=== PATIENT | male | born 1950 | race Caucasian/White ===

== ENCOUNTER 2016-12-31 12:29 | Inpatient (IN) | payer MEDICARE ==
[~2016-12-31] VITALS: Ht 177.8 cm; Wt 66.9 kg
[~2016-12-31 12:29] MED LIST: ALBU0.086 NEB; AMIT25 PO; AMLO5 PO; FENT100D TD; FERR324T4 PO; GABA400C5 PO; IPRA0.02 NEB; LACT20SO4 PO; LEVA500T PO; LEVE500T10 PO; LEXA10TA PO; OMPR20CCR PO; PRED20 PO; RISP2TAB2 PO; VITA500S3 PO; Z.0.OXYGEN INH
[2016-12-31 12:36] VITALS: BP 147/95; PULSE 87; RESP 20; TEMP 98.5; O2SAT 92
[2016-12-31] MEDS ORDERED: ZOLP10TA3 PO (12:58)
[2016-12-31] MEDS ORDERED: BUPR300T PO (12:58)
--- NOTE | 2016-12-31 12:58 | PD ---
HPI Chief Complaint: Suicide Ideation/Attempt Time Seen by Provider: 12:53 Travel History International Travel<30 days: No Contact w/Intl Traveler<30days: No Traveled to known affect area: No History of Present Illness HPI This 66-year-old male presents with complaint of suicidal ideation. He says that last night he was going to kill himself. He started the lawnmower in the shed and one in the shed and stayed there for a couple of minutes . He has a history of depression. He has tried to kill himself in the past. He sees Dr. Hall on a regular basis and is currently on amitriptyline and Wellbutrin. He is a heavy drinker and has DTs when he stops drinking. He uses oxygen at night because of COPD. He continues to smoke 2 packs a day He has chronic pain in his left shoulder from a staph infection. He is on fentanyl patches for this pain. PFSH Past Medical History Arthritis: No Asthma: No Autoimmune Disease: No Blood Disorders: No Anxiety: No Depression: No Cancer: Yes (MELANOMA RIGHT ARM) Cardiovascular Problems: No High Cholesterol: No Chemotherapy: No Cirrhosis: Yes COPD: Yes Cerebrovascular Accident: Yes Diabetes: No Diminished Hearing: No Endocrine: No Gastrointestinal Disorders: Yes (PEPTIC ULCER HX, GERD) GERD: No Genitourinary: No Hepatitis: Yes (C) Hiatal Hernia: No Hypertension: Yes Immune Disorder: No Implanted Vascular Access Dvce: Yes Musculoskeletal: Yes (S/P SHOULDER INFECTION/ FUSION (LOOSE HARDWARE)) Neurologic: Yes (STROKE, SEIZURE (WITH STROKE)) Psychiatric: Yes (ANXIETY) Reproductive: No Respiratory: Yes (COPD) Immunizations Current: Yes Migraines: No Myocardial Infarction: No Radiation Therapy: No Seizures: Yes (on medications) Sleep Apnea: No Thyroid Disease: No Ulcer: No PNEUMOCCOCAL Vaccine (Year): 1 Past Surgical History Abdominal Surgery: No AICD: No Body Medical Devices: LEFT SHOULDER HARDWARE Cardiac Surgery: No Ear Surgery: No Endocrine Surgery: No Eye Surgery: No Genitourinary Surgery: No Gynecologic Surgery: No Joint Replacement: No Neurologic Surgery: No Oral Surgery: Yes (TEETH REMOVED) Pacemaker: No Thoracic Surgery: No Other Surgery: Yes (R ARM/left shoulder) Social History Alcohol Use: No Tobacco Use: Yes (1 PPD) Substance Use: No Allergies-Medications (Allergen,Severity, Reaction): Coded Allergies: *MDRO Multi-Drug Resistant Organism (Verified Adverse Reaction, Unknown, ) MDR-Streptococcus Pneumoniae blood 12/2015 Uncoded Allergies: "muscle relaxers" (Adverse Reaction, Unknown, stomach issues, 12/31/16) Reported Meds & Prescriptions Reported Meds & Active Scripts Active Lactulose 30 Ml Syrp 30 Ml PO DAILY Fentanyl 100 Mcg/Hr patch (Fentanyl) 100 Mcg/Hr Patch 1 Patch TD Q3D 30 Days Norvasc (Amlodipine Besylate) 5 Mg Tab 5 Mg PO DAILY Reported Zolpidem (Zolpidem Tartrate) 10 Mg Tab 10 Mg PO HS PRN Bupropion HCl ER 24 HR (Bupropion HCl) 300 Mg Tab 300 Mg PO DAILY Vitamin B-12 (Cyanocobalamin) 500 Mcg Tab 1 Tab PO DAILY Oxygen (O2) (Miscellaneous Medication) Inha 3 L INH HS Gabapentin 400 Mg Cap 400 Mg PO QID Ferrous Sulfate 324 Mg Tab 325 Mg PO DAILY Elavil 25 Mg Tab (Amitriptyline Hcl) 25 Mg Tab 25 Mg PO BID Levetiracetam Er (Levetiracetam) 500 Mg Tab 500 Mg PO BID Review of Systems General / Constitutional: No: Fever, Chills Eyes: No: Diploplia, Blurred Vision HENT: No: Headaches, Vertigo Cardiovascular: No: Chest Pain or Discomfort, Palpitations Respiratory: Positive: Shortness of Breath, No: Cough Gastrointestinal: No: Nausea, Vomiting Genitourinary: No: Frequency Neurologic: No: Dizziness Psychiatric: Positive: Depression, Suicidal Ideations Endocrine: No: Heat Intolerance Hematologic/Lymphatic: No: Easy Bruising Physical Exam Narrative GENERAL: Thin chronically ill appearing male SKIN: Warm and dry. HEAD: Atraumatic. Normocephalic. EYES: Pupils equal and round. No scleral icterus. No injection or drainage. ENT: No nasal bleeding or discharge. Mucous membranes pink and moist. NECK: Trachea midline. No JVD. CARDIOVASCULAR: Regular rate and rhythm. No murmur appreciated. RESPIRATORY: No accessory muscle use. Clear to auscultation. Breath sounds equal bilaterally. GASTROINTESTINAL: Abdomen soft, non-tender, nondistended. Hepatic and splenic margins not palpable. MUSCULOSKELETAL: No clubbing. No cyanosis. No edema. He has limited movement of the shoulder on the left side. The left elbow NEUROLOGICAL: Awake and alert. No obvious cranial nerve deficits. Motor grossly within normal limits. Normal speech. PSYCHIATRIC: Depressed mood Data Data Last Documented VS Vital Signs Date Time Temp Pulse Resp B/P Pulse Ox O2 Delivery O2 Flow Rate FiO2 12/31/16 12:36 98.5 87 20 147/95 92 Orders Complete Blood Count With Diff (12/31/16 12:53) Comprehensive Metabolic Panel (12/31/16 12:53) Urinalysis - C+S If Indicated (12/31/16 12:53) Psych Screen (12/31/16 12:53) Drug Screen, Random Urine (12/31/16 12:53) Alcohol (Ethanol) (12/31/16 12:53) Lipase (12/31/16 12:53) Al-Mag Hy-Si 40-40-4 Mg/Ml Liq (Mag-Al P (12/31/16 13:00) Pantoprazole (Protonix) (12/31/16 13:00) Labs Laboratory Tests Test 12/31/16 12/31/16 12:55 13:10 Urine Collection Type CLEAN CATCH Urine Color YELLOW Urine Turbidity CLEAR Urine pH 6.0 Urine Specific [place] 1.006 Urine Protein NEG mg/dL Urine Glucose (UA) NEG mg/dL Urine Ketones NEG mg/dL Urine Occult Blood NEG Urine Nitrite NEG Urine Bilirubin NEG Urine Leukocyte Esterase NEG Urine Squamous Epithelial 0-5 /hpf Cells Urine Amorphous Sediment FEW Microscopic Urinalysis Comment CULT NOT INDICATED Urine Collection Time 1255 Urine Opiates Screen NEG Urine Barbiturates Screen NEG Urine Amphetamines Screen NEG Urine Benzodiazepines Screen NEG Urine Cocaine Screen NEG Urine Cannabinoids Screen NEG White Blood Count 6.2 TH/MM3 Red Blood Count 5.01 MIL/MM3 Hemoglobin 16.0 GM/DL Hematocrit 48.3 % Mean Corpuscular Volume 96.4 FL Mean Corpuscular Hemoglobin 32.0 PG Mean Corpuscular Hemoglobin 33.2 % Concent Red Cell Distribution Width 13.1 % Platelet Count 91 TH/MM3 Mean Platelet Volume 8.4 FL Neutrophils (%) (Auto) 73.7 % Lymphocytes (%) (Auto) 16.9 % Monocytes (%) (Auto) 8.6 % Eosinophils (%) (Auto) 0.6 % Basophils (%) (Auto) 0.2 % Neutrophils # (Auto) 4.6 TH/MM3 Lymphocytes # (Auto) 1.1 TH/MM3 Monocytes # (Auto) 0.5 TH/MM3 Eosinophils # (Auto) 0.0 TH/MM3 Basophils # (Auto) 0.0 TH/MM3 CBC Comment AUTO DIFF Differential Comment AUTO DIFF CONFIRMED Platelet Estimate LOW Platelet Morphology Comment NORMAL Red Cell Morphology Comment NORMAL Sodium Level 135 MEQ/L Potassium Level 4.0 MEQ/L Chloride Level 102 MEQ/L Carbon Dioxide Level 24.1 MEQ/L Anion Gap 9 MEQ/L Blood Urea Nitrogen 10 MG/DL Creatinine 0.63 MG/DL Estimat Glomerular Filtration 127 ML/MIN Rate Random Glucose 101 MG/DL Calcium Level 8.6 MG/DL Total Bilirubin 0.8 MG/DL Aspartate Amino Transf 157 U/L (AST/SGOT) Alanine Aminotransferase 161 U/L (ALT/SGPT) Alkaline Phosphatase 189 U/L Total Protein 8.7 GM/DL Albumin 3.5 GM/DL Lipase 72 U/L Ethyl Alcohol Level LESS THAN 3 MG/DL MDM Medical Decision Making Medical Screen Exam Complete: Yes Emergency Medical Condition: Yes Medical Record Reviewed: Yes Differential Diagnosis Differential includes substance abuse, suicidal ideation, depression, MPV Narrative Course Patient's blood alcohol is less than 3. He has mild elevation of his transaminases which has been present previously. He has been told that he has cirrhosis He is medically cleared for psychiatric evaluation. I have signed a Chaudhary act. Patient is being taken to the [place] psychiatric emergency department Diagnosis Primary Impression: Major depression Additional Impression: Suicidal ideation Rishi Morrison MD Dec 31, 2016 12:58
[2016-12-31] MEDS ORDERED: PANTOPRAZOLE SOD 40 MG DELAYED RELEASE TAB PO ONE (13:00)
[2016-12-31] MEDS ORDERED: ALUMINUM/MAGNESIUM/SIMETH 30 ML CUP PO ONE (13:00)
[2016-12-31 13:27] LABS: BLOOD, URINE NEG (NEG); GLUCOSE,URINE NEG (NEG); KETONE, URINE NEG (NEG); NITRITE,URINE NEG (NEG)
[2016-12-31 13:28] LABS: METHOD OF COLLECTION CLEAN CATCH; URINE COLOR YELLOW (YELLW/STRAW)
[2016-12-31 13:32] LABS: CHLORIDE 102 MEQ/L (98-107); SODIUM (NA) 135 MEQ/L (136-145)
[2016-12-31 13:36] LABS: ANION GAP 9 MEQ/L (5-15); BICARBONATE 24.1 MEQ/L (21.0-32.0); BLOOD UREA NITROGEN 10 MG/DL (7-18)
[2016-12-31 13:39] LABS: ALT (GPT) 161 U/L (12-78); AST (GOT) 157 U/L (15-37); AUTOMATED NEUTROPHIL # 4.6 TH/MM3 (1.8-7.7); BASOPHIL % 0.2 % (0.0-2.0); EOSINOPHIL % 0.6 % (0.0-4.0); GLOMERULAR FILTRATION RATE 127 ML/MIN (>89); HEMATOCRIT 48.3 % (39.0-51.0); HEMO FLAGS AUTO DIFF; LYMPH % 16.9 % (9.0-44.0); LYMPHOCYTE # 1.1 TH/MM3 (1.0-4.8); MEAN CELL VOLUME 96.4 FL (80.0-100.0); MEAN CORPUSCULAR HGB CONC 33.2 % (32.0-36.0); MONO % 8.6 % (0.0-8.0); NEUT % 73.7 % (16.0-70.0); PLATELET COUNT 91 TH/MM3 (150-450); RED BLOOD COUNT 5.01 MIL/MM3 (4.50-5.90); RED CELL DISTRIBUTION WIDTH 13.1 % (11.6-17.2); WHITE BLOOD COUNT 6.2 TH/MM3 (4.0-11.0)
[2016-12-31 13:40] LABS: TOTAL BILIRUBIN ADULT 0.8 MG/DL (0.2-1.0)
[2016-12-31 13:42] LABS: ALKALINE PHOSPHATASE 189 U/L (45-117)
[2016-12-31 13:42] LABS: COMMENT (UR) CULT NOT INDICATED; CULTURE IF INDICATED CULT NOT INDICATED; SQUAMOUS EPITHELIAL CELL URINE 0-5 /hpf (0-5)
[2016-12-31 13:44] LABS: AMPHETAMINE, URINE NEG (NEG)
[2016-12-31 13:47] LABS: BARBITURATES, URINE NEG (NEG)
[2016-12-31 13:49] LABS: COCAINE, URINE NEG (NEG)
[2016-12-31 13:54] LABS: PLATELET ESTIMATE SMEAR LOW (NORMAL); PLATELET MORPHOLOGY NORMAL (NORMAL); SCAN/DIFF AUTO DIFF CONFIRMED
[2016-12-31 14:55] VITALS: BP 152/101
[2016-12-31 18:00] VITALS: BP 144/91; PULSE 78; RESP 18; TEMP 98.2; O2SAT 96
[2016-12-31] MEDS ORDERED: LORazepam 2 MG/ML VIAL - age > 65 yrs IM PRN (19:00)
[2016-12-31] MEDS ORDERED: MAGNESIUM HYDROXIDE SUSP 30 ML CUP PO PRN (19:00)
[2016-12-31] MEDS: REMOVE OLD NICOTINE PATCH T-DERMAL SCH (21:00)
[2016-12-31] MEDS: levETIRAcetam 500 MG TAB PO SCH (21:18)
[2016-12-31] MEDS: AMITRIPTYLINE HCL 25 MG TAB PO SCH (21:18)
[2016-12-31] MEDS: GABAPENTIN 400 MG CAP PO SCH (21:18)
[2016-12-31 22:16] VITALS: BP 138/85; PULSE 76; RESP 17; TEMP 96.7
[2016-12-31] MEDS: ZOLPIDEM TARTRATE 10 MG TAB PO PRN (22:48)
[2017-01-01 06:36] VITALS: BP 108/69; PULSE 81; RESP 16; TEMP 98.6; O2SAT 85
[2017-01-01] MEDS: buPROPion HCL 150 MG SUSTAINED RELEASE TAB PO SCH (08:00)
[2017-01-01 08:20] LABS: ANION GAP 6 MEQ/L (5-15); BICARBONATE 27.6 MEQ/L (21.0-32.0); BLOOD UREA NITROGEN 12 MG/DL (7-18); CHLORIDE 102 MEQ/L (98-107); GLOMERULAR FILTRATION RATE 121 ML/MIN (>89); HDL CHOLESTEROL 56.2 MG/DL (40.0-60.0); LDL CHOLESTEROL 43 MG/DL (0-99); POTASSIUM 3.9 MEQ/L (3.5-5.1); SODIUM (NA) 136 MEQ/L (136-145)
[2017-01-01] MEDS: levETIRAcetam 500 MG TAB PO SCH ×2 (08:35→21:37)
[2017-01-01] MEDS: FERROUS SULFATE 325 MG (65 MG ELEMENTAL IRON) TAB PO SCH (08:35)
[2017-01-01] MEDS: LACTULOSE SYRUP 20 GM/30 ML CUP PO SCH (08:35)
[2017-01-01] MEDS: NICOTINE 21 MG/24 HR PATCH T-DERMAL SCH (08:35)
[2017-01-01] MEDS: GABAPENTIN 400 MG CAP PO SCH ×4 (08:36→21:37)
[2017-01-01] MEDS: AMITRIPTYLINE HCL 25 MG TAB PO SCH ×2 (08:38→21:37)
[2017-01-01] MEDS ORDERED: chlordiazePOXIDE 25 MG CAP PO PRN (11:00)
[2017-01-01] MEDS: THIAMINE HCL 100 MG TAB PO SCH (12:00)
[2017-01-01] MEDS: MULTIVITAMIN TAB PO SCH (12:00)
[2017-01-01] MEDS ORDERED: RESP: ALBUTEROL 2.5 MG/IPRATROPIUM 0.5 MG NEB (PRN) NEB (13:30)
[2017-01-01] MEDS ORDERED: cloNIDine HCL 0.2 MG TAB PO PRN (13:30)
--- NOTE | 2017-01-01 13:32 | PD.CONS ---
HPI Service [facility] Hospitalists Consult Requested By Reason for Consult Medical Management Primary Care Physician Ramya Blanca MD Diagnoses: History of Present Illness Patient is a pleasant 66-year-old male with history of chronic bilateral hepatitis C, cirrhosis, depression, chronic pain, and chronic opioid therapy. Patient was hospitalized in December 2015 due to opioid overdose. Patient is now rehospitalized in the psychiatry department at [facility] due to suicidal ideation and depression. The medical team as consult and to assist with patient's chronic medical issues. Patient has no acute medical complaints at this time. Review of Systems Constitutional: DENIES: Diaphoretic episodes, Fatigue, Fever, Weight gain, Weight loss, Chills, Dizziness, Change in appetite, Night Sweats Endocrine: DENIES: Heat/cold intolerance, Polydipsia, Polyuria, Polyphagia Eyes: DENIES: Blurred vision, Diplopia, Eye inflammation, Eye pain, Vision loss , Photosensitivity, Double Vision Ears, nose, mouth, throat: DENIES: Tinnitus, Hearing loss, Vertigo, Nasal discharge, Oral lesions, Throat pain, Hoarseness, Ear Pain, Running Nose, Epistaxis, Sinus Pain, Toothache, Odynophagia Respiratory: DENIES: Apneas, Cough, Snoring, Wheezing, Hemoptysis, Sputum production, Shortness of breath Cardiovascular: DENIES: Chest pain, Palpitations, Syncope, Dyspnea on Exertion , PND, Lower Extremity Edema, Orthopnea, Claudication Gastrointestinal: DENIES: Abdominal pain, Black stools, Bloody stools, BRB per rectum, Constipation, Diarrhea, GERD, Nausea, Reflux, Vomiting, Difficulty Swallowing, Anorexia Genitourinary: DENIES: Urinary incontinence, Urgency, Hematuria, Dysuria, Nocturia Musculoskeletal: DENIES: Joint pain, Muscle aches, Stiffness, Joint Swelling, Back pain, Neck pain Integumentary: DENIES: Abnormal pigmentation, Nail changes, Pruritus, Rash Hematologic/lymphatic: DENIES: Bruising, Lymphadenopathy Immunologic/allergic: DENIES: Eczema, Urticaria Neurologic: DENIES: Abnormal gait, Headache, Localized weakness, Paresthesias, Seizures, Speech Problems, Tremor, Poor Balance Psychiatric: COMPLAINS OF: Depression, Agitation, Suicidal Ideation, DENIES: Anxiety, Confusion, Mood changes, Hallucinations, Homicidal Ideation, Delusions , History of Bipolar, History of Schizophrenia Past Family Social History Past Medical History 1) alcohol dependence in remission 2) chronic bilateral hepatitis C, status post interferon therapy 3) cirrhosis 4) history of chronic osteomyelitis with malunion of left shoulder 5) major depression 6) episodic mood disorder 7) history of esophageal varices 8) gastropathy with GERD 9) hypertension 10) hyperlipidemia 11) chronic opioid therapy 12) OCD 13) pulmonary fibrosis 14) history of seizures 15) panic disorder with Agoraphobia 16) hypogonadism Past Surgical History 1) multiple EGDs and colonoscopies in the past 2) lipectomy at buttock 3) liver biopsy 4) shoulder arthrodesis in 2008 5) vocal cord polypectomy Reported Medications Reported Meds & Active Scripts Active Lactulose 30 Ml Syrp 30 Ml PO DAILY Fentanyl 100 Mcg/Hr patch (Fentanyl) 100 Mcg/Hr Patch 1 Patch TD Q3D 30 Days Norvasc (Amlodipine Besylate) 5 Mg Tab 5 Mg PO DAILY Reported Zolpidem (Zolpidem Tartrate) 10 Mg Tab 10 Mg PO HS PRN Bupropion HCl ER 24 HR (Bupropion HCl) 300 Mg Tab 300 Mg PO DAILY Vitamin B-12 (Cyanocobalamin) 500 Mcg Tab 1 Tab PO DAILY Oxygen (O2) (Miscellaneous Medication) Inha 3 L INH HS Gabapentin 400 Mg Cap 400 Mg PO QID Ferrous Sulfate 324 Mg Tab 325 Mg PO DAILY Elavil 25 Mg Tab (Amitriptyline Hcl) 25 Mg Tab 25 Mg PO BID Levetiracetam Er (Levetiracetam) 500 Mg Tab 500 Mg PO BID Allergies: Coded Allergies: *MDRO Multi-Drug Resistant Organism (Verified Adverse Reaction, Unknown, ) MDR-Streptococcus Pneumoniae blood 12/2015 Uncoded Allergies: "muscle relaxers" (Adverse Reaction, Unknown, stomach issues, 12/31/16) Family History Noncontributory Social History Previously smoked 1-1/2 packs per day for 35 years but quit in 2007 Previously heavily consumed alcohol, unclear patient currently drinking but . 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 SKIN: No rashes, ecchymoses or lesions. Cool and dry. HEAD: Atraumatic. Normocephalic. No temporal or scalp tenderness. EYES: Pupils equal round and reactive. Extraocular motions intact. No scleral icterus. No injection or drainage. ENT: Nose without bleeding, purulent drainage or septal hematoma. Throat without erythema, tonsillar hypertrophy or exudate. Uvula midline. Airway patent. NECK: Trachea midline. No JVD or lymphadenopathy. Supple, nontender, no meningeal signs. CARDIOVASCULAR: Regular rate and rhythm without murmurs, gallops, or rubs. RESPIRATORY: Clear to auscultation. Breath sounds equal bilaterally. No wheezes , rales, or rhonchi. GASTROINTESTINAL: Abdomen soft, non-tender, nondistended. No hepato-splenomegaly , or palpable masses. No guarding. MUSCULOSKELETAL: Extremities without clubbing, cyanosis, or edema. No joint tenderness, effusion, or edema noted. No calf tenderness. Negative Homans sign bilaterally. NEUROLOGICAL: Awake and alert. Cranial nerves II through XII intact. Motor and sensory grossly within normal limits. Five out of 5 muscle strength in all muscle groups. Normal speech. Laboratory Laboratory Tests Test 01/01/17 07:10 Sodium Level 136 Potassium Level 3.9 Chloride Level 102 Carbon Dioxide Level 27.6 Anion Gap 6 Blood Urea Nitrogen 12 Creatinine 0.66 Estimat Glomerular Filtration 121 Rate Random Glucose 96 Calcium Level 8.6 Triglycerides Level 82 Cholesterol Level 116 LDL Cholesterol 43 HDL Cholesterol 56.2 Cholesterol/HDL Ratio 2.06 Result Diagram: 12/31/16 1310 01/01/17 0710 Assessment and Plan Problem List: (1) Major depression Status: Chronic Plan: - Defer treatment to psychiatry service (2) Suicidal ideation Status: Acute Plan: - Defer treatment to psychiatry service (3) HTN (hypertension) Status: Chronic Plan: - Patient is currently normotensive without blood pressure medication - When necessary Catapres, if needed (4) COPD (chronic obstructive pulmonary disease) Status: Acute Plan: - Patient has a long smoking history, but has stopped - Duo nebs every 6 hours when necessary Problem Qualifiers (1) Major depression: (2) HTN (hypertension): Qualified Code: I10 - Essential hypertension (3) COPD (chronic obstructive pulmonary disease): Jorge Montoya DO Jan 01, 2017 13:32
[2017-01-01 16:19] LABS: HEMOGLOBIN A1a 0.9 %; HEMOGLOBIN A1b 0.7 %; HEMOGLOBIN Ao 87.2 %; HEMOGLOBIN F 0.9 %; HEMOGLOBIN LA1C 1.8 %; HEMOGLOBIN P3 3.3 %
[2017-01-01 19:59] VITALS: BP 92/53; PULSE 75; RESP 16; TEMP 97.8; O2SAT 93
--- NOTE | 2017-01-01 20:07 | MH ---
cc: MARION GOMEZ DATE OF ADMISSION 12/31/2016 PRESENTING CHIEF COMPLAINT AND HISTORY OF PRESENT ILLNESS This 66-year-old white male was brought to the emergency room of this hospital voluntarily where the Chaudhary ACT was initiated by the emergency room physician because of increasing depression and suicidal thoughts. In the emergency room he was evaluated by psychiatric screener. He is a recovering alcoholic and has been drinking heavily recently. He indicated that he had thoughts of killing himself and had considered starting his director of coding in the garage but changed his mind. During this evaluation he acknowledged still entertaining suicidal thoughts, denied any homicidal ideations. He is currently being followed by Dr. Hall at [facility]. The case was discussed with me and it was felt he needed to be hospitalized for further assessment and treatment. Mr. Yuen is known to me from his admission to this unit in March of 2012. Interestingly at that time also he had presented with more or less similar picture i.e. alcohol intoxication, depression, suicidal thoughts by carbon monoxide poisoning. At the time of this evaluation he was unable to recognize me. When asked about his understanding of the reason for this hospitalization he responded "I am an alcoholic. I was sober for 5 years but started drinking heavily again about a week or so ago. I have been drinking a pint of vodka daily. I thought of killing myself by turning on my director of coding in the garage but changed my mind". When asked about the reason for him entertaining suicidal thoughts, he was somewhat vague, "I used fentanyl patch for pain in my left shoulder. I wanted to come off of it but have not been able to." He is currently being followed at [facility] by pain management and has been on fentanyl patch. He stated that he wanted to come off of it because it is not helping him. When asked if he was open to trying any other pain medication he stated that he would not be and as a matter of fact, he would like to come off of other medications as well. He stated that he has been attending AA meetings regularly up until about a week ago when he relapsed and started drinking again. He could not explain as to why he did not call his sponsor. When offered substance abuse program, he was reluctant. He stated that he has been feeling "sad and depressed" for past two weeks. He has been experiencing initial insomnia. He denied any changes appetite but acknowledged decline in his memory and concentration. On questioning he did not give any history suggestive of bipolar affective disorder. Further exploration did not reveal any other significant psychosocial stressor. He did not give any history suggestive of bipolar affective disorder. PAST PSYCHIATRIC HISTORY His first psychiatric intervention was about 24 years ago when he was evaluated by psychiatrist in [place] for what he described as "depression." At that time also he had entertained suicidal thoughts. He has previously been admitted to psychiatric facilities at least six times and is currently being followed by Dr. Hall at [facility]. As mentioned he was admitted to my service in March of 2012 at which time I had discharged him on Lexapro. He stated since then he has continued on the Lexapro but Dr. Hall also added Elavil and Wellbutrin. It should be noted that he has history of seizure disorder for which he is on Keppra and Neurontin. He has not had any seizures for "many years. He has been admitted to substance abuse program in [facility] at least three times. Previously he was also under care of Dr. Raghavendra Madsen for 10 years. PAST MEDICAL HISTORY 1. He has history of COPD. 2. Hepatitis C. 3. Cirrhosis of the liver. 4. Status post surgery on the left shoulder. 5. Chronic shoulder pain. 6. Gastroesophageal reflux disease. 7. Hyperlipidemia. 8. Hypertension. 9. Chronic low back pain. 10. History of melanoma. 11. Osteoarthritis. 12. Seizure disorder. 13. Questionable history of CVA without deficits. 14. Chronic anemia. PAST SURGICAL HISTORY 1. As mentioned he has had several surgeries on his left shoulder. 2. Vocal cord polypectomy. 3. Lipoma excision. 4. Melanoma excision. 5. Liver biopsy. ALLERGIES He denied any drug allergies. MEDICATIONS His current medications are: 1. Lactulose 30 ml p.o. daily. 2. Fentanyl patch 100 mcg per hour q.3 days. 3. Ambien 10 mg q.h.s. p.r.n. 4. Wellbutrin SR 300 milligrams daily. 5. Vitamin B12 500 mcg daily. 6. Gabapentin 400 mg four times a day. 7. Ferrous sulfate 325 milligrams p.o. daily. 8. Elavil 25 mg b.i.d. 9. Levetiracetam 500 milligrams twice a day. FAMILY HISTORY His parents are . He has a brother who is also an alcoholic. He denied any family history of psychiatric illness. PERSONAL AND SOCIAL HISTORY He grew up in [facility] and finished high school. He mostly worked as a motor repairman. Currently he is unemployed. He was incarcerated four times on charges of possession of stolen property, driving under the influence etc. He was twice. His first marriage ended in divorce after 3 years. He has a son from this marriage. His second marriage lasted 30 years and he is from his . He has one son and daughter from this marriage. He started drinking at the age of 15 and it progressively got worse over the years. He started abusing drugs around this age and admitted to multiple drug abuse. His drug of choice was opiate which he also used intravenously. He has been chemically free for 15 years. He denied any history of physical or sexual trauma. CLINICAL OBSERVATION AND MENTAL STATUS EXAMINATION At the time of this evaluation Mr. Yuen presented as a thinly built, somewhat poorly groomed, unkempt white male who looked his stated age. He was overall pleasant and cooperative with this interviewer and volunteered information spontaneously. No overt anger or hostility was noticed. No bizarre behavior or mannerisms were noticed. His speech was coherent and appropriate. His affect was appropriate, somewhat blunted. Subjectively described his mood as "I have been feeling depressed." Thought processes did not reveal any looseness of association or flight of ideas. No coral delusions, auditory or visual hallucinations were noticed or reported. As mentioned he acknowledged entertaining suicidal thoughts and at least three previous suicide attempts. He denied any homicidal ideations at this time. When further inquired he denied active intent to harm himself "I have been drinking, I have been kind of frustrated but I know taking your own life is not the solution, that is why I decided to come here for help." Cognitive functions, he was alert, oriented to time, place, person and situation. Memory immediate he could do 5 digits forward and 4 digits backward. Recent he could recall two out of three objects after 5 minutes. Remote he could recall presidents up to President Alfredo. His attention and concentration was impaired. He could do serial sevens up to 65. His judgment and insight was felt to be fair. REVIEW OF SYSTEMS He denied any diarrhea, vomiting or abdominal pain. He denied dysuria, hematuria, frequency. He denied any chest pain, palpitation but has been experiencing dyspnea on exertion. He denied any muscle weakness but has history of seizures. PHYSICAL EXAMINATION Physical examination was not done as this has already been done in the emergency room. No acute medical issues were identified. No gross neurological deficits noticed at this time. DIAGNOSTIC IMPRESSION [place] I: Dysthymic disorder. Polysubstance abuse. Chronic alcohol abuse. Acute alcohol intoxication. 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 [place] III: Hypertension, chronic obstructive pulmonary disease, chronic back and left shoulder pain, status post surgery of left shoulder, history of seizure disorder, gastroesophageal reflux disease, anemia, hepatitis C, cirrhosis of the liver, hyperlipidemia, osteoarthritis, questionable history of CVA without deficit. [place] IV: Severity of psychosocial stressors moderate i.e. multiple medical issues, chronic pain, chronic psychiatric illness. [place] V: Current GAF score 40. FORMULATION AND TREATMENT PLAN Based on this evaluation and my knowledge of his case, Mr. Yuen is experiencing a moderate degree of depression as manifested by persistent feelings of sadness, neurovegetative symptoms. His depression is compounded by above identified psychosocial stressors. The major issue however remains chronic alcohol abuse. He has good track record and has been able to maintain sobriety for several years. Unfortunately he did not use the tools to prevent relapse this time. He was encouraged to consider admission to residential alcohol rehab program but he was reluctant as he prefers continuation of participation in AA meetings. This as well as above identified psychosocial stressors will be addressed in individual psychotherapy sessions. He will participate in various other unit activities i.e. occupational therapy, recreational therapy, group therapy. To alleviate his depression he will be maintained on the Lexapro. Considering history of seizure disorder he will be tapered off of the Wellbutrin. He will be detoxed with Librium, thiamine and multivitamin. His identified problems are: 1. Depression. 2. Chronic alcohol abuse. 3. Current psychosocial stressors. His assets are: 1. He is verbal. 2. Has insight into his issues. His estimated length of stay is 5-7 days. MD BETO Andino/SHADIA /6:48 PM /7:23 PM
[2017-01-01] MEDS: REMOVE OLD NICOTINE PATCH T-DERMAL SCH (21:00)
[2017-01-02] MEDS: ACETAMINOPHEN 325 MG TAB PO PRN ×3 (06:00→21:18)
[2017-01-02 06:03] VITALS: BP 118/68; PULSE 76; RESP 16; TEMP 97.7; O2SAT 96
[2017-01-02] MEDS: NICOTINE 21 MG/24 HR PATCH T-DERMAL SCH (09:00)
[2017-01-02] MEDS: MULTIVITAMIN TAB PO SCH (09:55)
[2017-01-02] MEDS: buPROPion HCL 150 MG SUSTAINED RELEASE TAB PO SCH (09:55)
[2017-01-02] MEDS: AMITRIPTYLINE HCL 25 MG TAB PO SCH ×2 (09:55→21:17)
[2017-01-02] MEDS: FERROUS SULFATE 325 MG (65 MG ELEMENTAL IRON) TAB PO SCH (09:55)
[2017-01-02] MEDS: THIAMINE HCL 100 MG TAB PO SCH (09:56)
[2017-01-02] MEDS: levETIRAcetam 500 MG TAB PO SCH ×2 (09:56→21:17)
[2017-01-02] MEDS: GABAPENTIN 400 MG CAP PO SCH ×4 (09:56→21:17)
[2017-01-02] MEDS: LACTULOSE SYRUP 20 GM/30 ML CUP PO SCH (09:56)
[2017-01-02] MEDS: ESCITALOPRAM OXALATE 10 MG TAB PO SCH (13:33)
[2017-01-02] MEDS: REMOVE OLD NICOTINE PATCH T-DERMAL SCH (21:00)
[2017-01-02] MEDS: ZOLPIDEM TARTRATE 10 MG TAB PO PRN (21:17)
[2017-01-02 21:22] VITALS: BP 124/80; PULSE 82; RESP 16; TEMP 98.1; O2SAT 95
[2017-01-02] MEDS: LORazepam 0.5 MG TAB age > 65 yrs PO PRN (22:19)
[2017-01-03 05:59] VITALS: BP 122/83; PULSE 75; RESP 16; TEMP 98.6; O2SAT 95
[2017-01-03] MEDS: GABAPENTIN 400 MG CAP PO SCH ×4 (10:00→21:44)
[2017-01-03] MEDS: ESCITALOPRAM OXALATE 10 MG TAB PO SCH (10:01)
[2017-01-03] MEDS: THIAMINE HCL 100 MG TAB PO SCH (10:01)
[2017-01-03] MEDS: AMITRIPTYLINE HCL 25 MG TAB PO SCH ×2 (10:01→21:44)
[2017-01-03] MEDS: levETIRAcetam 500 MG TAB PO SCH ×2 (10:01→21:44)
[2017-01-03] MEDS: LACTULOSE SYRUP 20 GM/30 ML CUP PO SCH (10:01)
[2017-01-03] MEDS: FERROUS SULFATE 325 MG (65 MG ELEMENTAL IRON) TAB PO SCH (10:01)
[2017-01-03] MEDS: buPROPion HCL 150 MG SUSTAINED RELEASE TAB PO SCH (10:01)
[2017-01-03] MEDS: MULTIVITAMIN TAB PO SCH (10:02)
[2017-01-03] MEDS: NICOTINE 21 MG/24 HR PATCH T-DERMAL SCH (10:02)
[2017-01-03] MEDS: ACETAMINOPHEN 325 MG TAB PO PRN (10:04)
[2017-01-03 18:00] VITALS: BP 124/73; PULSE 80; RESP 16; TEMP 98; O2SAT 96
[2017-01-03] MEDS: REMOVE OLD NICOTINE PATCH T-DERMAL SCH (21:00)
[2017-01-03] MEDS: LORazepam 0.5 MG TAB age > 65 yrs PO PRN (22:04)
[2017-01-03] MEDS: ZOLPIDEM TARTRATE 10 MG TAB PO PRN (22:04)
[2017-01-04 05:51] VITALS: BP 105/57; PULSE 76; RESP 18; TEMP 98.4; O2SAT 94
[2017-01-04] MEDS: ESCITALOPRAM OXALATE 10 MG TAB PO SCH (08:46)
[2017-01-04] MEDS: levETIRAcetam 500 MG TAB PO SCH ×2 (08:46→21:29)
[2017-01-04] MEDS: MULTIVITAMIN TAB PO SCH (08:46)
[2017-01-04] MEDS: buPROPion HCL 150 MG SUSTAINED RELEASE TAB PO SCH (08:46)
[2017-01-04] MEDS: GABAPENTIN 400 MG CAP PO SCH ×4 (08:46→21:29)
[2017-01-04] MEDS: FERROUS SULFATE 325 MG (65 MG ELEMENTAL IRON) TAB PO SCH (08:46)
[2017-01-04] MEDS: LACTULOSE SYRUP 20 GM/30 ML CUP PO SCH (08:46)
[2017-01-04] MEDS: THIAMINE HCL 100 MG TAB PO SCH (08:46)
[2017-01-04] MEDS: AMITRIPTYLINE HCL 25 MG TAB PO SCH ×2 (08:51→21:29)
[2017-01-04] MEDS: ACETAMINOPHEN 325 MG TAB PO PRN ×3 (08:56→21:30)
[2017-01-04] MEDS: NICOTINE 21 MG/24 HR PATCH T-DERMAL SCH (09:00)
[2017-01-04] MEDS: fentaNYL 50 MCG/HR PATCH TD SCH (15:30)
[2017-01-04 18:49] VITALS: BP 122/86; PULSE 79; RESP 18; TEMP 97.8; O2SAT 95
[2017-01-04] MEDS: REMOVE OLD NICOTINE PATCH T-DERMAL SCH (21:00)
[2017-01-04] MEDS: ZOLPIDEM TARTRATE 10 MG TAB PO PRN (21:29)
[2017-01-04] MEDS: LORazepam 0.5 MG TAB age > 65 yrs PO PRN (21:29)
[2017-01-05 05:28] VITALS: BP 105/64; PULSE 74; RESP 16; TEMP 98.4; O2SAT 92
[2017-01-05] MEDS: NICOTINE 21 MG/24 HR PATCH T-DERMAL SCH (08:24)
[2017-01-05] MEDS: LACTULOSE SYRUP 20 GM/30 ML CUP PO SCH (08:24)
[2017-01-05] MEDS: FERROUS SULFATE 325 MG (65 MG ELEMENTAL IRON) TAB PO SCH (08:25)
[2017-01-05] MEDS: THIAMINE HCL 100 MG TAB PO SCH (08:25)
[2017-01-05] MEDS: GABAPENTIN 400 MG CAP PO SCH ×4 (08:25→21:41)
[2017-01-05] MEDS: levETIRAcetam 500 MG TAB PO SCH ×2 (08:25→21:41)
[2017-01-05] MEDS: ESCITALOPRAM OXALATE 10 MG TAB PO SCH (08:25)
[2017-01-05] MEDS: AMITRIPTYLINE HCL 25 MG TAB PO SCH ×2 (08:25→21:41)
[2017-01-05] MEDS: MULTIVITAMIN TAB PO SCH (08:25)
[2017-01-05] MEDS: LORazepam 0.5 MG TAB age > 65 yrs PO PRN (12:50)
[2017-01-05 19:29] VITALS: BP 108/71; PULSE 77; RESP 16; TEMP 98.5; O2SAT 97
[2017-01-05] MEDS: REMOVE OLD NICOTINE PATCH T-DERMAL SCH (21:00)
[2017-01-05] MEDS: ZOLPIDEM TARTRATE 10 MG TAB PO PRN (21:41)
[2017-01-06 06:34] VITALS: BP 103/66; PULSE 73; RESP 18; TEMP 97.7; O2SAT 97
[2017-01-06] MEDS: GABAPENTIN 400 MG CAP PO SCH ×4 (09:23→22:14)
[2017-01-06] MEDS: THIAMINE HCL 100 MG TAB PO SCH (09:23)
[2017-01-06] MEDS: levETIRAcetam 500 MG TAB PO SCH ×2 (09:23→21:00)
[2017-01-06] MEDS: ESCITALOPRAM OXALATE 10 MG TAB PO SCH (09:23)
[2017-01-06] MEDS: MULTIVITAMIN TAB PO SCH (09:23)
[2017-01-06] MEDS: AMITRIPTYLINE HCL 25 MG TAB PO SCH ×2 (09:23→22:13)
[2017-01-06] MEDS: LACTULOSE SYRUP 20 GM/30 ML CUP PO SCH (09:23)
[2017-01-06] MEDS: FERROUS SULFATE 325 MG (65 MG ELEMENTAL IRON) TAB PO SCH (09:23)
[2017-01-06] MEDS: NICOTINE 21 MG/24 HR PATCH T-DERMAL SCH (09:24)
[2017-01-06 18:40] VITALS: BP 104/74; PULSE 91; RESP 17; TEMP 98; O2SAT 95
--- NOTE | 2017-01-06 19:06 | EKG ---
Date Performed: 01/05/2017 Time Performed: 17:05:11 PTAGE: 66 years EKG: Sinus rhythm Poor R wave progression. ABNORMAL ECG PREVIOUS TRACING : 12/08/2015 22.25 DOCTOR: Mason Mae Interpretating Date/Time 01/06/2017 19:05:20
[2017-01-06] MEDS: REMOVE OLD NICOTINE PATCH T-DERMAL SCH (21:00)
[2017-01-06] MEDS: ZOLPIDEM TARTRATE 10 MG TAB PO PRN (22:13)
[2017-01-07 06:33] VITALS: BP 101/69; PULSE 77; RESP 18; TEMP 98; O2SAT 99
[2017-01-07] MEDS: THIAMINE HCL 100 MG TAB PO SCH (08:58)
[2017-01-07] MEDS: levETIRAcetam 500 MG TAB PO SCH ×2 (08:58→21:00)
[2017-01-07] MEDS: GABAPENTIN 400 MG CAP PO SCH ×4 (08:58→21:41)
[2017-01-07] MEDS: MULTIVITAMIN TAB PO SCH (08:59)
[2017-01-07] MEDS: REMOVE OLD PATCH T-DERMAL SCH (08:59)
[2017-01-07] MEDS: FERROUS SULFATE 325 MG (65 MG ELEMENTAL IRON) TAB PO SCH (08:59)
[2017-01-07] MEDS: NICOTINE 21 MG/24 HR PATCH T-DERMAL SCH (08:59)
[2017-01-07] MEDS: AMITRIPTYLINE HCL 25 MG TAB PO SCH ×2 (08:59→21:42)
[2017-01-07] MEDS: ESCITALOPRAM OXALATE 10 MG TAB PO SCH (08:59)
[2017-01-07] MEDS: LACTULOSE SYRUP 20 GM/30 ML CUP PO SCH (09:00)
[2017-01-07] MEDS: LORazepam 0.5 MG TAB age > 65 yrs PO PRN (11:36)
[2017-01-07] MEDS: ACETAMINOPHEN 325 MG TAB PO PRN (11:37)
[2017-01-07] MEDS: fentaNYL 50 MCG/HR PATCH TD SCH ×2 (14:00→17:00)
[2017-01-07 18:00] VITALS: BP 112/60; PULSE 94; RESP 18; TEMP 98.2; O2SAT 96
[2017-01-07] MEDS: REMOVE OLD NICOTINE PATCH T-DERMAL SCH (21:00)
[2017-01-07] MEDS: ZOLPIDEM TARTRATE 10 MG TAB PO PRN (21:42)
[2017-01-08 01:00] VITALS: BP 95/58; PULSE 67; RESP 18
[2017-01-08 02:00] VITALS: BP 86/54; PULSE 81; RESP 16; TEMP 98.1; O2SAT 98
--- NOTE | 2017-01-08 02:11 | RADRPT ---
EXAM DATE/TIME: 01/08/2017 01:48 [facility] COMPARISON: SHOULDER RIGHT COMPLETE (>2VWS), January 08, 2017, 1:50. INDICATIONS : Trauma, fall. MEDICAL HISTORY : None. SURGICAL HISTORY : Left shoulder surgery. ENCOUNTER: Initial ACUITY: 1 day PAIN SCORE: 5/10 LOCATION: Left shoulder. FINDINGS: Multiple view examination of the left shoulder demonstrates fixation of the left shoulder joint is se cured by 3 osseous screws. There is also bony bridging between the acromion and the fused shoulder. N o acute fracture. Visualized portions of the adjacent lung are clear. CONCLUSION: 1. Fixation of the left shoulder with osseous bridging and 3 osseous screws. Osseous bridging is also seen between the acromion and the deformed humeral head. 2. No acute fracture. Binh Urena MD on January 08, 2017 at 2:07 Board Certified Radiologist. This report was verified electronically.
--- NOTE | 2017-01-08 02:12 | RADRPT ---
EXAM DATE/TIME: 01/08/2017 01:50 [facility] COMPARISON: SHOULDER LEFT COMPLETE (>2VWS), January 08, 2017, 1:48. INDICATIONS : Trauma, fall. MEDICAL HISTORY : None. SURGICAL HISTORY : None. ENCOUNTER: Initial ACUITY: 1 day PAIN SCORE: 5/10 LOCATION: Right shoulder. FINDINGS: Multiple view examination of the right shoulder demonstrates no evidence of fracture or dislocation. The glenohumeral and acromioclavicular joints are maintained. There is normal range of motion betwe en internal and external rotation. Bony mineralization is normal. CONCLUSION: Negative exam. No acute fracture. Binh Urena MD on January 08, 2017 at 2:10 Board Certified Radiologist. This report was verified electronically.
--- NOTE | 2017-01-08 02:13 | RADRPT ---
EXAM DATE/TIME: 01/08/2017 01:52 [facility] COMPARISON: CT BRAIN W/O CONTRAST, December 08, 2015, 23:15. INDICATIONS : Trauma; fall. RADIATION DOSE: 56.35 CTDIvol (mGy) MEDICAL HISTORY : Non-responsive. SURGICAL HISTORY : Non-responsive. ENCOUNTER: Initial ACUITY: 1 day PAIN SCALE: Non-responsive LOCATION: cranial TECHNIQUE: Multiple contiguous axial images were obtained of the head. Using automated exposure control and adj ustment of the mA and/or kV according to patient size, radiation dose was kept as low as reasonably a chievable to obtain optimal diagnostic quality images. FINDINGS: CEREBRUM: The ventricles are normal for age. No evidence of midline shift, mass lesion, hemorrhage or acute in farction. No extra-axial fluid collections are seen. POSTERIOR FOSSA: The cerebellum and brainstem are intact. The 4th ventricle is midline. The cerebellopontine angle i s unremarkable. EXTRACRANIAL: The visualized portion of the orbits is intact. SKULL: The calvaria is intact. No evidence of skull fracture. CONCLUSION: Negative exam. No acute intracranial process, trauma or fracture. Binh Urena MD on January 08, 2017 at 2:11 Board Certified Radiologist. This report was verified electronically.
[2017-01-08 06:06] VITALS: BP 84/55; PULSE 86; RESP 18; TEMP 97.9; O2SAT 97
[2017-01-08] MEDS: ESCITALOPRAM OXALATE 10 MG TAB PO SCH (08:56)
[2017-01-08] MEDS: FERROUS SULFATE 325 MG (65 MG ELEMENTAL IRON) TAB PO SCH (08:56)
[2017-01-08] MEDS: GABAPENTIN 400 MG CAP PO SCH ×5 (08:56→21:00)
[2017-01-08] MEDS: AMITRIPTYLINE HCL 25 MG TAB PO SCH (08:56)
[2017-01-08] MEDS: ARIPiprazole 2 MG TAB PO SCH (08:56)
[2017-01-08] MEDS: NICOTINE 21 MG/24 HR PATCH T-DERMAL SCH (08:56)
[2017-01-08] MEDS: THIAMINE HCL 100 MG TAB PO SCH (08:56)
[2017-01-08] MEDS: LACTULOSE SYRUP 20 GM/30 ML CUP PO SCH (08:56)
[2017-01-08] MEDS: MULTIVITAMIN TAB PO SCH (08:56)
[2017-01-08] MEDS: levETIRAcetam 500 MG TAB PO SCH ×2 (08:57→21:00)
[2017-01-08 10:30] VITALS: BP 83/54; PULSE 87; RESP 16; TEMP 93; O2SAT 93
[2017-01-08] MEDS: ALUMINUM/MAGNESIUM/SIMETH 30 ML CUP PO PRN (15:29)
--- NOTE | 2017-01-08 17:15 | HHI.PR ---
Subjective Remarks pt denies dizziness or lightheadedness. no cp or abdomen pain no n/v or f/c. says usually 1 or at most 2 episodes diarrhea per day but not large bm's apparently fell last night. denies h/a. wants more fentanyl. Objective Vitals oriented heart reg lung cta abd s/nt ext no edema Vital Signs Date Time Temp Pulse Resp B/P Pulse Ox O2 Delivery O2 Flow Rate FiO2 01/08/17 10:30 93.0 87 16 83/54 93 01/08/17 06:06 97.9 86 18 84/55 97 01/08/17 02:00 98.1 81 16 86/54 98 01/08/17 01:00 67 18 95/58 01/07/17 18:00 98.2 94 18 112/60 96 A/P Problem List: (1) Hypotension Status: Acute Plan: Pt with hep c cirrhosis and chronic pain/narcotic dependence. Admitted to psych unit for depression and SI Pt with sbp's in 80s documented this AM. When I arrived his orthostatics were checked and sitting his sbp was 120s and standing 80s. denies dizziness upon standing. will check stat cbc and bmp will probably transfer to med/psych unit for ivf overnight and recheck on orthostatics. hold any bp meds (2) Major depression Status: Acute Plan: - Defer treatment to psychiatry service (3) Suicidal ideation Status: Acute Plan: - Defer treatment to psychiatry service (4) HTN (hypertension) Status: Chronic Plan: - see above. (5) COPD (chronic obstructive pulmonary disease) Status: Chronic Plan: - Patient has a long smoking history, but has stopped - Duo nebs every 6 hours when necessary (6) Cirrhosis Status: Chronic (7) Opiate dependence, continuous Status: Chronic (8) Seizure disorder Status: Chronic Problem Qualifiers (1) Major depression: (2) HTN (hypertension): Qualified Code: I10 - Essential hypertension (3) COPD (chronic obstructive pulmonary disease): Wander Way MD Jan 08, 2017 17:15
[2017-01-08 17:50] LABS: AUTOMATED NEUTROPHIL # 4.1 TH/MM3 (1.8-7.7); BASOPHIL % 0.3 % (0.0-2.0); EOSINOPHIL # 0.1 TH/MM3 (0-0.4); EOSINOPHIL % 1.1 % (0.0-4.0); HEMATOCRIT 39.2 % (39.0-51.0); LYMPHOCYTE # 1.5 TH/MM3 (1.0-4.8); MEAN CELL VOLUME 97.1 FL (80.0-100.0); MEAN CORPUSCULAR HEMOGLOBIN 33.1 PG (27.0-34.0); MEAN CORPUSCULAR HGB CONC 34.1 % (32.0-36.0); MONO % 10.6 % (0.0-8.0); PLATELET COUNT 86 TH/MM3 (150-450); RED BLOOD COUNT 4.04 MIL/MM3 (4.50-5.90); RED CELL DISTRIBUTION WIDTH 13.6 % (11.6-17.2); WHITE BLOOD COUNT 6.4 TH/MM3 (4.0-11.0)
[2017-01-08 17:56] LABS: HEMO FLAGS DIFF FINAL
[2017-01-08 18:01] LABS: BICARBONATE 27.3 MEQ/L (21.0-32.0); MAGNESIUM 2.2 MG/DL (1.5-2.5); POTASSIUM 3.7 MEQ/L (3.5-5.1)
[2017-01-08 18:28] VITALS: BP 81/54; PULSE 92; RESP 18; TEMP 98.3; O2SAT 93
[2017-01-08] MEDS ORDERED: SODIUM CHLOR 0.9% 1000 ML INJ 1,000 ML IV ONE (20:30)
[2017-01-08] MEDS: REMOVE OLD NICOTINE PATCH T-DERMAL SCH (21:00)
[2017-01-08] MEDS: LORazepam 0.5 MG TAB age > 65 yrs PO PRN (21:28)
[2017-01-08] MEDS: ACETAMINOPHEN 325 MG TAB PO PRN (21:28)
[2017-01-08] MEDS: ZOLPIDEM TARTRATE 10 MG TAB PO PRN (21:29)
[2017-01-09 01:36] LABS: BLOOD, URINE NEG (NEG); GLUCOSE,URINE NEG (NEG); KETONE, URINE NEG (NEG); NITRITE,URINE NEG (NEG); PH, URINE 6.5 (5.0-8.5); URINE COLOR YELLOW (YELLW/STRAW)
[2017-01-09 01:37] LABS: COMMENT (UR) CULT NOT INDICATED; CULTURE IF INDICATED CULT NOT INDICATED
[2017-01-09 07:13] VITALS: BP 74/51; PULSE 73; RESP 20; TEMP 94.5; O2SAT 93
[2017-01-09] MEDS: levETIRAcetam 500 MG TAB PO SCH ×2 (09:00→20:43)
[2017-01-09] MEDS: SODIUM CHLOR 0.9% 1000 ML INJ 1,000 ML IV SCH (09:45)
[2017-01-09] MEDS: NICOTINE 21 MG/24 HR PATCH T-DERMAL SCH (10:29)
[2017-01-09] MEDS: THIAMINE HCL 100 MG TAB PO SCH (10:30)
[2017-01-09] MEDS: FERROUS SULFATE 325 MG (65 MG ELEMENTAL IRON) TAB PO SCH (10:30)
[2017-01-09] MEDS: MULTIVITAMIN TAB PO SCH (10:30)
[2017-01-09] MEDS: GABAPENTIN 400 MG CAP PO SCH ×4 (10:30→20:42)
[2017-01-09] MEDS: LACTULOSE SYRUP 20 GM/30 ML CUP PO SCH (10:30)
[2017-01-09] MEDS: ARIPiprazole 2 MG TAB PO SCH (10:30)
[2017-01-09] MEDS: ESCITALOPRAM OXALATE 10 MG TAB PO SCH (10:31)
[2017-01-09] MEDS: ACETAMINOPHEN 325 MG TAB PO PRN ×2 (10:35→17:11)
[2017-01-09 10:54] VITALS: BP 134/81; PULSE 77; RESP 18; TEMP 97.2; O2SAT 96
--- NOTE | 2017-01-09 11:52 | HHI.PR ---
Subjective Remarks pt currently sitting on edge of bed. no distress denies any LH or dizziness. no cp or sob. tolerating food. no diarrhea. Objective Vitals heart reg lung cta abd s/nt ext no edema Vital Signs Date Time Temp Pulse Resp B/P Pulse Ox O2 Delivery O2 Flow Rate FiO2 01/09/17 10:54 97.2 77 18 134/81 96 01/09/17 07:13 94.5 73 20 74/51 93 01/08/17 18:28 98.3 92 18 81/54 93 Result Diagram: 01/08/17 1728 01/08/17 1724 A/P Problem List: (1) Hypotension Status: Acute Plan: Pt with hep c cirrhosis and chronic pain/narcotic dependence. Admitted to psych unit for depression and SI. Pt developed hypotension and orthostasis in psych unit. he was asymptomatic labs show mild dehydration. He has cut down on the amt of narcotic with lower fentanyl patch moved to med/psych unit this AM for ivf. His blood pressure on arrival was 120s per RN and now 130s. Recheck orthostatic vitals now. If normal then he is ok for d/c from med standpoint wean off elavil . discussed with dr Torres. (2) Major depression Status: Acute Plan: - Defer treatment to psychiatry service (3) Suicidal ideation Status: Acute Plan: - Defer treatment to psychiatry service (4) HTN (hypertension) Status: Chronic Plan: - see above. (5) COPD (chronic obstructive pulmonary disease) Status: Chronic Plan: - Patient has a long smoking history, but has stopped - Duo nebs every 6 hours when necessary (6) Cirrhosis Status: Chronic (7) Opiate dependence, continuous Status: Chronic (8) Seizure disorder Status: Chronic Problem Qualifiers (1) Major depression: (2) HTN (hypertension): Qualified Code: I10 - Essential hypertension (3) COPD (chronic obstructive pulmonary disease): Wander Way MD Jan 09, 2017 11:52
[2017-01-09 11:56] VITALS: BP_SYST 102; BP_SYST 117; BP_SYST 84; BP_DIAS 58; BP_DIAS 74; BP_DIAS 81
[2017-01-09] MEDS: LORazepam 0.5 MG TAB age > 65 yrs PO PRN (14:14)
[2017-01-09 15:49] VITALS: BP_SYST 111; BP_SYST 128; BP_SYST 89; BP_DIAS 59; BP_DIAS 71
[2017-01-09 17:54] VITALS: BP 111/71; PULSE 76; RESP 16; TEMP 97.6; O2SAT 96
[2017-01-09] MEDS: ZOLPIDEM TARTRATE 10 MG TAB PO PRN (20:42)
[2017-01-09] MEDS: AMITRIPTYLINE HCL 25 MG TAB PO SCH (20:43)
[2017-01-09] MEDS: REMOVE OLD NICOTINE PATCH T-DERMAL SCH (20:44)
[2017-01-10] MEDS: SODIUM CHLOR 0.9% 1000 ML INJ 1,000 ML IV SCH (00:49)
[2017-01-10 04:50] VITALS: BP_SYST 112; BP_SYST 116; BP_SYST 99; BP_DIAS 57; BP_DIAS 60
[2017-01-10 05:08] VITALS: BP 116/60; PULSE 76; RESP 17; TEMP 98; O2SAT 95
[2017-01-10 05:09] VITALS: BP_SYST 112; BP_SYST 99; BP_DIAS 57
[2017-01-10] MEDS: GABAPENTIN 400 MG CAP PO SCH ×4 (09:00→21:00)
[2017-01-10] MEDS: THIAMINE HCL 100 MG TAB PO SCH (09:00)
[2017-01-10] MEDS: FERROUS SULFATE 325 MG (65 MG ELEMENTAL IRON) TAB PO SCH (09:00)
[2017-01-10] MEDS: levETIRAcetam 500 MG TAB PO SCH ×2 (09:00→21:00)
[2017-01-10] MEDS: LACTULOSE SYRUP 20 GM/30 ML CUP PO SCH (09:00)
[2017-01-10] MEDS: ESCITALOPRAM OXALATE 10 MG TAB PO SCH (09:00)
[2017-01-10] MEDS: NICOTINE 21 MG/24 HR PATCH T-DERMAL SCH (09:00)
[2017-01-10] MEDS: REMOVE OLD PATCH T-DERMAL SCH (09:00)
[2017-01-10] MEDS: MULTIVITAMIN TAB PO SCH (09:00)
[2017-01-10] MEDS: ARIPiprazole 2 MG TAB PO SCH (09:00)
--- NOTE | 2017-01-10 09:01 | HHI.PR ---
Subjective Remarks ambulating. no dizziness Objective Vitals heart reg lung cta abd s/nt ext no edema Vital Signs Date Time Temp Pulse Resp B/P Pulse Ox O2 Delivery O2 Flow Rate FiO2 01/10/17 05:09 99/57 01/10/17 05:09 112/57 01/10/17 05:08 98.0 76 17 116/60 95 01/10/17 04:50 116/60 112/57 99/57 01/09/17 17:54 97.6 76 16 111/71 96 01/09/17 15:49 128/71 111/71 89/59 01/09/17 11:56 117/74 102/81 84/58 01/09/17 10:54 97.2 77 18 134/81 96 01/09/17 01/09/17 01/10/17 15:00 23:00 07:00 Intake Total 240 ml 1480 ml 1420 ml Balance 240 ml 1480 ml 1420 ml Intake Oral 240 ml 1480 ml 220 ml IV Total 1200 ml # Voids 1 2 Result Diagram: 01/08/17 1728 01/08/17 1724 A/P Problem List: (1) Hypotension Status: Acute Plan: Pt with hep c cirrhosis and chronic pain/narcotic dependence. Admitted to psych unit for depression and SI. Pt developed hypotension and orthostasis in psych unit. he was asymptomatic labs show mild dehydration. discussed with dr Torres and vish may also be playing a role. He has cut down on the amt of narcotic with lower fentanyl patch moved to med/psych for ivf. pt stable and improved ok to d/c home hold any home bp meds. wean off elavil (2) Major depression Status: Acute Plan: - Defer treatment to psychiatry service (3) Suicidal ideation Status: Acute Plan: - Defer treatment to psychiatry service (4) HTN (hypertension) Status: Chronic Plan: - see above. (5) COPD (chronic obstructive pulmonary disease) Status: Chronic Plan: - Patient has a long smoking history, but has stopped - Duo nebs every 6 hours when necessary (6) Cirrhosis Status: Chronic (7) Opiate dependence, continuous Status: Chronic (8) Seizure disorder Status: Chronic Problem Qualifiers (1) Major depression: (2) HTN (hypertension): Qualified Code: I10 - Essential hypertension (3) COPD (chronic obstructive pulmonary disease): Wander Way MD Jan 10, 2017 09:01
[2017-01-10] MEDS: fentaNYL 50 MCG/HR PATCH TD SCH (14:00)
[2017-01-10 15:56] VITALS: BP 132/85; PULSE 93; RESP 16; O2SAT 96
[2017-01-10] MEDS: AMITRIPTYLINE HCL 25 MG TAB PO SCH (21:00)
[2017-01-10] MEDS: ZOLPIDEM TARTRATE 10 MG TAB PO PRN (21:00)
[2017-01-10] MEDS: ALUMINUM/MAGNESIUM/SIMETH 30 ML CUP PO PRN (21:00)
[2017-01-10] MEDS: REMOVE OLD NICOTINE PATCH T-DERMAL SCH (21:00)
[2017-01-11 05:38] VITALS: BP 96/65; PULSE 81; RESP 18; TEMP 98.3; O2SAT 96
[2017-01-11] MEDS: GABAPENTIN 400 MG CAP PO SCH ×2 (09:00→13:00)
[2017-01-11] MEDS: MULTIVITAMIN TAB PO SCH (09:16)
[2017-01-11] MEDS: NICOTINE 21 MG/24 HR PATCH T-DERMAL SCH (09:16)
[2017-01-11] MEDS: ARIPiprazole 2 MG TAB PO SCH (09:17)
[2017-01-11] MEDS: FERROUS SULFATE 325 MG (65 MG ELEMENTAL IRON) TAB PO SCH (09:17)
[2017-01-11] MEDS: THIAMINE HCL 100 MG TAB PO SCH (09:17)
[2017-01-11] MEDS: levETIRAcetam 500 MG TAB PO SCH (09:17)
[2017-01-11] MEDS: ESCITALOPRAM OXALATE 10 MG TAB PO SCH (09:17)
[2017-01-11] MEDS: LACTULOSE SYRUP 20 GM/30 ML CUP PO SCH (09:17)
[2017-01-11] MEDS: ACETAMINOPHEN 325 MG TAB PO PRN (09:39)
[2017-01-11] MEDS ORDERED: NEUR400C PO (13:18)
[2017-01-11] MEDS ORDERED: FENT50T TD (13:18)
[2017-01-11] MEDS ORDERED: ESCI10TA PO (13:18)
[2017-01-11] MEDS ORDERED: ABIL2TAB2 PO (13:18)
[2017-01-11] MEDS ORDERED: LEVE500 PO (13:18)
[2017-01-11] MEDS ORDERED: IPRASOL NEB (13:18)
[2017-01-11] MEDS ORDERED: LACT10SO PO (13:18)
--- NOTE | 2017-01-11 21:37 | MD ---
cc: [facility]List ADMISSION DATE: 12/31/2016 DISCHARGE DATE: 01/11/2017 ADMISSION DIAGNOSES [place] I: Dysthymic disorder. Polysubstance abuse. Chronic alcohol abuse. 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 [place] III: Hypertension, chronic obstructive pulmonary disease, chronic back and left shoulder pain, status post surgery of left shoulder, history of seizure disorder, gastroesophageal reflux disease, anemia, hepatitis C, cirrhosis of liver, hyperlipidemia, osteoarthritis, questionable history of CVA without deficit. [place] IV: Severity of psychosocial stressors moderate i.e. multiple medical issues, chronic pain, chronic psychiatric illness. [place] V: Current GAF score 40 DISCHARGE DIAGNOSIS [place] I: Dysthymic disorder. Polysubstance abuse. Chronic alcohol abuse. 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 [place] III: Hypertension, chronic obstructive pulmonary disease, chronic back and left shoulder pain, status post surgery of left shoulder, history of seizure disorder, gastroesophageal reflux disease, anemia, hepatitis C, cirrhosis of liver, hyperlipidemia, osteoarthritis, questionable history of CVA without deficit. [place] IV: Severity of psychosocial stressors moderate i.e. multiple medical issues, chronic pain, chronic psychiatric illness. [place] V: Current GAF score 60. This 66-year-old white male was brought to the emergency room of this hospital voluntarily where the Chaudhary Act was initiated by the emergency room physician because of increasing depression and suicidal thoughts. Please refer to my initial evaluation for details. Lab workup - CBC with differential was done on different dates and on 01/08/2017 it was unremarkable. CMP was done on different dates. Her BUN on 01/08/2017 was somewhat elevated at 23, serum creatinine normal. Liver enzymes 11/06/25 were elevated i.e., AST 157, ALT 161, alkaline phosphatase 189 consistent with hepatitis C and cirrhosis of liver, lipase elevated at 72. Urine drug screen negative. Blood alcohol less than three. Routine urinalysis was done on 12/31 and 01/09/[address] scan of the hand was unremarkable. X-ray of the left shoulder showed fixation of left shoulder with osseous bridging s screws, no acute fracture. X-ray of the right shoulder was negative for any acute fracture. HOSPITAL COURSE When initially evaluated, Mr. Yuen looked somewhat depressed. Initially he stayed somewhat seclusive and withdrawn. He was initially detoxed successfully. To alleviate his depression, he was started on Lexapro. Upon admission, he was on Wellbutrin which was tapered off due to history of seizure disorder. Later during this admission, he developed partial hypotension and as such, amitriptyline was also tapered off. Later on Abilify was added which showed significant improvement in his mood, psychomotor activity, sleep and appetite. He became more interactive with staff and peers. Simultaneously, he was involved in individual psychotherapy primarily addressing issue related to alcohol/drug abuse, chronic medical problems and these stressors associated with it. He was quite receptive to the feedback and seemed to have gained some insight. He initially was recommended admission to [facility] drug rehab program to which he was somewhat ambivalent. At one point, he agreed to go there. However, preferred outpatient program only which was not available at that program. Instead he preferred outpatient substance abuse program through [facility] and this was arranged for him. For this hospital stay, he seemed focused on his pain and seemed to magnify this. Initially, he was reluctant to go back on a Duragesic patch but then changed his mind and wanted to be started on a smaller dose. Later he wanted to take oral opiates which on Dr. Way the medical psychotherapist on the case was in favor of in view of his long history of opiate abuse in the past. I attempted to obtain consult from Dr. Stubbs, his outpatient scene painter, but I was informed that she did not provide inpatient services. As such, he was encouraged to discuss this particular issue with her after discharge. During this hospital stay, he was followed medically by Dr. Montoya/Dr. Way. For a brief period, he was transferred to the med. psych unit because of a drop in his blood pressure. Yesterday signed right of release. It was discussed with Mr. Yuen and with the treatment team. He denied any suicidal or homicidal ideations. He did not exhibit any acute psychotic symptoms. As such, it was felt by the treatment team that he did not meet the Chaudhary Act criteria and was discharged home with recommendations to continue individual psychotherapy with Sheela Bean and psychiatric followup with Dr. Hall. In addition, he is recommended to follow up with Dr. Stubbs and his primary care physician for medical issues. He is being discharged on following medications: Abilify 2 mg one p.o. daily #10 one refill. Lexapro 20 mg one p.o. daily #10 one refill. Fentanyl patch 50 mcg per hour one patch q. 3 days #6. Neurontin 400 mg p.o. four times a day #28. Albuterol inhaler 1 ampule q. Six hours p.r.n. Lactulose ___ 10 grams per 15 mL, 30 mL p.o. daily 10 day supply. Keppra 500 mg p.o. b.i.d. 7 day supply. MD BETO Andino/ /7:54 PM /9:09 PM
== END 2017-01-11 15:05 | disposition home or self-care (01) | DRG 881 ==
LOC: PHED 12:29 → NEDA 18:47 → H260 19:46 → H4EA 01-09 08:45 → H260 01-10 16:37
PROVIDERS: ADMIT Psychiatry & Neurology Psychiatry; ATTEND Psychiatry & Neurology Psychiatry
DX: F34.1 Dysthymic disorder (principal); K74.69 Other cirrhosis of liver; R45.851 Suicidal ideations; F11.20 Opioid dependence, uncomplicated; R56.9 Unspecified convulsions; M86.612 Other chronic osteomyelitis, left shoulder; Z99.81 Dependence on supplemental oxygen; J44.9 Chronic obstructive pulmonary disease, unspecified; G89.29 Other chronic pain; K21.9 Gastro-esophageal reflux disease without esophagitis; I10 Essential (primary) hypertension; I69.398 Other sequelae of cerebral infarction; F60.89 Other specific personality disorders; E78.5 Hyperlipidemia, unspecified; G47.00 Insomnia, unspecified; D64.9 Anemia, unspecified; B18.2 Chronic viral hepatitis C; E86.0 Dehydration; I95.1 Orthostatic hypotension; F40.01 Agoraphobia with panic disorder; F10.20 Alcohol dependence, uncomplicated; Y90.0 Blood alcohol level of less than 20 mg/100 ml; Z87.891 Personal history of nicotine dependence
CPT/HCPCS: 70450; 73030; 80048; 80053; 80061; 80307; 80320; 81001; 83036; 83690; 83735; 85025; 93005; 99281; 99285; J7030

== ENCOUNTER 2017-06-03 02:12 | Emergency (ER) | payer MEDICARE ==
[~2017-06-03] VITALS: Ht 175.3 cm; Wt 74.8 kg
[~2017-06-03 02:12] MED LIST changes: +ABIL2TAB2 PO; -ALBU0.086 NEB; -AMLO5 PO; +BUPR300T PO; +ESCI10TA PO; +FENT50T TD; -IPRA0.02 NEB; +IPRASOL NEB; +LACT10SO PO; -LEVA500T PO; +LEVE500 PO; -LEXA10TA PO; +NEUR400C PO; -OMPR20CCR PO; -PRED20 PO; -RISP2TAB2 PO; +ZOLP10TA3 PO
[2017-06-03 02:20] VITALS: BP 122/72; PULSE 96; RESP 22; TEMP 98.6; O2SAT 87
--- NOTE | 2017-06-03 03:15 | PD ---
HPI Chief Complaint: Injury Time Seen by Provider: 03:11 Travel History International Travel<30 days: No Contact w/Intl Traveler<30days: No Traveled to known affect area: No History of Present Illness HPI The patient is a 67-year-old male that fell on his ribs 2-1/2 days ago. He hit his left side and complains of increasing pain in this area. He does smoke 2 packs a day. He denies any fever. PFSH Past Medical History Arthritis: No Asthma: No Autoimmune Disease: No Blood Disorders: No Anxiety: No Depression: Yes Cancer: Yes (MELANOMA RIGHT ARM) Cardiovascular Problems: No High Cholesterol: No Chemotherapy: No Cirrhosis: Yes COPD: No Cerebrovascular Accident: Yes (2001) Diabetes: No Diminished Hearing: No Endocrine: No Gastrointestinal Disorders: Yes (PEPTIC ULCER HX, GERD) GERD: No Genitourinary: No Hepatitis: Yes (C) Hiatal Hernia: No Hypertension: Yes Immune Disorder: No Implanted Vascular Access Dvce: Yes Musculoskeletal: No Neurologic: Yes Psychiatric: Yes (ANXIETY) Reproductive: No Respiratory: Yes Immunizations Current: Yes Migraines: No Myocardial Infarction: No Radiation Therapy: No Seizures: Yes (2001) Sleep Apnea: No Thyroid Disease: No Ulcer: Yes PNEUMOCCOCAL Vaccine (Year): 1 Past Surgical History Abdominal Surgery: No AICD: No Body Medical Devices: LEFT SHOULDER HARDWARE Cardiac Surgery: No Ear Surgery: No Endocrine Surgery: No Eye Surgery: No Genitourinary Surgery: No Gynecologic Surgery: No Joint Replacement: No Neurologic Surgery: No Oral Surgery: No Pacemaker: No Thoracic Surgery: No Other Surgery: Yes (R ARM/left shoulder) Social History Alcohol Use: Yes ("A LOT") Tobacco Use: Yes (2 PPD) Substance Use: No Allergies-Medications (Allergen,Severity, Reaction): Coded Allergies: *MDRO Multi-Drug Resistant Organism (Verified Adverse Reaction, Unknown, ) MDR-Streptococcus Pneumoniae blood 12/2015 Uncoded Allergies: "muscle relaxers" (Adverse Reaction, Unknown, stomach issues, 12/31/16) Reported Meds & Prescriptions Reported Meds & Active Scripts Active Percocet (Oxycodone-Acetaminophen) 5-325 mg Tab 1-2 Tab PO Q4H PRN Duragesic Patch 72 HR (Fentanyl) 50 Mcg/Hr Patch 1 Patch TD Q3D Lactulose Liq (Lactulose) 10 Gm/15 Ml Soln 30 Ml PO DAILY 10 Days Duoneb (Ipratropium-Albuterol Neb) 0.5-2.5 Mg/3 Ml Neb 1 Ampule NEB Q6HR NEB PRN Neurontin (Gabapentin) 400 Mg Cap 400 Mg PO QID Reported [Oxygen] 2 Ferrous Sulfate 325 Mg (65 Mg Iron) Tablet 325 Mg PO BIDPC Aripiprazole 2 Mg Tab 2 Mg PO DAILY Amlodipine (Amlodipine Besylate) 5 Mg Tab 5 Mg PO DAILY Amitriptyline (Amitriptyline HCl) 25 Mg Tab 25 Mg PO HS Risperidone 2 Mg Tab 2 Mg PO HS Review of Systems Except as stated in HPI: all other systems reviewed are Neg Physical Exam Narrative GENERAL: The patient is alert, oriented 3 in no respirator distress but does have significant pain on his left lateral ribs. His vital signs are normal. SKIN: Focused skin assessment warm/dry. HEAD: Atraumatic. Normocephalic. EYES: Pupils equal and round. No scleral icterus. No injection or drainage. ENT: No nasal bleeding or discharge. Mucous membranes pink and moist. NECK: Trachea midline. No JVD. CARDIOVASCULAR: Regular rate and rhythm. No murmur appreciated. RESPIRATORY: No accessory muscle use. Clear to auscultation. Breath sounds equal but diminished bilaterally. No flail is noted. GASTROINTESTINAL: Abdomen soft, non-tender, nondistended. Hepatic and splenic margins not palpable. MUSCULOSKELETAL: No obvious deformities. No clubbing. No cyanosis. No edema. NEUROLOGICAL: Awake and alert. No obvious cranial nerve deficits. Motor grossly within normal limits. Normal speech. PSYCHIATRIC: Appropriate mood and affect; insight and judgment normal. Data Data Last Documented VS Vital Signs Date Time Temp Pulse Resp B/P Pulse Ox O2 Delivery O2 Flow Rate FiO2 06/03/17 02:50 20 96 3 06/03/17 02:20 98.6 96 122/72 Orders Chest, Pa & Lat (06/03/17 03:11) Ribs, Uni (W/Exp Cxr-Min 3vw) (06/03/17 ) Oxycodone-Acetamin 7.5-325 Mg (Percocet (06/03/17 04:15) MDM Medical Decision Making Medical Screen Exam Complete: Yes Emergency Medical Condition: Yes Medical Record Reviewed: Yes Interpretation(s) The PA and lateral chest x-ray shows small bilateral pleural effusions and left shoulder surgery but no pneumothorax, mass or infiltrate. There are hairline fractures on the left eighth and ninth ribs on the left rib views. Differential Diagnosis Fractured ribs, pneumothorax, hemothorax, pulmonary contusion, chest wall contusion, flail chestunlikely Narrative Course The patient has tenderness that corresponds to the hairline fractures on the left eighth and ninth ribs. There is no pulmonary contusion, hemothorax, pneumothorax present. Procedures EKG Prior to Arrival: No EKG Not Completed: EKG Not Medically Necessary Diagnosis Primary Impression: Multiple fractures of ribs of left side Additional Impression: Contusion of left chest wall Additional Instructions: As we discussed, discontinue smoking, drink plenty liquids and fruit juices to avoid opioid-induced constipation. Follow-up with your primary care physician next week. Cough and deep breathe to clean your lungs. Scripts Oxycodone-Acetaminophen (Percocet)5-325 mg Tab1-2 Tab PO Q4H PRN (PAIN) #30 TAB Ref 0 Prov:Cosmo Jasmine MD 06/03/17 Disposition: 01 DISCHARGE HOME Condition: Stable Cosmo Jasmine MD Jun 03, 2017 03:15
[2017-06-03] MEDS ORDERED: AMLO5TAB2 PO (03:25)
[2017-06-03] MEDS ORDERED: FERR325T8 PO (03:25)
[2017-06-03] MEDS ORDERED: OXYGEN (03:25)
[2017-06-03] MEDS ORDERED: RISP2TAB2 PO (03:25)
[2017-06-03] MEDS ORDERED: AMIT25TA9 PO (03:25)
[2017-06-03] MEDS ORDERED: ARIP1TAB16 PO (03:25)
[2017-06-03] MEDS ORDERED: oxyCODONE/ACETAMINOPHEN 7.5 MG/325 MG TAB PO ONE (04:15)
[2017-06-03] MEDS ORDERED: PERC5TAB12 PO (04:37)
--- NOTE | 2017-06-03 04:37 | RADRPT ---
EXAM DATE/TIME: 06/03/2017 03:19 [facility] COMPARISON: CHEST PA & LAT, December 13, 2015, 6:38. INDICATIONS : Left lateral rib pain. MEDICAL HISTORY : Cirrhosis. Hepatitis C. Hypertension. Seizures. Stroke. Melanoma. COPD. SURGICAL HISTORY : Shoulder. ENCOUNTER: Initial ACUITY: 2 days PAIN SCORE: 8/10 LOCATION: Left lateral ribs FINDINGS: PA and lateral views of the chest demonstrate the lungs to be symmetrically aerated without evidence of mass, or infiltrate . There are small bilateral pleural effusions right greater the left The card iomediastinal contours are unremarkable. Osseous structures are intact. CONCLUSION: Small bilateral pleural effusions. Left shoulder surgery Kranthi Bundy MD on June 03, 2017 at 4:34 Board Certified Radiologist. This report was verified electronically.
--- NOTE | 2017-06-03 04:41 | RADRPT ---
EXAM DATE/TIME: 06/03/2017 03:19 [facility] COMPARISON: No previous studies available for comparison. INDICATIONS : Rib pain. MEDICAL HISTORY : Cirrhosis. Hepatitis C. Hypertension. Seizures. Stroke. Melanoma. COPD. SURGICAL HISTORY : Shoulder. ENCOUNTER: Initial ACUITY: 2 days PAIN SCORE: 8/10 LOCATION: Left lateral ribs FINDINGS: Multiple views of the left ribs were performed. There is a subtle step off involving the left eighth and ninth posterior lateral ribs could be tiny hairline fractures. Chronic deformity left third rib. Previous glenohumeral fusion surgery. No destructive lesions or areas of periosteal thickening are s een. Expiratory view of the chest is negative for pneumothorax. The mediastinal structures are midl ine. CONCLUSION: Possible hairline fracture left eighth and ninth ribs. Kranthi Bundy MD on June 03, 2017 at 4:38 Board Certified Radiologist. This report was verified electronically.
[2017-06-03 05:15] VITALS: BP 120/79
== END 2017-06-03 05:17 | disposition home or self-care (01) ==
LOC: PHED 02:12
DX: S22.42XA Multiple fractures of ribs, left side, initial encounter for closed fracture (principal); F17.210 Nicotine dependence, cigarettes, uncomplicated; I10 Essential (primary) hypertension; W19.XXXA Unspecified fall, initial encounter
CPT/HCPCS: 71020; 71101; 99283

== ENCOUNTER → 2017-10-31 | Outpatient (CLI) | payer MEDICARE ==
[~2017-10-31] MED LIST changes: -ABIL2TAB2 PO; -AMIT25 PO; +AMIT25TA9 PO; +AMLO5TAB2 PO; +ARIP1TAB16 PO; -BUPR300T PO; -ESCI10TA PO; -FENT100D TD; -FERR324T4 PO; +FERR325T18 PO; -GABA400C5 PO; -LACT20SO4 PO; -LEVE500 PO; -LEVE500T10 PO; +OXYGEN; +PERC5TAB12 PO; +RISP2TAB2 PO; -VITA500S3 PO; -Z.0.OXYGEN INH; -ZOLP10TA3 PO
== END ==
LOC: CLAB 07:51
PROVIDERS: ATTEND Specialist
DX: B18.2 Chronic viral hepatitis C (principal); E44.0 Moderate protein-calorie malnutrition; L57.0 Actinic keratosis; K59.03 Drug induced constipation; K74.69 Other cirrhosis of liver; I10 Essential (primary) hypertension; R74.8 Abnormal levels of other serum enzymes; R94.5 Abnormal results of liver function studies; F17.200 Nicotine dependence, unspecified, uncomplicated; Z13.21 Encounter for screening for nutritional disorder; Z13.220 Encounter for screening for lipoid disorders; Z28.3 Underimmunization status; Z28.20 Immunization not carried out because of patient decision for unspecified reason
CPT/HCPCS: 36415; 82140

== ENCOUNTER → 2017-11-06 | Day surgery (SDC) | payer MEDICARE ==
[~2017-11-06] VITALS: Ht 177.8 cm; Wt 75.0 kg
[~2017-11-06] MED LIST changes: +CHLORHEXIDINE GLUCONATE 2 % 1 PACK (2 CLOTHS) TOPICAL PRN; +KETAMINE HCL 500 MG/10 ML VIAL ONE; +LACTATED RINGER'S 1000 ML IV PRN; +LIDOCAINE 1%/EPINEPHrine 1:100,000 SOLN 30 ML VIAL ONE; +METOPROLOL TARTRATE 25 MG TAB PO PRN; +POVIDONE IODINE 5% (ANTISEPSIS KIT) 4 APPLICATIONS EACH NARE PRN; +SODIUM BICARBONATE 8.4% INJ 50 ML ONE; +SODIUM CHLORID 0.9% 500 ML IV PRN; +ceFAZolin 2 GM PREMIX 50 ML IV SCH
[2017-11-06 09:50] VITALS: TEMP 97.1
[2017-11-06 10:35] VITALS: BP 115/85; PULSE 83; RESP 16; O2SAT 92
--- NOTE | 2017-11-06 11:05 | MP ---
cc: DAVION AMARO M.D. DATE OF SURGERY 11/06/2017 PREOPERATIVE DIAGNOSES 1. Squamous cell carcinoma left cheek a 3 x 2 cm area excision. 2. Squamous cell carcinoma nose 2 x 2 cm area. 3. Squamous cell carcinoma right side upper lip two confluent areas total 2.5 x 1.[address] Amaro ANESTHESIA General SURGERY 1. Squamous cell carcinoma left cheek excision 3 X 2. 1. Squamous cell carcinoma nose tip 2 x 2 2. Right upper lip squamous cell carcinoma 2.5 x 1.5, frozen section on all and full-thickness skin graft from the right neck to all. INDICATIONS This is a 67-year-old white male with biopsy-proven squamous cell carcinomas in multiple areas of the face. He has several baseline medical problems including low platelet count, cirrhosis of the liver, and HEP-C etc. He is being taken to the operating room for excision, frozen section of the active squamous cell carcinoma areas and reconstruction with a combination of either graft or local advancement flap was planned. Ultimately, only a skin graft was needed. The patient understands that there may be healing issues with the graft and further reconstruction or open wound treatment may be required. He also understands the possibility of bleeding, infection and general risks and complications that go with surgery and anesthesia and he is willing to go ahead with the surgery. PROCEDURE The patient was brought to the operating room, was placed supine on the operating room table. He was started on IV sedation. The prep and drape was done. Preoperative markings were reinforced. The time-out was called and completed. All areas were injected with mixture of lidocaine with epi and sodium bicarb. All the specimens excised down to the subcutaneous tissue, suture marked superior and sent for frozen section. Hemostasis was completed with low power Bovie on the open vessels only. The rest of the area was compressed to allow hemostasis. An oversized graft was harvested from the left neck full-thickness along with baseline. The donor site was closed with 3-0 Vicryl and 4-0 Vicryl internal sutures and Dermabond. The skin graft was applied to all the areas and the frozen section report received in the meantime indicated clear margins on all three specimens. All the areas were cleaned and dried. A sterile dressing was applied. The one on the lip was also dressed with a [id number] bolster suture to stabilize the graft back against the deep muscle. The patient remained stable. Intraoperative blood loss less than 20 cc. No complications. MD ERIC Hill/KEE /9:36 AM /10:35 AM
== END | disposition home or self-care (01) ==
LOC: PHSDC 06:12
PROVIDERS: ATTEND Plastic Surgery
DX: C44.329 Squamous cell carcinoma of skin of other parts of face (principal); C44.02 Squamous cell carcinoma of skin of lip; K74.60 Unspecified cirrhosis of liver
CPT/HCPCS: 00300; 11643; 15240; 15260; 88305; 88331; J0690; J7120

== ENCOUNTER → 2017-12-24 | Outpatient (CLI) | payer MEDICARE ==
[~2017-12-24] MED LIST changes: -CHLORHEXIDINE GLUCONATE 2 % 1 PACK (2 CLOTHS) TOPICAL PRN; -IPRASOL NEB; -KETAMINE HCL 500 MG/10 ML VIAL ONE; -LACTATED RINGER'S 1000 ML IV PRN; -LIDOCAINE 1%/EPINEPHrine 1:100,000 SOLN 30 ML VIAL ONE; -METOPROLOL TARTRATE 25 MG TAB PO PRN; -PERC5TAB12 PO; -POVIDONE IODINE 5% (ANTISEPSIS KIT) 4 APPLICATIONS EACH NARE PRN; -SODIUM BICARBONATE 8.4% INJ 50 ML ONE; -SODIUM CHLORID 0.9% 500 ML IV PRN; -ceFAZolin 2 GM PREMIX 50 ML IV SCH
== END ==
LOC: CLAB 09:32
PROVIDERS: ATTEND Specialist
DX: B18.2 Chronic viral hepatitis C (principal); R74.8 Abnormal levels of other serum enzymes; R94.5 Abnormal results of liver function studies; I10 Essential (primary) hypertension; K74.69 Other cirrhosis of liver; R01.1 Cardiac murmur, unspecified; K59.03 Drug induced constipation; L57.0 Actinic keratosis; E44.0 Moderate protein-calorie malnutrition; J43.9 Emphysema, unspecified; C44.311 Basal cell carcinoma of skin of nose; F17.200 Nicotine dependence, unspecified, uncomplicated
CPT/HCPCS: 36415; 82140

== ENCOUNTER 2018-01-31 13:29 | Inpatient (IN) | payer MEDICARE ==
[~2018-01-31] VITALS: Ht 172.7 cm; Wt 59.8 kg
--- NOTE | 2018-01-31 13:44 | PD ---
HPI Chief Complaint: ams Time Seen by Provider: 13:43 Travel History International Travel<30 days: No Contact w/Intl Traveler<30days: No Traveled to known affect area: No History of Present Illness HPI 67-year-old male with history of hepatitis C, CVA, seizure disorder, CAD, COPD presents emergency department for evaluation of altered mental status. Patient was last assumed normal over last weekend, 5 days ago when he spoke to his son on the phone. His ex- stopped by to check on him today and he was not making sense, so she contacted 911. When [facility] arrived, they did find the patient with four fentanyl patches on his body. Patient provides limited to no history. Ex- does not provide any as well except for the patient is a DNR. PFSH Past Medical History Arthritis: No Asthma: No Autoimmune Disease: No Blood Disorders: No Anxiety: No Depression: Yes Cancer: Yes (MELANOMA RIGHT ARM) Cardiovascular Problems: Yes (AORTIC ATHEROSCLEROSIS &REGURG;LVH;MITRAL REGURG) High Cholesterol: No Chemotherapy: No Cirrhosis: Yes COPD: Yes Cerebrovascular Accident: Yes (2001) Diabetes: No Diminished Hearing: No Endocrine: No GERD: No Genitourinary: No Hepatitis: Yes (C) Hiatal Hernia: No Hypertension: Yes Immune Disorder: No Implanted Vascular Access Dvce: Yes Musculoskeletal: Yes (FX RIGHT PUBIC RAMUS;LEFT SHOULDER ARTHROSIS) Neurologic: Yes (CVA;SEIZURE DISORDER) Psychiatric: Yes (ANXIETY;BIPOLAR;DEPRESSION) Reproductive: No Respiratory: Yes (BRONCHITIS) Immunizations Current: Yes Migraines: No Myocardial Infarction: No Radiation Therapy: No Seizures: Yes (2001) Sleep Apnea: No Thyroid Disease: No Ulcer: Yes PNEUMOCCOCAL Vaccine (Year): 1 Past Surgical History Abdominal Surgery: Yes (LIVER BX) AICD: No Body Medical Devices: LEFT SHOULDER HARDWARE Cardiac Surgery: No Ear Surgery: No Endocrine Surgery: No Eye Surgery: No Genitourinary Surgery: No Gynecologic Surgery: No Joint Replacement: No Neurologic Surgery: No Oral Surgery: No Pacemaker: No Thoracic Surgery: No Other Surgery: Yes (LEFT SHOULDER) Social History Alcohol Use: Yes ("A LOT") Tobacco Use: Yes (2 PPD) Substance Use: Yes (OPIOD DEPENDENCE) Allergies-Medications (Allergen,Severity, Reaction): Coded Allergies: nabumetone (Verified Allergy, Severe, Ulcers, 11/06/17) *MDRO Multi-Drug Resistant Organism (Verified Adverse Reaction, Unknown, ) MDR-Streptococcus Pneumoniae blood 12/2015 Uncoded Allergies: "muscle relaxers" (Adverse Reaction, Unknown, stomach issues, 12/31/16) Reported Meds & Prescriptions Reported Meds & Active Scripts Active Duragesic Patch 72 HR (Fentanyl) 50 Mcg/Hr Patch 1 Patch TD Q3D Lactulose Liq (Lactulose) 10 Gm/15 Ml Soln 30 Ml PO DAILY 10 Days Neurontin (Gabapentin) 400 Mg Cap 400 Mg PO QID Reported [Oxygen] 2 Ferrous Sulfate 325 Mg (65 Mg Iron) Tablet 325 Mg PO BIDPC Aripiprazole 2 Mg Tab 2 Mg PO DAILY Amlodipine (Amlodipine Besylate) 5 Mg Tab 5 Mg PO DAILY Amitriptyline (Amitriptyline HCl) 25 Mg Tab 25 Mg PO HS Risperidone 2 Mg Tab 2 Mg PO HS Review of Systems Except as stated in HPI: all other systems reviewed are Neg Physical Exam Narrative GENERAL: Thin male patient, lying in bed, in no acute distress. SKIN: Focused skin assessment warm/dry. HEAD: Abrasion to the left forehead.. Normocephalic. EYES: Pupils equal and round. No scleral icterus. No injection or drainage. ENT: No nasal bleeding or discharge. Mucous membranes pink and moist. NECK: Trachea midline. No JVD. CARDIOVASCULAR: Tachycardic rate and rhythm. RESPIRATORY: No accessory muscle use. Clear to auscultation. Breath sounds equal bilaterally. GASTROINTESTINAL: Abdomen soft, non-tender, nondistended. Hepatic and splenic margins not palpable. MUSCULOSKELETAL: No obvious deformities. No clubbing. No cyanosis. No edema. NEUROLOGICAL: Awake. Unable to assess cranial nerves. Patient will move upper extremities to command. Data Data Last Documented VS Vital Signs Date Time Temp Pulse Resp B/P (MAP) Pulse Ox O2 Delivery O2 Flow Rate FiO2 01/31/18 15:32 103 18 123/81 (95) 95 Room Air 01/31/18 13:50 98.9 Orders Orders Electrocardiogram (01/31/18 ) Complete Blood Count With Diff (01/31/18 13:53) Comprehensive Metabolic Panel (01/31/18 13:53) Prothrombin Time / Inr (Pt) (01/31/18 13:53) Act Partial Throm Time (Ptt) (01/31/18 13:53) Lactic Acid Sepsis Protocol (01/31/18 13:53) Ckmb (Isoenzyme) Profile (01/31/18 13:53) Troponin I (01/31/18 13:53) Urinalysis - C+S If Indicated (01/31/18 13:53) Blood Culture (01/31/18 13:53) Chest, Single Ap (01/31/18 13:53) Blood Glucose (01/31/18 13:53) Ecg Monitoring (01/31/18 13:53) Iv Access Insert/Monitor (01/31/18 13:53) Cath For Specimen (01/31/18 13:53) Oximetry (01/31/18 13:53) Oxygen Administration (01/31/18 13:53) Ct Brain W/O Iv Contrast(Rout) (01/31/18 13:53) Sodium Chlor 0.9% 1000 Ml Inj (Ns 1000 M (01/31/18 13:53) Sodium Chlor 0.9% 1000 Ml Inj (Ns 1000 M (01/31/18 13:53) Ammonia (01/31/18 13:53) Vancomycin Inj (Vancomycin Inj) (01/31/18 15:15) Piperacil-Tazo 3.375 Gm Premix (Zosyn 3. (01/31/18 15:15) CKMB (01/31/18 14:05) CKMB% (01/31/18 14:05) Admit Order (Ed Use Only) (01/31/18 16:29) Labs Laboratory Tests Test 01/31/18 14:05 01/31/18 15:10 White Blood Count 14.8 TH/MM3 Red Blood Count 3.74 MIL/MM3 Hemoglobin 12.7 GM/DL Hematocrit 37.4 % Mean Corpuscular Volume 100.1 FL Mean Corpuscular Hemoglobin 34.0 PG Mean Corpuscular Hemoglobin Concent 33.9 % Red Cell Distribution Width 14.6 % Platelet Count 158 TH/MM3 Mean Platelet Volume 8.4 FL Neutrophils (%) (Auto) 78.2 % Lymphocytes (%) (Auto) 13.6 % Monocytes (%) (Auto) 8.1 % Eosinophils (%) (Auto) 0.0 % Basophils (%) (Auto) 0.1 % Neutrophils # (Auto) 11.6 TH/MM3 Lymphocytes # (Auto) 2.0 TH/MM3 Monocytes # (Auto) 1.2 TH/MM3 Eosinophils # (Auto) 0.0 TH/MM3 Basophils # (Auto) 0.0 TH/MM3 CBC Comment DIFF FINAL Differential Comment Prothrombin Time 13.3 SEC Prothromb Time International Ratio 1.3 RATIO Activated Partial Thromboplast Time 26.1 SEC Blood Urea Nitrogen 31 MG/DL Creatinine 0.87 MG/DL Random Glucose 123 MG/DL Total Protein 8.7 GM/DL Albumin 3.4 GM/DL Calcium Level 9.2 MG/DL Alkaline Phosphatase 100 U/L Aspartate Amino Transf (AST/SGOT) 102 U/L Alanine Aminotransferase (ALT/SGPT) 39 U/L Total Bilirubin 0.6 MG/DL Sodium Level 140 MEQ/L Potassium Level 5.0 MEQ/L Chloride Level 108 MEQ/L Carbon Dioxide Level 24.0 MEQ/L Anion Gap 8 MEQ/L Estimat Glomerular Filtration Rate 88 ML/MIN Lactic Acid Level 2.8 mmol/L Ammonia 52 MCMOL/L Total Creatine Kinase 1300 U/L Creatine Kinase MB 9.2 NG/ML Creatine Kinase MB % 0.7 % Troponin I 0.13 NG/ML MDM Medical Decision Making Medical Screen Exam Complete: Yes Emergency Medical Condition: Yes Medical Record Reviewed: Yes Differential Diagnosis ICH versus hepatic encephalopathy versus electrolyte abnormality versus sepsis versus opiate overdose Narrative Course 67-year-old male presents emergency department for evaluation of altered mental status. Patient provides minimal help with his history. He answers me "no" when asked if he is in pain. He appears dry. His lips are crusted and his skin is tenting. Laboratory Tests Test 01/31/18 14:05 01/31/18 15:10 White Blood Count 14.8 TH/MM3 Red Blood Count 3.74 MIL/MM3 Hemoglobin 12.7 GM/DL Hematocrit 37.4 % Mean Corpuscular Volume 100.1 FL Mean Corpuscular Hemoglobin 34.0 PG Mean Corpuscular Hemoglobin Concent 33.9 % Red Cell Distribution Width 14.6 % Platelet Count 158 TH/MM3 Mean Platelet Volume 8.4 FL Neutrophils (%) (Auto) 78.2 % Lymphocytes (%) (Auto) 13.6 % Monocytes (%) (Auto) 8.1 % Eosinophils (%) (Auto) 0.0 % Basophils (%) (Auto) 0.1 % Neutrophils # (Auto) 11.6 TH/MM3 Lymphocytes # (Auto) 2.0 TH/MM3 Monocytes # (Auto) 1.2 TH/MM3 Eosinophils # (Auto) 0.0 TH/MM3 Basophils # (Auto) 0.0 TH/MM3 CBC Comment DIFF FINAL Differential Comment Prothrombin Time 13.3 SEC Prothromb Time International Ratio 1.3 RATIO Activated Partial Thromboplast Time 26.1 SEC Blood Urea Nitrogen 31 MG/DL Creatinine 0.87 MG/DL Random Glucose 123 MG/DL Total Protein 8.7 GM/DL Albumin 3.4 GM/DL Calcium Level 9.2 MG/DL Alkaline Phosphatase 100 U/L Aspartate Amino Transf (AST/SGOT) 102 U/L Alanine Aminotransferase (ALT/SGPT) 39 U/L Total Bilirubin 0.6 MG/DL Sodium Level 140 MEQ/L Potassium Level 5.0 MEQ/L Chloride Level 108 MEQ/L Carbon Dioxide Level 24.0 MEQ/L Anion Gap 8 MEQ/L Estimat Glomerular Filtration Rate 88 ML/MIN Lactic Acid Level 2.8 mmol/L Ammonia 52 MCMOL/L Total Creatine Kinase 1300 U/L Creatine Kinase MB 9.2 NG/ML Creatine Kinase MB % 0.7 % Troponin I 0.13 NG/ML Lab work has been reviewed by myself and my attending. Patient is given IV normal saline fluid. I have discussed the patient with Dr. Montoya, [facility] marketing information analyst. Patient will be admitted inpatient for further evaluation and hydration. Diagnosis Primary Impression: Altered mental status Qualified Codes: R41.82 - Altered mental status, unspecified Additional Impressions: Rhabdomyolysis Qualified Codes: M62.82 - Rhabdomyolysis Opiate misuse Admitting Information Admitting Physician Requests: Admit Condition: Stable Rose Mary Putnam HAFSA Jan 31, 2018 13:44
[2018-01-31 13:50] VITALS: BP 123/81; PULSE 100; RESP 16; TEMP 98.9; O2SAT 95
[2018-01-31] MEDS ORDERED: SODIUM CHLOR 0.9% 1000 ML INJ 1,000 ML IV ONE (13:53)
[2018-01-31] MEDS ORDERED: SODIUM CHLOR 0.9% 1000 ML INJ 800 ML IV ONE (13:53)
--- NOTE | 2018-01-31 14:27 | RADRPT ---
EXAM DATE/TIME: 01/31/2018 14:18 [facility] COMPARISON: CT BRAIN W/O CONTRAST, January 08, 2017, 1:52. INDICATIONS : Altered mental status RADIATION DOSE: 38.92 CTDIvol (mGy) MEDICAL HISTORY : Seizures. Hypertension. Hepatitis C. SURGICAL HISTORY : None. ENCOUNTER: Initial ACUITY: 1 day PAIN SCALE: Non-responsive LOCATION: cranial TECHNIQUE: Multiple contiguous axial images were obtained of the head. Using automated exposure control and adj ustment of the mA and/or kV according to patient size, radiation dose was kept as low as reasonably a chievable to obtain optimal diagnostic quality images. DICOM format image data is available electro nically for review and comparison. FINDINGS: CEREBRUM: The ventricles are normal for age. No evidence of midline shift, mass lesion, hemorrhage or acute in farction. No extra-axial fluid collections are seen. POSTERIOR FOSSA: The cerebellum and brainstem are intact. The 4th ventricle is midline. The cerebellopontine angle i s unremarkable. EXTRACRANIAL: The visualized portion of the orbits is intact. SKULL: The calvaria is intact. No evidence of skull fracture. CONCLUSION: Normal examination for a patient of this age. No significant change has occurred. Raman Hanks MD on January 31, 2018 at 14:25 Board Certified Radiologist. This report was verified electronically.
--- NOTE | 2018-01-31 14:27 | RADRPT ---
EXAM DATE/TIME: 01/31/2018 14:01 [facility] COMPARISON: CHEST PA & LAT, June 03, 2017, 3:19. CHEST SINGLE AP, December 09, 2015, 11:47. INDICATIONS : Weakness. Altered mental status. MEDICAL HISTORY : Cirrhosis. Hepatitis C. Hypertension. Seizures. Stroke. Melanoma. COPD. SURGICAL HISTORY : Left shoulder. ENCOUNTER: Initial ACUITY: 1 day PAIN SCORE: Non-responsive. LOCATION: Bilateral chest FINDINGS: A single view of the chest demonstrates the lungs to be symmetrically aerated without evidence of mas s, infiltrate or effusion. The cardiomediastinal contours are unremarkable. Osseous structures are intact and stable. No significant changes compared to the prior study. CONCLUSION: No acute disease. Raman Hanks MD on January 31, 2018 at 14:20 Board Certified Radiologist. This report was verified electronically.
[2018-01-31 14:36] LABS: AUTOMATED NEUTROPHIL # 11.6 TH/MM3 (1.8-7.7); BASOPHIL % 0.1 % (0.0-2.0); HEMATOCRIT 37.4 % (39.0-51.0); HEMOGLOBIN 12.7 GM/DL (13.0-17.0); LYMPH % 13.6 % (9.0-44.0); MEAN CELL VOLUME 100.1 FL (80.0-100.0); MEAN CORPUSCULAR HGB CONC 33.9 % (32.0-36.0); MEAN PLATELET VOLUME 8.4 FL (7.0-11.0); MONO % 8.1 % (0.0-8.0); MONOCYTE # 1.2 TH/MM3 (0-0.9); NEUT % 78.2 % (16.0-70.0); PLATELET COUNT 158 TH/MM3 (150-450); RED BLOOD COUNT 3.74 MIL/MM3 (4.50-5.90); RED CELL DISTRIBUTION WIDTH 14.6 % (11.6-17.2); WHITE BLOOD COUNT 14.8 TH/MM3 (4.0-11.0)
[2018-01-31 14:45] LABS: INTERNATIONAL NORMALIZED RATIO 1.3 RATIO; PROTHROMBIN TIME - PATIENT 13.3 SEC (9.8-11.6)
[2018-01-31 15:03] LABS: LACTIC ACID SEPSIS PROTOCOL 2.8 mmol/L (0.4-2.0)
[2018-01-31] MEDS ORDERED: VANCOMYCIN INJ 1,000 MG in SODIUM CHLOR 0.9% 250 ML INJ 250 ML IV ONE (15:15)
[2018-01-31] MEDS ORDERED: PIPERACIL-TAZO 3.375 GM PREMIX 50 ML IV ONE (15:15)
[2018-01-31 15:16] LABS: ALBUMIN 3.4 GM/DL (3.4-5.0); ALKALINE PHOSPHATASE 100 U/L (45-117); ALT (GPT) 39 U/L (12-78); AST (GOT) 102 U/L (15-37); BLOOD UREA NITROGEN 31 MG/DL (7-18); CALCIUM 9.2 MG/DL (8.5-10.1); CHLORIDE 108 MEQ/L (98-107); CREATININE 0.87 MG/DL (0.60-1.30); GLOMERULAR FILTRATION RATE 88 ML/MIN (>89); GLUCOSE,RANDOM 123 MG/DL (74-106); SODIUM (NA) 140 MEQ/L (136-145); TOTAL BILIRUBIN ADULT 0.6 MG/DL (0.2-1.0); TOTAL PROTEIN 8.7 GM/DL (6.4-8.2); TROPONIN I 0.13 NG/ML (0.02-0.05)
[2018-01-31 15:32] VITALS: BP 123/81; PULSE 103; RESP 18; O2SAT 95
[2018-01-31] MEDS ORDERED: ACETAMINOPHEN 325 MG TAB PO PRN (16:30)
[2018-01-31] MEDS ORDERED: ONDANSETRON HCL 4 MG/2 ML VIAL IVP PRN (16:30)
[2018-01-31] MEDS ORDERED: MAGNESIUM HYDROXIDE SUSP 30 ML CUP PO PRN (16:30)
[2018-01-31] MEDS ORDERED: SODIUM CHLORIDE 0.9% FLUSH 10 ML FLUSH IV FLUSH PRN (16:30)
[2018-01-31] MEDS ORDERED: NALOXONE HCL 0.4 MG/ML AMP IV PUSH PRN (16:30)
[2018-01-31 16:36] LABS: BILIRUBIN, URINE NEG (NEG); BLOOD, URINE NEG (NEG); GLUCOSE,URINE NEG (NEG); KETONE, URINE NEG (NEG); NITRITE,URINE NEG (NEG); PH, URINE 5.5 (5.0-8.5); URINE COLOR YELLOW (YELLW/STRAW); URINE LEUKOCYTE ESTERASE NEG (NEG)
--- NOTE | 2018-01-31 16:42 | PD ---
Physical Exam Narrative GENERAL: 67-year-old male with resting tremor to his hands noted SKIN: Focused skin assessment warm/dry. HEAD: Atraumatic. Normocephalic. EYES: Pupils equal and round. No scleral icterus. No injection or drainage. ENT: No nasal bleeding or discharge. Mucous membranes pink and moist. NECK: Trachea midline. CARDIOVASCULAR: Regular rate and rhythm. RESPIRATORY: No accessory muscle use. No increased effort MUSCULOSKELETAL: No obvious deformities. No clubbing. No cyanosis. NEUROLOGICAL: Awake. moves all extremities. Normal speech. Data Data Last Documented VS Vital Signs Date Time Temp Pulse Resp B/P (MAP) Pulse Ox O2 Delivery O2 Flow Rate FiO2 01/31/18 15:32 103 18 123/81 (95) 95 Room Air 01/31/18 13:50 98.9 Orders Orders Electrocardiogram (01/31/18 ) Complete Blood Count With Diff (01/31/18 13:53) Comprehensive Metabolic Panel (01/31/18 13:53) Prothrombin Time / Inr (Pt) (01/31/18 13:53) Act Partial Throm Time (Ptt) (01/31/18 13:53) Lactic Acid Sepsis Protocol (01/31/18 13:53) Ckmb (Isoenzyme) Profile (01/31/18 13:53) Troponin I (01/31/18 13:53) Urinalysis - C+S If Indicated (01/31/18 13:53) Blood Culture (01/31/18 13:53) Chest, Single Ap (01/31/18 13:53) Blood Glucose (01/31/18 13:53) Ecg Monitoring (01/31/18 13:53) Iv Access Insert/Monitor (01/31/18 13:53) Cath For Specimen (01/31/18 13:53) Oximetry (01/31/18 13:53) Oxygen Administration (01/31/18 13:53) Ct Brain W/O Iv Contrast(Rout) (01/31/18 13:53) Sodium Chlor 0.9% 1000 Ml Inj (Ns 1000 M (01/31/18 13:53) Sodium Chlor 0.9% 1000 Ml Inj (Ns 1000 M (01/31/18 13:53) Ammonia (01/31/18 13:53) Vancomycin Inj (Vancomycin Inj) (01/31/18 15:15) Piperacil-Tazo 3.375 Gm Premix (Zosyn 3. (01/31/18 15:15) CKMB (01/31/18 14:05) CKMB% (01/31/18 14:05) Admit Order (Ed Use Only) (01/31/18 16:29) Admit To Inpatient (01/31/18 ) Code Status (01/31/18 16:30) Vital Signs (Adult) Q4H (01/31/18 16:30) Activity Oob With Assistance (01/31/18 16:30) Diet Heart Healthy (01/31/18 Dinner) Sodium Chloride 0.9% Flush (Ns Flush) (01/31/18 16:30) Sodium Chloride 0.9% Flush (Ns Flush) (01/31/18 21:00) Acetaminophen (Tylenol) (01/31/18 16:30) Ondansetron Inj (Zofran Inj) (01/31/18 16:30) Basic Metabolic Panel (Bmp) (02/01/18 06:00) Complete Blood Count With Diff (02/01/18 06:00) Electrocardiogram (01/31/18 16:30) Pt Request For Service (01/31/18 16:30) Scd Bilateral/Knee High KASEY.BID (01/31/18 16:30) Naloxone Inj (Narcan Inj) (01/31/18 16:30) Magnesium Hydroxide Liq (Milk Of Magnesi (01/31/18 16:30) Inpatient Certification (01/31/18 ) Case Management Consult (01/31/18 ) Aspirin (Aspirin) (01/31/18 16:45) Labs Laboratory Tests Test 01/31/18 14:05 01/31/18 15:10 White Blood Count 14.8 TH/MM3 Red Blood Count 3.74 MIL/MM3 Hemoglobin 12.7 GM/DL Hematocrit 37.4 % Mean Corpuscular Volume 100.1 FL Mean Corpuscular Hemoglobin 34.0 PG Mean Corpuscular Hemoglobin Concent 33.9 % Red Cell Distribution Width 14.6 % Platelet Count 158 TH/MM3 Mean Platelet Volume 8.4 FL Neutrophils (%) (Auto) 78.2 % Lymphocytes (%) (Auto) 13.6 % Monocytes (%) (Auto) 8.1 % Eosinophils (%) (Auto) 0.0 % Basophils (%) (Auto) 0.1 % Neutrophils # (Auto) 11.6 TH/MM3 Lymphocytes # (Auto) 2.0 TH/MM3 Monocytes # (Auto) 1.2 TH/MM3 Eosinophils # (Auto) 0.0 TH/MM3 Basophils # (Auto) 0.0 TH/MM3 CBC Comment DIFF FINAL Differential Comment Prothrombin Time 13.3 SEC Prothromb Time International Ratio 1.3 RATIO Activated Partial Thromboplast Time 26.1 SEC Blood Urea Nitrogen 31 MG/DL Creatinine 0.87 MG/DL Random Glucose 123 MG/DL Total Protein 8.7 GM/DL Albumin 3.4 GM/DL Calcium Level 9.2 MG/DL Alkaline Phosphatase 100 U/L Aspartate Amino Transf (AST/SGOT) 102 U/L Alanine Aminotransferase (ALT/SGPT) 39 U/L Total Bilirubin 0.6 MG/DL Sodium Level 140 MEQ/L Potassium Level 5.0 MEQ/L Chloride Level 108 MEQ/L Carbon Dioxide Level 24.0 MEQ/L Anion Gap 8 MEQ/L Estimat Glomerular Filtration Rate 88 ML/MIN Lactic Acid Level 2.8 mmol/L Ammonia 52 MCMOL/L Total Creatine Kinase 1300 U/L Creatine Kinase MB 9.2 NG/ML Creatine Kinase MB % 0.7 % Troponin I 0.13 NG/ML MDM Supervised Visit with JAY JAY: Yes Interpretation(s) CBC & BMP Diagram 01/31/18 14:05 Total Protein 8.7 H, Albumin 3.4, Calcium Level 9.2, Alkaline Phosphatase 100, Aspartate Amino Transf (AST/SGOT) 102 H, Alanine Aminotransferase (ALT/SGPT) 39 , Total Bilirubin 0.6 Last [address] 01/31/18 0541 Signed Impressions: Service Date/Time: January 14:18 - CONCLUSION: Normal examination for a patient of this age. No significant change has occurred. Raman Hanks MD Chest X-Ray 01/31/18 3613 Signed Impressions: Service Date/Time: January 14:01 - CONCLUSION: No acute disease. Raman Hanks MD Narrative Course I, Dr. Barth, have reviewed the advance practice practitioner's documentation and am in agreement, met with the patient face to face, made the diagnosis, and the medical decision making was done by me. *My assessment and Findings: 67-year-old male presents with altered mental status. Currently no one is in the room to provide additional history. Workup reveals leukocytosis with mild lactic acidosis and he was given antibiotics for coverage of possible infection while urinalysis is pending. Patient concurrently has rhabdomyolysis and mild elevation of his troponin. He was given IV fluids and aspirin and currently without active chest pain. Patient also has elevated ammonia and will be given lactulose. Sepsis Criteria SIRS Criteria (2 or more): Heart rate over 90, WBC > 43342, < 4000 or > 10% bands Sepsis Criteria (SIRS+source): Infect source susp/known Severe Sepsis (+one): Lactate >2 Diagnosis Primary Impression: Hepatic encephalopathy Additional Impressions: Rhabdomyolysis Qualified Codes: M62.82 - Rhabdomyolysis Leukocytosis Qualified Codes: D72.829 - Elevated white blood cell count, unspecified Altered mental status Qualified Codes: R41.82 - Altered mental status, unspecified Lactic acidosis Admitting Information Admitting Physician Requests: Admit Nereida Barth MD Jan 31, 2018 16:42
[2018-01-31] MEDS ORDERED: ASPIRIN 325 MG TAB PO ONE (16:45)
[2018-01-31] MEDS ORDERED: LACTULOSE SYRUP 20 GM/30 ML CUP PO ONE (16:45)
[2018-01-31] MEDS ORDERED: LEVE10003 PO (16:48)
--- NOTE | 2018-01-31 16:49 | HHI.HP ---
HPI Service CP Hospitalists Primary Care Physician Unknown Admission Diagnosis AMS; dehydration/rhabdomyolysis; lactic acidosis; elevated troponin Chief Complaint: Altered mental status Travel History International Travel<30 Days: No Contact w/Intl Traveler <30 Da: No Traveled to Known Affected Are: No History of Present Illness This is 67-year-old male patient with past medical history which includes hepatitis C, liver cirrhosis, seizure disorder, hypertension, chronic pain. Dependent, EtOH abuse, major depressive disorder, OCD, bipolar. Patient was last known to be normal 5 days ago when he spoke to his son over the phone. Patient is but is living separately from his . Patient's stopped by to check on him today noticed him to be in bed and minimally responsive called 911. When [facility] arrived they did find patient with for fentanyl patches on his body patient at this time is noted to be confused, disoriented 3. Patient's reports that he is a DNR. Patient patient unable to provide further information due to his current mental status therefore information gathered from physical exam prior charting and review of outpatient records. Patient offers no complaints at this time. Review of Systems ROS Limitations: Clinical Condition, Poor Historian Past Family Social History Past Medical History hepatitis C, liver cirrhosis, seizure disorder, hypertension, chronic pain. Dependent, EtOH abuse, major depressive disorder, OCD, bipolar Past Surgical History Biopsy of liver, colonoscopy, EGD, drainage of skin abscess left shoulder, shoulder arthrodesis, throat surgery Reported Medications Duragesic Patch 72 HR (Fentanyl) 100 Mcg/Hr Patch 1 Patch TD Q3D Lactulose Liq (Lactulose) 10 Gm/15 Ml Soln 30 Ml PO DAILY 10 Days Neurontin (Gabapentin) 400 Mg Cap 400 Mg PO QID Levetiracetam 1,000 Mg Tab 1,000 Mg PO BID [Oxygen] 2 Ferrous Sulfate 325 Mg (65 Mg Iron) Tablet 325 Mg PO BIDPC Aripiprazole 2 Mg Tab 2 Mg PO DAILY Amlodipine (Amlodipine Besylate) 5 Mg Tab 5 Mg PO DAILY Amitriptyline (Amitriptyline HCl) 25 Mg Tab 25 Mg PO HS Risperidone 2 Mg Tab 2 Mg PO HS Allergies: Coded Allergies: nabumetone (Verified Allergy, Severe, Ulcers, 11/06/17) *MDRO Multi-Drug Resistant Organism (Verified Adverse Reaction, Unknown, ) MDR-Streptococcus Pneumoniae blood 12/2015 Uncoded Allergies: "muscle relaxers" (Adverse Reaction, Unknown, stomach issues, 12/31/16) Family History Family history of leukemia, cirrhosis, esophageal cancer, colon cancer, gastric cancer, heart disease, hyperlipidemia and ulcerative colitis Social History Current tobacco user approximately one pack per day EtOH abuse opioid dependency but Physical Exam Vital Signs Vital Signs Date Time Temp Pulse Resp B/P (MAP) Pulse Ox O2 Delivery O2 Flow Rate FiO2 01/31/18 15:32 103 18 123/81 (95) 95 Room Air 01/31/18 14:04 98 Nasal Cannula 01/31/18 13:50 98.9 100 16 123/81 (95) 95 01/31/18 13:50 100 16 97 Room Air Physical Exam GENERAL: This is a disheveled appearing 67-year-old male patient disoriented 3 malnourished HEAD: Atraumatic. Normocephalic. No temporal or scalp tenderness. EYES: Extraocular motions intact. No scleral icterus. No injection or drainage. CARDIOVASCULAR: Regular rate and rhythm RESPIRATORY: Clear to auscultation. Breath sounds equal bilaterally. GASTROINTESTINAL: Abdomen soft, non-tender, distended MUSCULOSKELETAL: Extremities without clubbing, cyanosis, or edema. No joint tenderness, effusion, or edema noted. No calf tenderness. Negative Homans sign bilaterally. NEUROLOGICAL: Disoriented 3 and moves all 4 extremities spontaneously Motor and sensory grossly within normal limits. 4 out of 5 muscle strength in all muscle groups. Laboratory Laboratory Tests Test 01/31/18 14:05 01/31/18 15:10 White Blood Count 14.8 Red Blood Count 3.74 Hemoglobin 12.7 Hematocrit 37.4 Mean Corpuscular Volume 100.1 Mean Corpuscular Hemoglobin 34.0 Mean Corpuscular Hemoglobin Concent 33.9 Red Cell Distribution Width 14.6 Platelet Count 158 Mean Platelet Volume 8.4 Neutrophils (%) (Auto) 78.2 Lymphocytes (%) (Auto) 13.6 Monocytes (%) (Auto) 8.1 Eosinophils (%) (Auto) 0.0 Basophils (%) (Auto) 0.1 Neutrophils # (Auto) 11.6 Lymphocytes # (Auto) 2.0 Monocytes # (Auto) 1.2 Eosinophils # (Auto) 0.0 Basophils # (Auto) 0.0 CBC Comment DIFF FINAL Differential Comment Prothrombin Time 13.3 Prothromb Time International Ratio 1.3 Activated Partial Thromboplast Time 26.1 Blood Urea Nitrogen 31 Creatinine 0.87 Random Glucose 123 Total Protein 8.7 Albumin 3.4 Calcium Level 9.2 Alkaline Phosphatase 100 Aspartate Amino Transf (AST/SGOT) 102 Alanine Aminotransferase (ALT/SGPT) 39 Total Bilirubin 0.6 Sodium Level 140 Potassium Level 5.0 Chloride Level 108 Carbon Dioxide Level 24.0 Anion Gap 8 Estimat Glomerular Filtration Rate 88 Lactic Acid Level 2.8 Ammonia 52 Total Creatine Kinase 1300 Creatine Kinase MB 9.2 Creatine Kinase MB % 0.7 Troponin I 0.13 Urine Color YELLOW Urine Turbidity CLEAR Urine pH 5.5 Urine Specific [place] 1.025 Urine Protein NEG Urine Glucose (UA) NEG Urine Ketones NEG Urine Occult Blood NEG Urine Nitrite NEG Urine Bilirubin NEG Urine Urobilinogen LESS THAN 2.0 Urine Leukocyte Esterase NEG Microscopic Urinalysis Comment CATH-CULT NOT IND Date/Time Source Procedure Growth Status 01/31/18 14:10 Blood Peripheral Aerobic Blood Culture Pending Received 01/31/18 14:10 Blood Peripheral Anaerobic Blood Culture Pending Received Result Diagram: 01/31/18 1405 01/31/18 1405 Imaging Last Impressions Head CT 01/31/18 1353 Signed Impressions: Service Date/Time: January 14:18 - CONCLUSION: Normal examination for a patient of this age. No significant change has occurred. Raman Hanks MD Chest X-Ray 01/31/18 2725 Signed Impressions: Service Date/Time: January 14:01 - CONCLUSION: No acute disease. Raman Hanks MD Caprini VTE Risk Assessment Caprini VTE Risk Assessment: No/Low Risk (score <= 1) Caprini Risk Assessment Model Point Value = 1 Point Value = 2 Point Value = 3 Point Value = 5 Age 41-60 Minor surgery BMI > 25 kg/m2 Swollen legs Varicose veins or History of unexplained or recurrent spontaneous Oral contraceptives or hormone replacement Sepsis (< 1 month) Serious lung disease, including pneumonia (< 1 month) Abnormal pulmonary function Acute myocardial infarction Congestive heart failure (< 1 month) History of inflammatory bowel disease Medical patient at bed rest Age 61-74 Arthroscopic surgery Major open surgery (> 45 min) Laparoscopic surgery (> 45 min) Malignancy Confined to bed (> 72 hours) Immobilizing plaster cast Central venous access Age >= 75 History of VTE Family history of VTE Factor V Leiden Prothrombin [id number] Lupus anticoagulant Anticardiolipin antibodies Elevated serum homocysteine Heparin-induced thrombocytopenia Other congenital or acquired thrombophilia Stroke (< 1 month) Elective arthroplasty Hip, pelvis, or leg fracture Acute spinal cord injury (< 1 month) Prophylaxis Regimen Total Risk Factor Score Risk Level Prophylaxis Regimen 0-1 Low Early ambulation 2 Moderate Order ONE of the following: *Sequential Compression Device (SCD) *Heparin 5000 units SQ BID 3-4 Higher Order ONE of the following medications: *Heparin 5000 units SQ TID *Enoxaparin/Lovenox 40 mg SQ daily (WT < 150 kg, CrCl > 30 mL/min) *Enoxaparin/Lovenox 30 mg SQ daily (WT < 150 kg, CrCl > 10-29 mL/min) *Enoxaparin/Lovenox 30 mg SQ BID (WT < 150 kg, CrCl > 30 mL/min) AND/OR *Sequential Compression Device (SCD) 5 or more Highest Order ONE of the following medications: *Heparin 5000 units SQ TID (Preferred with Epidurals) *Enoxaparin/Lovenox 40 mg SQ daily (WT < 150 kg, CrCl > 30 mL/min) *Enoxaparin/Lovenox 30 mg SQ daily (WT < 150 kg, CrCl > 10-29 mL/min) *Enoxaparin/Lovenox 30 mg SQ BID (WT < 150 kg, CrCl > 30 mL/min) AND *Sequential Compression Device (SCD) Assessment and Plan Problem List: (1) Altered mental status ICD Codes: R41.82 - Altered mental status, unspecified Status: Resolved Plan: This is 67-year-old male patient with past medical history which includes hepatitis C, liver cirrhosis, seizure disorder, hypertension, chronic pain. Dependent, EtOH abuse, major depressive disorder, OCD, bipolar. Patient was last known to be normal 5 days ago when he spoke to his son over the phone. Patient is but is living separately from his . Patient's stopped by to check on him today noticed him to be in bed and minimally responsive called 911. When [facility] arrived they did find patient with for fentanyl patches on his body patient at this time is noted to be confused, disoriented 3. Patient's reports that he is a DNR. Patient patient unable to provide further information due to his current mental status therefore information gathered from physical exam prior charting her review of outpatient records. Patient offers no complaints at this time. Patient is noted to be disoriented 3 with dehydration rhabdomyolysis elevated ammonia and elevated lactic acid Unclear with patient's been taking his home medications Will resume home medications Will hydrate patient Recheck labs in a.m. Patient is a DNR Arrange family meeting tomorrow at 11 AM to discuss palliative care consultation and further goals of care DVT prophylaxis with SCDs (2) Dehydration ICD Codes: E86.0 - Dehydration Plan: Patient noted to be dehydrated with BUN of 31 creatinine 0.87 and estimated GFR 88-> will provide IV fluids and recheck BMP in a.m. Patient noted to have lactic acid of 2.8 could be related to dehydration as well as possible seizure activity-> will hydrate and recheck (3) Rhabdomyolysis ICD Codes: M62.82 - Rhabdomyolysis Status: Acute Plan: Total CK 1300 CK-MB 9.2 possible rhabdomyolysis versus seizure activity- > hydrate with IV fluids (4) Seizure disorder ICD Codes: G40.909 - Epilepsy, unspecified, not intractable, without status epilepticus Status: Chronic Plan: Patient with history of seizure disorder current clinical state may be post ictal. Patient prescribed kept her one Keppra 1000 monos by mouth twice a day at home is unclear patient's been taking this medication will resume Keppra 1000 mg by mouth twice a day place patient on seizure precautions and close monitoring EEG Ativan PRN (5) Opiate dependence, continuous ICD Codes: F11.20 - Opioid dependence, uncomplicated Status: Chronic (6) Hepatic encephalopathy ICD Codes: K72.90 - Hepatic failure, unspecified without coma Status: Acute Plan: Patient's ammonia level is 52 he is has hepatitis C and liver cirrhosis is on lactulose 30 mg daily unclear patient's been taking this or not-> will give dose of lactulose not recheck ammonia in a.m. Assessment and Plan Patient examined. Assessment and plan formulated with Ana SANDS I agree with the above. Physician Certification 2 Midnight Certification Type: Admission for Inpatient Services Order for Inpatient Services The services are ordered in accordance with Medicare regulations or non- Medicare payer requirements, as applicable. In the case of services not specified as inpatient-only, they are appropriately provided as inpatient services in accordance with the 2-midnight benchmark. Estimated LOS (days): 3 days is the estimated time the patient will need to remain in the hospital, assuming treatment plan goals are met and no additional complications. Post-Hospital Plan: Not yet determined Problem Qualifiers (1) Altered mental status: Qualified Codes: R41.82 - Altered mental status, unspecified (2) Rhabdomyolysis: Qualified Codes: M62.82 - Rhabdomyolysis Ana Amaral Jan 31, 2018 16:49 Jorge Montoya DO Feb 02, 2018 13:48
[2018-01-31 17:25] VITALS: BP 120/76; PULSE 100; RESP 17; O2SAT 94
[2018-01-31] MEDS ORDERED: FLUMAZENIL 0.5 MG/5 ML VIAL IV PUSH PRN (17:45)
[2018-01-31] MEDS ORDERED: LORazepam 2 MG/ML VIAL IV PUSH PRN ×5 (17:45→18:00)
[2018-01-31] MEDS ORDERED: LORazepam 1 MG TAB PO PRN (17:45)
[2018-01-31] MEDS ORDERED: LORazepam 2 MG TAB PO PRN (17:45)
[2018-01-31] MEDS: FERROUS SULFATE 325 MG (65 MG ELEMENTAL IRON) TAB PO SCH (18:47)
[2018-01-31] MEDS: GABAPENTIN 400 MG CAP PO SCH ×2 (18:47→22:17)
[2018-01-31] MEDS ORDERED: levETIRAcetam 500 MG TAB PO ONE (19:00)
[2018-01-31 19:09] LABS: FREE T4 1.01 NG/DL (0.76-1.46)
[2018-01-31 19:15] LABS: FOLATE GREATER THAN 20.0 NG/ML (3.1-17.5)
[2018-01-31 20:00] VITALS: BP 144/91; PULSE 102; RESP 20; TEMP 98.6; O2SAT 95
[2018-01-31] MEDS: AMITRIPTYLINE HCL 25 MG TAB PO SCH (21:00)
[2018-01-31] MEDS: levETIRAcetam 500 MG TAB PO SCH (22:17)
[2018-01-31] MEDS: risperiDONE 1 MG TAB PO SCH (22:17)
[2018-01-31] MEDS: SODIUM CHLORIDE 0.9% FLUSH 10 ML FLUSH IV FLUSH SCH (22:18)
[2018-01-31] MEDS: SODIUM CHLOR 0.9% 1000 ML INJ 1,000 ML IV SCH (22:20)
[2018-02-01] VITALS (7 sets, daily range): BP systolic 125–159; BP diastolic 64–88; PULSE 74–98; RESP 16–18; TEMP 97.4–99.2; O2SAT 91–95
[2018-02-01] MEDS: SODIUM CHLOR 0.9% 1000 ML INJ 1,000 ML IV SCH ×3 (04:15→19:35)
[2018-02-01 05:36] LABS: AUTOMATED NEUTROPHIL # 4.8 TH/MM3 (1.8-7.7); BASOPHIL % 0.4 % (0.0-2.0); EOSINOPHIL % 0.2 % (0.0-4.0); HEMATOCRIT 32.3 % (39.0-51.0); HEMOGLOBIN 11.1 GM/DL (13.0-17.0); LYMPH % 21.1 % (9.0-44.0); LYMPHOCYTE # 1.5 TH/MM3 (1.0-4.8); MEAN CELL VOLUME 99.4 FL (80.0-100.0); MEAN CORPUSCULAR HEMOGLOBIN 34.1 PG (27.0-34.0); MEAN CORPUSCULAR HGB CONC 34.3 % (32.0-36.0); MONO % 9.2 % (0.0-8.0); MONOCYTE # 0.6 TH/MM3 (0-0.9); NEUT % 69.1 % (16.0-70.0); PLATELET COUNT 75 TH/MM3 (150-450); RED BLOOD COUNT 3.25 MIL/MM3 (4.50-5.90); RED CELL DISTRIBUTION WIDTH 14.7 % (11.6-17.2); WHITE BLOOD COUNT 6.9 TH/MM3 (4.0-11.0)
[2018-02-01 06:04] LABS: BICARBONATE 22.8 MEQ/L (21.0-32.0); CALCIUM 7.9 MG/DL (8.5-10.1); CREATININE 0.62 MG/DL (0.60-1.30); TROPONIN I 0.1 NG/ML (0.02-0.05)
[2018-02-01] MEDS: LACTULOSE SYRUP 20 GM/30 ML CUP PO SCH (08:51)
[2018-02-01] MEDS: THIAMINE HCL 100 MG TAB PO SCH (08:52)
[2018-02-01] MEDS: amLODIPine BESYLATE 5 MG TAB PO SCH (08:53)
[2018-02-01] MEDS: levETIRAcetam 500 MG TAB PO SCH ×2 (08:53→21:01)
[2018-02-01] MEDS: FOLIC ACID 1 MG TAB PO SCH (08:53)
[2018-02-01] MEDS: GABAPENTIN 400 MG CAP PO SCH ×4 (08:53→21:00)
[2018-02-01] MEDS: ARIPiprazole 2 MG TAB PO SCH (08:53)
[2018-02-01] MEDS: FERROUS SULFATE 325 MG (65 MG ELEMENTAL IRON) TAB PO SCH ×2 (08:54→18:01)
[2018-02-01] MEDS: SODIUM CHLORIDE 0.9% FLUSH 10 ML FLUSH IV FLUSH SCH ×2 (08:55→21:00)
[2018-02-01 11:23] LABS: MAGNESIUM 2.2 MG/DL (1.5-2.5)
[2018-02-01] MEDS ORDERED: POTASSIUM CHLORIDE 20 MEQ CONTROLLED RELEASE TAB PO ONE (11:30)
--- NOTE | 2018-02-01 11:36 | EKG ---
Date Performed: 01/31/2018 Time Performed: 13:58:58 PTAGE: 67 years EKG: SINUS TACHYCARDIA WITH OCCASIONAL SUPRAVENTRICULAR PREMATURE COMPLEXES INDETERMINATE AXIS I NCOMPLETE RIGHT BUNDLE BRANCH BLOCK POSSIBLE RIGHT VENTRICULAR HYPERTROPHY ABNORMAL ECG PREVIOUS TRACING : 01/05/2017 17.05 Since the previous tracing, no significant change noted DOCTOR: Parvez Diaz Interpretating Date/Time 02/01/2018 11:31:33
--- NOTE | 2018-02-01 11:37 | EKG ---
Date Performed: 01/31/2018 Time Performed: 22:15:19 PTAGE: 67 years EKG: Sinus rhythm WITH SINUS ARRHYTHMIA INDETERMINATE AXIS SEPTAL MYOCARDIAL INFARCTION , PROBABLY OLD ABNORMAL ECG PREVIOUS TRACING : 01/31/2018 13.58 Since the previous tracing, no significant change noted DOCTOR: Parvez Diaz Interpretating Date/Time 02/01/2018 11:31:41
--- NOTE | 2018-02-01 14:47 | MG ---
cc: Ernesto Purcell MD, PhD TEXT NUMBER: [id number] TECHNIQUE: A 17-channel EEG. DESCRIPTION: The background rhythm reveals mild slowing in the theta range at roughly 6-7 Hz. Amplitude is 20-30 mV. There are no lateralizing features seen. There are no epileptiform discharges. Photic was done in a stepwise fashion with a modest driving response. INTERPRETATION: There is mild slowing on the electroencephalogram in a symmetric fashion consistent with a mild encephalopathy. Ernesto Purcell MD, PhD NICHELLE/ERICA , 02:25 PM , 02:46 PM
[2018-02-01 16:07] LABS: HEMATOCRIT 33.4 % (39.0-51.0); HEMOGLOBIN 11.4 GM/DL (13.0-17.0); MEAN CELL VOLUME 99.1 FL (80.0-100.0); MEAN CORPUSCULAR HEMOGLOBIN 33.9 PG (27.0-34.0); MEAN CORPUSCULAR HGB CONC 34.2 % (32.0-36.0); MEAN PLATELET VOLUME 7.9 FL (7.0-11.0); PLATELET COUNT 67 TH/MM3 (150-450); RED BLOOD COUNT 3.37 MIL/MM3 (4.50-5.90); RED CELL DISTRIBUTION WIDTH 14.8 % (11.6-17.2); WHITE BLOOD COUNT 7.5 TH/MM3 (4.0-11.0)
[2018-02-01] MEDS: AMITRIPTYLINE HCL 25 MG TAB PO SCH (21:00)
[2018-02-01] MEDS: risperiDONE 1 MG TAB PO SCH (21:00)
[2018-02-02] VITALS (8 sets, daily range): BP systolic 114–153; BP diastolic 56–87; PULSE 84–100; RESP 20–22; TEMP 97.5–98.6; O2SAT 95–97
[2018-02-02 06:40] LABS: AUTOMATED NEUTROPHIL # 3.6 TH/MM3 (1.8-7.7); BASOPHIL % 0.4 % (0.0-2.0); EOSINOPHIL % 0.5 % (0.0-4.0); MEAN CELL VOLUME 99.5 FL (80.0-100.0); MEAN CORPUSCULAR HEMOGLOBIN 34.2 PG (27.0-34.0); MEAN CORPUSCULAR HGB CONC 34.4 % (32.0-36.0); MONO % 9.7 % (0.0-8.0); MONOCYTE # 0.5 TH/MM3 (0-0.9); NEUT % 69.4 % (16.0-70.0); PLATELET COUNT 62 TH/MM3 (150-450); RED BLOOD COUNT 3.52 MIL/MM3 (4.50-5.90); RED CELL DISTRIBUTION WIDTH 14.5 % (11.6-17.2); WHITE BLOOD COUNT 5.2 TH/MM3 (4.0-11.0)
[2018-02-02 07:51] LABS: ALKALINE PHOSPHATASE 87 U/L (45-117); ALT (GPT) 47 U/L (12-78); AST (GOT) 94 U/L (15-37); BLOOD UREA NITROGEN 10 MG/DL (7-18); CALCIUM 7.7 MG/DL (8.5-10.1); CHLORIDE 112 MEQ/L (98-107); CREATININE 0.58 MG/DL (0.60-1.30); GLOMERULAR FILTRATION RATE 140 ML/MIN (>89); GLUCOSE,RANDOM 103 MG/DL (74-106); SODIUM (NA) 141 MEQ/L (136-145); TOTAL BILIRUBIN ADULT 0.7 MG/DL (0.2-1.0); TOTAL PROTEIN 7.4 GM/DL (6.4-8.2)
[2018-02-02] MEDS: SODIUM CHLORIDE 0.9% FLUSH 10 ML FLUSH IV FLUSH SCH ×2 (09:00→20:46)
[2018-02-02] MEDS: FERROUS SULFATE 325 MG (65 MG ELEMENTAL IRON) TAB PO SCH ×2 (09:07→17:54)
[2018-02-02] MEDS: ARIPiprazole 2 MG TAB PO SCH (09:08)
[2018-02-02] MEDS: levETIRAcetam 500 MG TAB PO SCH ×2 (09:08→20:46)
[2018-02-02] MEDS: GABAPENTIN 400 MG CAP PO SCH ×4 (09:08→20:45)
[2018-02-02] MEDS: THIAMINE HCL 100 MG TAB PO SCH (09:08)
[2018-02-02] MEDS: LACTULOSE SYRUP 20 GM/30 ML CUP PO SCH (09:08)
[2018-02-02] MEDS: FOLIC ACID 1 MG TAB PO SCH (09:08)
[2018-02-02] MEDS: amLODIPine BESYLATE 5 MG TAB PO SCH (09:08)
[2018-02-02] MEDS: ACETAMINOPHEN 325 MG TAB PO PRN ×2 (09:08→17:54)
[2018-02-02] MEDS ORDERED: POTASSIUM CHLORIDE 20 MEQ CONTROLLED RELEASE TAB PO ONE (09:45)
[2018-02-02] MEDS: SODIUM CHLOR 0.9% 1000 ML INJ 1,000 ML IV SCH (12:29)
--- NOTE | 2018-02-02 13:48 | HHI.PR ---
Subjective Remarks LATE ENTRY NOTE NOTE FROM 02/01/18 DID NOT SAVE IN [facility]. Pt with NO new complaints. Pt more alert from admission. Objective Vitals Vital Signs Date Time Temp Pulse Resp B/P (MAP) Pulse Ox O2 Delivery O2 Flow Rate FiO2 02/02/18 12:00 98.6 98 20 140/85 (103) 95 02/02/18 08:00 Room Air 02/02/18 08:00 98.0 88 22 153/87 (109) 97 02/02/18 05:13 98.1 86 20 151/86 (107) 95 02/02/18 00:00 98.2 84 20 114/56 (75) 95 02/01/18 20:00 97.4 91 18 143/88 (106) 95 02/01/18 19:00 Room Air 02/01/18 17:00 91 02/01/18 16:00 98.5 83 18 159/74 (102) 94 Result Diagram: 02/02/18 0630 02/02/18 0630 Imaging Last Impressions Head CT 01/31/18 1353 Signed Impressions: Service Date/Time: January 14:18 - CONCLUSION: Normal examination for a patient of this age. No significant change has occurred. Raman Hanks MD Chest X-Ray 01/31/18 1356 Signed Impressions: Service Date/Time: January 14:01 - CONCLUSION: No acute disease. Raman Hanks MD Objective Remarks GENERAL: This is a well-nourished, well-developed patient, in no apparent distress. CARDIOVASCULAR: Regular rate and rhythm without murmurs, gallops, or rubs. RESPIRATORY: Clear to auscultation. Breath sounds equal bilaterally. No wheezes , rales, or rhonchi. GASTROINTESTINAL: Abdomen soft, non-tender, nondistended. Normal active bowel sounds MUSCULOSKELETAL: Extremities without clubbing, cyanosis, or edema. NEURO: Alert & Oriented x2, DOUGLAS A/P Problem List: (1) Altered mental status ICD Codes: R41.82 - Altered mental status, unspecified Status: Resolved Plan: This is 67-year-old male patient with past medical history which includes hepatitis C, liver cirrhosis, seizure disorder, hypertension, chronic pain. Dependent, EtOH abuse, major depressive disorder, OCD, bipolar. Patient was last known to be normal 5 days ago when he spoke to his son over the phone. Patient is but is living separately from his . Patient's stopped by to check on him today noticed him to be in bed and minimally responsive called 911. When [facility] arrived they did find patient with for fentanyl patches on his body patient at this time is noted to be confused, disoriented 3. Patient's reports that he is a DNR. - Pt was disoriented at admission with dehydration, rhabdomyolysis, and elevated ammonia and elevated lactic acid - unclear if pt had been taking his home medications - ammonia 52 (01/31), 44 (02/01) - lactulose resumed upon admission - continue IVFs - creatinine 1300 (01/31), 994 (02/01) - Met with pt's family: , son, and [id number] (01/31) - Pt with h/o polysubstance abuse - supportive care - DVT prophylaxis - PT (2) Dehydration ICD Codes: E86.0 - Dehydration Plan: Patient noted to be dehydrated with BUN of 31 creatinine 0.87 and estimated GFR 88-> will provide IV fluids and recheck BMP in a.m. Patient noted to have lactic acid of 2.8 could be related to dehydration as well as possible seizure activity-> will hydrate and recheck - EEG (02/01) --> no seizure activity - see above (3) Rhabdomyolysis ICD Codes: M62.82 - Rhabdomyolysis Status: Acute Plan: - improving - see above (4) Seizure disorder ICD Codes: G40.909 - Epilepsy, unspecified, not intractable, without status epilepticus Status: Chronic Plan: Patient with history of seizure disorder current clinical state may be post ictal. Patient prescribed kept her one Keppra 1000 monos by mouth twice a day at home is unclear patient's been taking this medication will resume Keppra 1000 mg by mouth twice a day place patient on seizure precautions and close monitoring EEG (02/01) --> no seizure activity Ativan PRN (5) Opiate dependence, continuous ICD Codes: F11.20 - Opioid dependence, uncomplicated Status: Chronic (6) Hepatic encephalopathy ICD Codes: K72.90 - Hepatic failure, unspecified without coma Status: Acute Plan: Patient's ammonia level is 52 he is has hepatitis C and liver cirrhosis is on lactulose 30 mg daily unclear patient's been taking this or not-> - resume lactulose. recheck ammonia in a.m. Problem Qualifiers (1) Altered mental status: Qualified Codes: R41.82 - Altered mental status, unspecified (2) Rhabdomyolysis: Qualified Codes: M62.82 - Rhabdomyolysis Jorge Montoya DO Feb 02, 2018 13:48
--- NOTE | 2018-02-02 13:51 | HHI.PR ---
Subjective Remarks No new complaints. Objective Vitals Vital Signs Date Time Temp Pulse Resp B/P (MAP) Pulse Ox O2 Delivery O2 Flow Rate FiO2 02/02/18 12:00 98.6 98 20 140/85 (103) 95 02/02/18 08:00 Room Air 02/02/18 08:00 98.0 88 22 153/87 (109) 97 02/02/18 05:13 98.1 86 20 151/86 (107) 95 02/02/18 00:00 98.2 84 20 114/56 (75) 95 02/01/18 20:00 97.4 91 18 143/88 (106) 95 02/01/18 19:00 Room Air 02/01/18 17:00 91 02/01/18 16:00 98.5 83 18 159/74 (102) 94 Result Diagram: 02/02/18 0630 02/02/18 0630 Imaging Last Impressions Head CT 01/31/18 1353 Signed Impressions: Service Date/Time: January 14:18 - CONCLUSION: Normal examination for a patient of this age. No significant change has occurred. Raman Hanks MD Chest X-Ray 01/31/18 1353 Signed Impressions: Service Date/Time: January 14:01 - CONCLUSION: No acute disease. Raman Hanks MD Objective Remarks GENERAL: This is a well-nourished, well-developed patient, in no apparent distress. CARDIOVASCULAR: Regular rate and rhythm without murmurs, gallops, or rubs. RESPIRATORY: Clear to auscultation. Breath sounds equal bilaterally. No wheezes , rales, or rhonchi. GASTROINTESTINAL: Abdomen soft, non-tender, nondistended. Normal active bowel sounds MUSCULOSKELETAL: Extremities without clubbing, cyanosis, or edema. NEURO: Alert & Oriented x2, DOUGLAS A/P Problem List: (1) Altered mental status ICD Codes: R41.82 - Altered mental status, unspecified Status: Resolved Plan: This is 67-year-old male patient with past medical history which includes hepatitis C, liver cirrhosis, seizure disorder, hypertension, chronic pain. Dependent, EtOH abuse, major depressive disorder, OCD, bipolar. Patient was last known to be normal 5 days ago when he spoke to his son over the phone. Patient is but is living separately from his . Patient's stopped by to check on him today noticed him to be in bed and minimally responsive called 911. When [facility] arrived they did find patient with for fentanyl patches on his body patient at this time is noted to be confused, disoriented 3. Patient's reports that he is a DNR. - Pt was disoriented at admission with dehydration, rhabdomyolysis, and elevated ammonia and elevated lactic acid - unclear if pt had been taking his home medications - ammonia 52 (01/31), 44 (02/01) - lactulose resumed upon admission - continue IVFs - creatinine 1300 (01/31), 994 (02/01), 449 (02/02) - Met with pt's family: , son, and [id number] (01/31) - Pt with h/o polysubstance abuse - supportive care - DVT prophylaxis - PT - anticipate d/c to home with [facility] 02/03/18 (2) Dehydration ICD Codes: E86.0 - Dehydration Plan: Patient noted to be dehydrated with BUN of 31 creatinine 0.87 and estimated GFR 88-> will provide IV fluids and recheck BMP in a.m. Patient noted to have lactic acid of 2.8 could be related to dehydration as well as possible seizure activity-> will hydrate and recheck - EEG (02/01) --> no seizure activity - see above (3) Rhabdomyolysis ICD Codes: M62.82 - Rhabdomyolysis Status: Acute Plan: - improving - see above (4) Seizure disorder ICD Codes: G40.909 - Epilepsy, unspecified, not intractable, without status epilepticus Status: Chronic Plan: Patient with history of seizure disorder current clinical state may be post ictal. Patient prescribed kept her one Keppra 1000 monos by mouth twice a day at home is unclear patient's been taking this medication will resume Keppra 1000 mg by mouth twice a day place patient on seizure precautions and close monitoring EEG (02/01) --> no seizure activity Ativan PRN (5) Opiate dependence, continuous ICD Codes: F11.20 - Opioid dependence, uncomplicated Status: Chronic (6) Hepatic encephalopathy ICD Codes: K72.90 - Hepatic failure, unspecified without coma Status: Acute Plan: Patient's ammonia level is 52 he is has hepatitis C and liver cirrhosis is on lactulose 30 mg daily unclear patient's been taking this or not-> - resume lactulose. recheck ammonia in a.m. Problem Qualifiers (1) Altered mental status: Qualified Codes: R41.82 - Altered mental status, unspecified (2) Rhabdomyolysis: Qualified Codes: M62.82 - Rhabdomyolysis Jorge Montoya DO Feb 02, 2018 13:51
--- NOTE | 2018-02-02 13:57 | HHI.FF ---
Face to Face Verification Diagnosis: (1) Dehydration (2) Altered mental status (3) Hepatic encephalopathy (4) Cirrhosis (5) COPD (chronic obstructive pulmonary disease) Physical Therapy Order: Evaluate and Treat, Improve ambulation, Strength and gait training Home Health Nursing Order: Medical education Signs/symptoms of disease process Medication education-adverse effect Nursing assessment with vital signs Production Line [employer]ic Order: To Evaluate: Living conditions/environment, Support services Order: To Provide: Long range planning, Community services I have seen patient Ayush Yuen on 02/02/18. My clinical findings support the need for the requested home health care services because: Ltd mobility - disease progression Deconditioned w/ increased weakness Med compliance is questionable Limited ability to care for self Need for psychosocial assistance Impaired cognition/judgement I certify that my clinical findings support that this patient is homebound because: Impaired cognitive ability/safety Unsafe to leave home unassisted Need for psychosocial assistance Unable to use public transportation Jorge Montoya DO Feb 02, 2018 13:57
[2018-02-02] MEDS: risperiDONE 1 MG TAB PO SCH (20:46)
[2018-02-02] MEDS: AMITRIPTYLINE HCL 25 MG TAB PO SCH (20:46)
[2018-02-03 05:49] VITALS: BP 124/75; PULSE 92; RESP 20; TEMP 98.1; O2SAT 93
[2018-02-03 08:00] VITALS: BP 131/88; PULSE 93; RESP 19; TEMP 98.2; O2SAT 95
[2018-02-03] MEDS: LACTULOSE SYRUP 20 GM/30 ML CUP PO SCH (09:02)
[2018-02-03] MEDS: amLODIPine BESYLATE 5 MG TAB PO SCH (09:02)
[2018-02-03] MEDS: GABAPENTIN 400 MG CAP PO SCH (09:02)
[2018-02-03] MEDS: THIAMINE HCL 100 MG TAB PO SCH (09:02)
[2018-02-03] MEDS: ARIPiprazole 2 MG TAB PO SCH (09:03)
[2018-02-03] MEDS: SODIUM CHLORIDE 0.9% FLUSH 10 ML FLUSH IV FLUSH SCH (09:03)
[2018-02-03] MEDS: FERROUS SULFATE 325 MG (65 MG ELEMENTAL IRON) TAB PO SCH (09:03)
[2018-02-03] MEDS: FOLIC ACID 1 MG TAB PO SCH (09:03)
[2018-02-03] MEDS: levETIRAcetam 500 MG TAB PO SCH (09:03)
[2018-02-03] MEDS: ACETAMINOPHEN 325 MG TAB PO PRN (09:07)
[2018-02-03 10:14] LABS: AUTOMATED NEUTROPHIL # 5.7 TH/MM3 (1.8-7.7); BASOPHIL % 0.3 % (0.0-2.0); EOSINOPHIL # 0.1 TH/MM3 (0-0.4); EOSINOPHIL % 1.3 % (0.0-4.0); HEMATOCRIT 38.4 % (39.0-51.0); HEMOGLOBIN 13.2 GM/DL (13.0-17.0); LYMPH % 15.6 % (9.0-44.0); LYMPHOCYTE # 1.2 TH/MM3 (1.0-4.8); MEAN CELL VOLUME 99.2 FL (80.0-100.0); MEAN CORPUSCULAR HEMOGLOBIN 34.2 PG (27.0-34.0); MEAN CORPUSCULAR HGB CONC 34.5 % (32.0-36.0); MEAN PLATELET VOLUME 8.6 FL (7.0-11.0); MONO % 7.7 % (0.0-8.0); MONOCYTE # 0.6 TH/MM3 (0-0.9); NEUT % 75.1 % (16.0-70.0); PLATELET COUNT 87 TH/MM3 (150-450); RED BLOOD COUNT 3.87 MIL/MM3 (4.50-5.90); RED CELL DISTRIBUTION WIDTH 14.7 % (11.6-17.2); WHITE BLOOD COUNT 7.5 TH/MM3 (4.0-11.0)
--- NOTE | 2018-02-03 11:12 | HHI.DCPOC ---
Discharge Care Plan Diagnosis: (1) Hepatic encephalopathy (2) Rhabdomyolysis (3) Altered mental status (4) Dehydration Goals to Promote Your Health * To prevent worsening of your condition and complications * To maintain your health at the optimal level Directions to Meet Your Goals Take your medications as prescribed Follow your dietary instruction Follow activity as directed Keep your appointments as scheduled Take your immunizations and boosters as scheduled If your symptoms worsen call your PCP, if no PCP go to Urgent Care Center or Emergency Room Smoking is Dangerous to Your Health. Avoid second hand smoke Call the 24-hour hour crisis hotline for domestic abuse at Ana Amaral Feb 03, 2018 11:12 Jorge Montoya DO Feb 03, 2018 13:28
--- NOTE | 2018-02-03 11:15 | HHI.DS ---
Discharge Summary Admission Date Jan 31, 2018 at 16:33 Discharge Date: Feb 03, 2018 Admitting Diagnosis AMS; dehydration/rhabdomyolysis; lactic acidosis; elevated troponin (1) Altered mental status Diagnosis: Principal ICD Codes: R41.82 - Altered mental status, unspecified Status: Resolved (2) Dehydration Diagnosis: Principal ICD Codes: E86.0 - Dehydration (3) Rhabdomyolysis Diagnosis: Principal ICD Codes: M62.82 - Rhabdomyolysis Status: Acute (4) Seizure disorder Diagnosis: Secondary ICD Codes: G40.909 - Epilepsy, unspecified, not intractable, without status epilepticus Status: Chronic (5) Opiate dependence, continuous Diagnosis: Secondary ICD Codes: F11.20 - Opioid dependence, uncomplicated Status: Chronic (6) Hepatic encephalopathy Diagnosis: Principal ICD Codes: K72.90 - Hepatic failure, unspecified without coma Status: Acute Consultants none Procedures none Brief History This is 67-year-old male patient with past medical history which includes hepatitis C, liver cirrhosis, seizure disorder, hypertension, chronic pain. Dependent, EtOH abuse, major depressive disorder, OCD, bipolar. Patient was last known to be normal 5 days ago when he spoke to his son over the phone. Patient is but is living separately from his . Patient's stopped by to check on him today noticed him to be in bed and minimally responsive called 911. When [facility] arrived they did find patient with for fentanyl patches on his body patient at this time is noted to be confused, disoriented 3. Patient's reports that he is a DNR. Patient patient unable to provide further information due to his current mental status therefore information gathered from physical exam prior charting and review of outpatient records. Patient offers no complaints at this time. CBC/BMP: 02/03/18 0954 02/02/18 0630 Significant Findings Laboratory Tests Test 01/31/18 14:05 01/31/18 15:10 01/31/18 17:35 01/31/18 23:21 White Blood Count 14.8 TH/MM3 (4.0-11.0) Red Blood Count 3.74 MIL/MM3 (4.50-5.90) Hemoglobin 12.7 GM/DL (13.0-17.0) Hematocrit 37.4 % (39.0-51.0) Mean Corpuscular Volume 100.1 FL (80.0-100.0) Neutrophils (%) (Auto) 78.2 % (16.0-70.0) Monocytes (%) (Auto) 8.1 % (0.0-8.0) Neutrophils # (Auto) 11.6 TH/MM3 (1.8-7.7) Monocytes # (Auto) 1.2 TH/MM3 (0-0.9) Prothrombin Time 13.3 SEC (9.8-11.6) Blood Urea Nitrogen 31 MG/DL (7-18) Random Glucose 123 MG/DL (74-106) Total Protein 8.7 GM/DL (6.4-8.2) Aspartate Amino Transf (AST/SGOT) 102 U/L (15-37) Chloride Level 108 MEQ/L (98-107) Estimat Glomerular Filtration Rate 88 ML/MIN (>89) Lactic Acid Level 2.8 mmol/L (0.4-2.0) 3.8 mmol/L (0.4-2.0) Ammonia 52 MCMOL/L (11-32) Total Creatine Kinase 1300 U/L (39-308) Creatine Kinase MB 9.2 NG/ML (0.5-3.6) Troponin I 0.13 NG/ML (0.02-0.05) 0.12 NG/ML (0.02-0.05) Folate GREATER THAN 20.0 NG/ML Thyroid Stimulating Hormone 3rd Gen 0.294 uIU/ML (0.358-3.740) Test 02/01/18 05:26 02/01/18 15:45 02/02/18 06:30 02/03/18 09:54 Red Blood Count 3.25 MIL/MM3 (4.50-5.90) 3.37 MIL/MM3 (4.50-5.90) 3.52 MIL/MM3 (4.50-5.90) 3.87 MIL/MM3 (4.50-5.90) Hemoglobin 11.1 GM/DL (13.0-17.0) 11.4 GM/DL (13.0-17.0) 12.0 GM/DL (13.0-17.0) Hematocrit 32.3 % (39.0-51.0) 33.4 % (39.0-51.0) 35.0 % (39.0-51.0) 38.4 % (39.0-51.0) Mean Corpuscular Hemoglobin 34.1 PG (27.0-34.0) 34.2 PG (27.0-34.0) 34.2 PG (27.0-34.0) Platelet Count 75 TH/MM3 (150-450) 67 TH/MM3 (150-450) 62 TH/MM3 (150-450) 87 TH/MM3 (150-450) Monocytes (%) (Auto) 9.2 % (0.0-8.0) 9.7 % (0.0-8.0) Platelet Estimate LOW (NORMAL) LOW (NORMAL) LOW (NORMAL) Blood Urea Nitrogen 24 MG/DL (7-18) Random Glucose 109 MG/DL (74-106) Calcium Level 7.9 MG/DL (8.5-10.1) 7.7 MG/DL (8.5-10.1) Potassium Level 3.2 MEQ/L (3.5-5.1) 3.3 MEQ/L (3.5-5.1) Chloride Level 113 MEQ/L (98-107) 112 MEQ/L (98-107) Ammonia 44 MCMOL/L (11-32) 39 MCMOL/L (11-32) Total Creatine Kinase 994 U/L (39-308) 449 U/L (39-308) Creatine Kinase MB 7.9 NG/ML (0.5-3.6) 4.6 NG/ML (0.5-3.6) Troponin I 0.10 NG/ML (0.02-0.05) Basophilic Stippling FAINT (NORMAL) Creatinine 0.58 MG/DL (0.60-1.30) Albumin 3.0 GM/DL (3.4-5.0) Aspartate Amino Transf (AST/SGOT) 94 U/L (15-37) Neutrophils (%) (Auto) 75.1 % (16.0-70.0) Imaging Last Impressions Head CT 01/31/18 6712 Signed Impressions: Service Date/Time: January 14:18 - CONCLUSION: Normal examination for a patient of this age. No significant change has occurred. Raman Hanks MD Chest X-Ray 01/31/18 1494 Signed Impressions: Service Date/Time: January 14:01 - CONCLUSION: No acute disease. Raman Hanks MD PE at Discharge GENERAL: This is a well-nourished, well-developed patient, in no apparent distress. CARDIOVASCULAR: Regular rate and rhythm without murmurs, gallops, or rubs. RESPIRATORY: Clear to auscultation. Breath sounds equal bilaterally. No wheezes , rales, or rhonchi. GASTROINTESTINAL: Abdomen soft, non-tender, nondistended. Normal active bowel sounds MUSCULOSKELETAL: Extremities without clubbing, cyanosis, or edema. NEURO: Alert & Oriented x3, [facility] Altered mental status This is 67-year-old male patient with past medical history which includes hepatitis C, liver cirrhosis, seizure disorder, hypertension, chronic pain. Dependent, EtOH abuse, major depressive disorder, OCD, bipolar. Patient was last known to be normal 5 days ago when he spoke to his son over the phone. Patient is but is living separately from his . Patient's stopped by to check on him today noticed him to be in bed and minimally responsive called 911. When [facility] arrived they did find patient with for fentanyl patches on his body patient at this time is noted to be confused, disoriented 3. Patient's reports that he is a DNR. - Pt was disoriented at admission with dehydration, rhabdomyolysis, and elevated ammonia and elevated lactic acid - unclear if pt had been taking his home medications - ammonia 52 (01/31), 44 (02/01), 39 (02/02) - lactulose resumed upon admission - continue IVFs - creatinine 1300 (01/31), 994 (02/01), 449 (02/02) - Met with pt's family: , son, and [id number] (01/31) - Pt with h/o polysubstance abuse - supportive care - DVT prophylaxis - PT Dehydration Patient noted to be dehydrated with BUN of 31 creatinine 0.87 and estimated GFR 88-> will provide IV fluids and recheck BMP in a.m. Patient noted to have lactic acid of 2.8 could be related to dehydration as well as possible seizure activity-> will hydrate and recheck - see above Rhabdomyolysis - improving - see above Seizure disorder Patient with history of seizure disorder current clinical state may be post ictal. Patient prescribed kept her one Keppra 1000 monos by mouth twice a day at home is unclear patient's been taking this medication will resume Keppra 1000 mg by mouth twice a day place patient on seizure precautions and close monitoring EEG (02/01) --> no seizure activity Ativan PRN Opiate dependence, continuous Chronic pain Chronic Fentanyl patch DC'd on admission due to confusion patient has been tolerating well Recommend patient continue to hold Fentanyl patch at DC Hepatic encephalopathy Patient's ammonia level is 52 he is has hepatitis C and liver cirrhosis is on lactulose 30 mg daily. Patient reports he was not consistently taking Lactulose - resume lactulose. Patient counselled on the importance of taking lactulose daily as prescribed Patient mentation improved greatly he appears to be back to baseline. Pt Condition on Discharge: Stable Discharge Disposition: Disch w/ Home Health Serv Discharge Instructions DIET: Follow Instructions for: Heart Healthy Diet Activities you can perform: Regular-No Restrictions Follow up Referrals: PCP Follow-up - [address] Blanca Continued Medications: Amitriptyline (Amitriptyline) 25 Mg Tab 25 MG PO HS, TAB Amlodipine (Amlodipine) 5 Mg Tab 5 MG PO DAILY for Blood Pressure Management, #30 TAB 0 Refills Aripiprazole (Aripiprazole) 2 Mg Tab 2 MG PO DAILY, #30 TAB 0 Refills Fentanyl Patch 72 HR (Duragesic Patch 72 HR) 50 Mcg/Hr Patch 1 PATCH TD Q3D for Pain Management, #6 APPL Ferrous Sulfate (Ferrous Sulfate) 325 Mg (65 Mg Iron) Tablet 325 MG PO BIDPC for Nutritional Supplement, #60 TAB 0 Refills Gabapentin (Neurontin) 400 Mg Cap 400 MG PO QID for Pain Management, #28 CAP Lactulose Liq (Lactulose Liq) 10 Gm/15 Ml Soln 30 ML PO DAILY for Nutritional Supplement for 10 Days, ML Levetiracetam (Levetiracetam) 1,000 Mg Tab 1000 MG PO BID for Control Seizures, #60 TAB 0 Refills Risperidone (Risperidone) 2 Mg Tab 2 MG PO HS, #30 TAB 0 Refills Additional Information Patient examined. Assessment and plan formulated with Ana Amaral PA-C. I agree with the above. Pt's mentation much improved from admission. D/w pt the importance of continued use of lactulose to avoid elevation of his ammonia level and to avoid hepatic encephalopathy. Pt to f/u with PCP, Dr. Jacinto. Pt to f/u with Dr. Renae for treatment of Hepatitis C. Ana Amaral Feb 03, 2018 11:15 Jorge Montoya DO Feb 03, 2018 13:31
[2018-02-03 11:27] LABS: BICARBONATE 21.9 MEQ/L (21.0-32.0); CALCIUM 7.9 MG/DL (8.5-10.1); CREATININE 0.72 MG/DL (0.60-1.30); MAGNESIUM 2.2 MG/DL (1.5-2.5)
[2018-02-03 12:00] VITALS: BP 121/76; PULSE 100; RESP 20; TEMP 98; O2SAT 95
== END 2018-02-03 16:55 | disposition home health service (06) | DRG 442 ==
LOC: NEPE 13:29 → NEDA 16:33 → N04A 20:00
PROVIDERS: ADMIT Hospitalist; ATTEND Hospitalist
DX: K72.90 Hepatic failure, unspecified without coma (principal); M62.82 Rhabdomyolysis; E87.2 Acidosis; F11.20 Opioid dependence, uncomplicated; K74.60 Unspecified cirrhosis of liver; E86.0 Dehydration; G40.909 Epilepsy, unspecified, not intractable, without status epilepticus; I10 Essential (primary) hypertension; Z72.0 Tobacco use; Z86.73 Personal history of transient ischemic attack (TIA), and cerebral infarction without residual deficits; Z66 Do not resuscitate; Z85.820 Personal history of malignant melanoma of skin
CPT/HCPCS: 70450; 71045; 80048; 80053; 81001; 82140; 82550; 82552; 82607; 82746; 83605; 83735; 84439; 84443; 84484; 85025; 85027; 85610; 85730; 86592; 87040; 93005; 95819; 96361; 96365; J2405; J2543; J7030; P9612

== ENCOUNTER 2018-02-06 15:03 | Inpatient (IN) | payer MEDICARE ==
[2018-02-06] VITALS (12 sets, daily range): BP systolic 79–125; BP diastolic 42–83; PULSE 90–158; RESP 14–22; TEMP 98.1–98.4; O2SAT 84–97
[~2018-02-06] VITALS: Ht 177.8 cm; Wt 77.0 kg
[~2018-02-06 15:03] MED LIST changes: -FENT50T TD; +LEVE10003 PO
[2018-02-06] MEDS ORDERED: SODIUM CHLORIDE 0.9% FLUSH 10 ML FLUSH IVF PRN (15:15)
[2018-02-06] MEDS ORDERED: SODIUM CHLOR 0.9% 1000 ML INJ 1,000 ML IV ONE ×2 (15:15)
[2018-02-06] MEDS ORDERED: ETOMIDATE 20 MG/10 ML VIAL IV PUSH ONE (15:30)
[2018-02-06 15:35] LABS: CHLORIDE 104 MEQ/L (98-107); SODIUM (NA) 136 MEQ/L (136-145)
[2018-02-06 15:37] LABS: BICARBONATE 23.5 MEQ/L (21.0-32.0); CALCIUM 8.3 MG/DL (8.5-10.1); GLUCOSE,RANDOM 114 MG/DL (74-106)
[2018-02-06 15:38] LABS: BLOOD UREA NITROGEN 15 MG/DL (7-18)
[2018-02-06 15:39] LABS: ALBUMIN 3.1 GM/DL (3.4-5.0); MAGNESIUM 2.2 MG/DL (1.5-2.5)
[2018-02-06 15:40] LABS: INTERNATIONAL NORMALIZED RATIO 1.2 RATIO
[2018-02-06 15:42] LABS: ALT (GPT) 70 U/L (12-78); AST (GOT) 71 U/L (15-37); CREATININE 0.98 MG/DL (0.60-1.30); GLOMERULAR FILTRATION RATE 76 ML/MIN (>89)
[2018-02-06 15:43] LABS: TOTAL BILIRUBIN ADULT 1.1 MG/DL (0.2-1.0)
[2018-02-06 15:44] LABS: TOTAL PROTEIN 7.6 GM/DL (6.4-8.2)
[2018-02-06 15:45] LABS: ALKALINE PHOSPHATASE 123 U/L (45-117)
[2018-02-06 15:46] LABS: LACTIC ACID SEPSIS PROTOCOL 3.3 mmol/L (0.4-2.0)
[2018-02-06 15:47] LABS: TROPONIN I 0.57 NG/ML (0.02-0.05)
--- NOTE | 2018-02-06 16:02 | PD ---
HPI Chief Complaint: Cardiac Complaint Time Seen by Provider: 15:14 Travel History International Travel<30 days: No Contact w/Intl Traveler<30days: No Traveled to known affect area: No History of Present Illness HPI Patient 67-year-old male history of hepatitis C, liver cirrhosis, seizure disorder, hypertension, chronic pain, history of alcohol abuse and dependence, major depressive disorder, OCD and bipolar disorder. Patient presents the emergency room with his for evaluation of tachycardia. As per patient, home nursing instructed patient to go directly to the emergency room as his heart rate was high and his pulse ox was low. Patient reports that he was recently admitted to the hospital for dehydration with lactic acidosis, patient reports that he was discharged on Sunday and has not been feeling well since his discharge home. Patient reports that he does live by himself, patient reports that he has been eating and drinking but overall has had decreased p.o. intake. Patient at this time complains of rapid heart rate, patient also complains of shortness of breath. Patient is a poor historian at baseline, patient unable to provide past medical history, he is also unable to provide medication list. Patient does repeat to me that he has history of opioid dependence, reports that he put a fentanyl patch on Sunday for about 5 hours and then took it off as he was not feeling well. Denies drinking alcohol. PFSH Past Medical History Arthritis: No Asthma: No Autoimmune Disease: No Blood Disorders: No Anxiety: No Depression: Yes Cancer: Yes (MELANOMA RIGHT ARM) Cardiovascular Problems: Yes (AORTIC ATHEROSCLEROSIS &REGURG;LVH;MITRAL REGURG) High Cholesterol: No Chemotherapy: No Cirrhosis: Yes COPD: Yes Cerebrovascular Accident: Yes (2001) Diabetes: No Diminished Hearing: No Endocrine: No GERD: No Genitourinary: No Hepatitis: Yes (C) Hiatal Hernia: No Hypertension: Yes Immune Disorder: No Implanted Vascular Access Dvce: Yes Musculoskeletal: Yes (FX RIGHT PUBIC RAMUS;LEFT SHOULDER ARTHROSIS) Neurologic: Yes (CVA;SEIZURE DISORDER) Psychiatric: Yes (ANXIETY;BIPOLAR;DEPRESSION) Reproductive: No Respiratory: Yes (BRONCHITIS) Immunizations Current: Yes Migraines: No Myocardial Infarction: No Radiation Therapy: No Seizures: Yes (2001) Sleep Apnea: No Thyroid Disease: No Ulcer: Yes PNEUMOCCOCAL Vaccine (Year): 1 ?: Not Past Surgical History Abdominal Surgery: Yes (LIVER BX) AICD: No Body Medical Devices: LEFT SHOULDER HARDWARE Cardiac Surgery: No Ear Surgery: No Endocrine Surgery: No Eye Surgery: No Genitourinary Surgery: No Gynecologic Surgery: No Joint Replacement: No Neurologic Surgery: No Oral Surgery: No Pacemaker: No Thoracic Surgery: No Other Surgery: Yes (LEFT SHOULDER) Social History Alcohol Use: Yes ("A LOT") Tobacco Use: Yes (2 PPD) Substance Use: Yes (OPIOD DEPENDENCE) Allergies-Medications (Allergen,Severity, Reaction): Coded Allergies: nabumetone (Verified Allergy, Severe, Ulcers, 02/06/18) *MDRO Multi-Drug Resistant Organism (Verified Adverse Reaction, Unknown, ) MDR-Streptococcus Pneumoniae blood 12/2015 Uncoded Allergies: "muscle relaxers" (Adverse Reaction, Unknown, stomach issues, 12/31/16) Reported Meds & Prescriptions Reported Meds & Active Scripts Active Lactulose Liq (Lactulose) 10 Gm/15 Ml Soln 30 Ml PO DAILY 10 Days Neurontin (Gabapentin) 400 Mg Cap 400 Mg PO QID Reported Levetiracetam 1,000 Mg Tab 1,000 Mg PO BID [Oxygen] 2 Ferrous Sulfate 325 Mg (65 Mg Iron) Tablet 325 Mg PO BIDPC Aripiprazole 2 Mg Tab 2 Mg PO DAILY Amlodipine (Amlodipine Besylate) 5 Mg Tab 5 Mg PO DAILY Amitriptyline (Amitriptyline HCl) 25 Mg Tab 25 Mg PO HS Risperidone 2 Mg Tab 2 Mg PO HS Review of Systems ROS Limitations: Poor Historian General / Constitutional: No: Fever Eyes: No: Visual changes HENT: No: Headaches Cardiovascular: Positive: Palpitations, Irregular Rhythm, Tachycardia, No: Chest Pain or Discomfort Respiratory: Positive: Shortness of Breath Gastrointestinal: No: Abdominal Pain Genitourinary: No: Dysuria Musculoskeletal: Positive: Weakness, No: Pain Skin: No Rash Neurologic: Positive: Weakness Psychiatric: No: Depression Endocrine: No: Polydipsia Hematologic/Lymphatic: No: Easy Bruising Physical Exam Narrative GENERAL: Tachycardic, moderate distress SKIN: Focused skin assessment warm/dry. HEAD: Atraumatic. Normocephalic. EYES: Pupils equal and round. No scleral icterus. No injection or drainage. ENT: No nasal bleeding or discharge. Mucous membranes tachy NECK: Trachea midline. No JVD. CARDIOVASCULAR: tachycardia. RESPIRATORY: No accessory muscle use. Clear to auscultation. Breath sounds equal bilaterally. GASTROINTESTINAL: Abdomen soft, non-tender, nondistended. Hepatic and splenic margins not palpable. MUSCULOSKELETAL: No obvious deformities. No clubbing. No cyanosis. No edema. NEUROLOGICAL: Awake and alert. PSYCHIATRIC: Flat mood and affect Data Data Last Documented VS Vital Signs Date Time Temp Pulse Resp B/P (MAP) Pulse Ox O2 Delivery O2 Flow Rate FiO2 02/06/18 16:45 98 16 111/67 (82) 94 Nasal Cannula 6.00 02/06/18 15:50 98.4 Orders Orders Electrocardiogram (02/06/18 15:15) B-Type Natriuretic Peptide (02/06/18 15:15) Ckmb (Isoenzyme) Profile (02/06/18 15:15) Complete Blood Count With Diff (02/06/18 15:15) Comprehensive Metabolic Panel (02/06/18 15:15) Magnesium (Mg) (02/06/18 15:15) Prothrombin Time / Inr (Pt) (02/06/18 15:15) Act Partial Throm Time (Ptt) (02/06/18 15:15) Troponin I (02/06/18 15:15) Chest, Single Ap (02/06/18 15:15) Ecg Monitoring (02/06/18 15:15) Bilateral Bp Monitoring (02/06/18 15:15) Iv Access Insert/Monitor (02/06/18 15:15) Oximetry (02/06/18 15:15) Oxygen Administration (02/06/18 15:15) Sodium Chloride 0.9% Flush (Ns Flush) (02/06/18 15:15) Sodium Chlor 0.9% 1000 Ml Inj (Ns 1000 M (02/06/18 15:15) Sodium Chlor 0.9% 1000 Ml Inj (Ns 1000 M (02/06/18 15:15) Lactic Acid Sepsis Protocol (02/06/18 15:16) Urinalysis - C+S If Indicated (02/06/18 15:16) Blood Culture (02/06/18 15:16) Etomidate Inj (Amidate Inj) (02/06/18 15:30) Ammonia (02/06/18 15:43) CKMB (02/06/18 15:15) CKMB% (02/06/18 15:15) Alcohol (Ethanol) (02/06/18 15:53) Sepsis Workup Initiated (02/06/18 ) Vancomycin Inj (Vancomycin Inj) (02/06/18 16:14) Cefepime Inj (Maxipime Inj) (02/06/18 16:14) Sodium Chlorid 0.9% 500 Ml Inj (Ns 500 M (02/06/18 16:15) Aspirin Chew (Aspirin Chew) (02/06/18 16:30) Metoprolol Tartrate (Lopressor) (02/06/18 18:15) Admit Order (Ed Use Only) (02/06/18 18:03) Labs Laboratory Tests Test 02/06/18 15:15 02/06/18 15:35 02/06/18 18:05 White Blood Count 12.6 TH/MM3 Red Blood Count 3.60 MIL/MM3 Hemoglobin 12.0 GM/DL Hematocrit 35.9 % Mean Corpuscular Volume 99.7 FL Mean Corpuscular Hemoglobin 33.2 PG Mean Corpuscular Hemoglobin Concent 33.3 % Red Cell Distribution Width 15.5 % Platelet Count 163 TH/MM3 Mean Platelet Volume 8.6 FL Neutrophils (%) (Auto) 68.4 % Lymphocytes (%) (Auto) 18.6 % Monocytes (%) (Auto) 10.2 % Eosinophils (%) (Auto) 1.8 % Basophils (%) (Auto) 1.0 % Neutrophils # (Auto) 8.7 TH/MM3 Lymphocytes # (Auto) 2.3 TH/MM3 Monocytes # (Auto) 1.3 TH/MM3 Eosinophils # (Auto) 0.2 TH/MM3 Basophils # (Auto) 0.1 TH/MM3 CBC Comment DIFF FINAL Differential Comment Prothrombin Time 12.0 SEC Prothromb Time International Ratio 1.2 RATIO Activated Partial Thromboplast Time 22.8 SEC Blood Urea Nitrogen 15 MG/DL Creatinine 0.98 MG/DL Random Glucose 114 MG/DL Total Protein 7.6 GM/DL Albumin 3.1 GM/DL Calcium Level 8.3 MG/DL Magnesium Level 2.2 MG/DL Alkaline Phosphatase 123 U/L Aspartate Amino Transf (AST/SGOT) 71 U/L Alanine Aminotransferase (ALT/SGPT) 70 U/L Total Bilirubin 1.1 MG/DL Sodium Level 136 MEQ/L Potassium Level 3.6 MEQ/L Chloride Level 104 MEQ/L Carbon Dioxide Level 23.5 MEQ/L Anion Gap 9 MEQ/L Estimat Glomerular Filtration Rate 76 ML/MIN Lactic Acid Level 3.3 mmol/L 1.8 mmol/L Total Creatine Kinase 148 U/L Creatine Kinase MB 7.1 NG/ML Troponin I 0.57 NG/ML B-Type Natriuretic Peptide 203 PG/ML Ammonia 50 MCMOL/L Ethyl Alcohol Level LESS THAN 3 MG/DL MDM Medical Decision Making Medical Screen Exam Complete: Yes Emergency Medical Condition: Yes Medical Record Reviewed: Yes Interpretation(s) Vital Signs Date Time Temp Pulse Resp B/P (MAP) Pulse Ox O2 Delivery O2 Flow Rate FiO2 02/06/18 15:44 97 16 94/65 (75) 94 Non-Rebreather 02/06/18 15:41 94 18 91/70 (77) 93 Nasal Cannula 3.00 02/06/18 15:25 142 16 79/42 (54) 89 02/06/18 15:25 158 22 84/60 (68) 95 Nasal Cannula 3.00 02/06/18 15:25 93 Nasal Cannula 3.00 EKG 1507: VT at 161bpm, qt/qtc: 307/396 repeat ekg at 1539: NSR at 93bpm, qt/qtc: 348/399 Differential Diagnosis Vtach, ACS, hepatic encephalopathy, dehydration, sepsis, pneumonia, electrolyte abnormality, PE Narrative Course Patient was sent to the emergency room by home nursing for evaluation of tachycardia and hypoxia. Patient reports that he has not been feeling well since Sunday after he was discharged from the hospital. Patient is an overall poor historian, previous records were reviewed. It appears that patient was recently hospitalized for altered mental status due to dehydration and rhabdomyolysis, as per discharge summary, patient was recommended to DC fentanyl at home due to his confusion, pt did apply patch on sunday for 5 hours. As per his hepatic encephalopathy, patient was instructed to continue taking lactulose, I am unsure if patient has been taking his medication as prescribed. During the course of the patients emergency department visit, the patients history, examination, and differential diagnosis were reviewed with the patient. The patient was placed on a monitoring and evaluation advisor with oximetry and frequent blood pressure monitoring. The patient had an IV access obtained and blood work sent for analysis. Patient initially presented unstable with V. tach on his EKG, he was hypotensive with a heart rate in the 160s. Given his unstable vital signs, decision was to emergently sedate and cardiovert patient. Verbal consent was given by the patient. The patient was initially provided 10mg IV etomidate with respiratory therapy at bedside, patient was successfully cardioverted using 50 joules The patients laboratory studies were reviewed and remarkable for : CBC & BMP Diagram 02/06/18 15:15 Total Protein 7.6, Albumin 3.1 L, Calcium Level 8.3 L, Magnesium Level 2.2, Alkaline Phosphatase 123 H, Aspartate Amino Transf (AST/SGOT) 71 H, Alanine Aminotransferase (ALT/SGPT) 70, Total Bilirubin 1.1 H Radiology studies were reviewed and remarkable for : Chest x-ray shows findings suggesting bilateral hilar and azygous adenopathy As per patient's abnormal ventricular tachycardia -patient responded to synchronized cardioversion, he does have a troponin of 0.57, he is in normal sinus rhythm at this time. He did have a mildly elevated troponin on last admission to the hospital Patient's lactic acid is 3.3, patient has been pancultured, broad-spectrum antibiotics were administered to him given his recent hospitalization: Cefepime and vancomycin were administered. Patient did have a lactic acidosis from prior admission, this was thought to be from dehydration versus seizure-like activity. Patient does appear dry in the emergency room, 30 cc/kg IV fluids were ordered for patient. Patient's ammonia level is 50 - he does have history of hepatic encephalopathy. case reviewed with Dr. Hernandez as well as Dr. Gay who accept pt to ICU at [facility], request PO dose of metoprolol Call made to automatic serging machine operator for [facility] CTA ordered to rule out pe given his tachypnea as well as his hypoxia - patient agreeable to study Last Impressions Chest X-Ray 02/06/18 0861 Signed Impressions: Service Date/Time: Tuesday, February 06, 2018 15:37 - CONCLUSION: Findings suggest bilateral hilar and azygos adenopathy. Renny Delcid MD CTA neg for for central PE Case reviewed with Dr. Diaz who will see patient in consult, request heparin gtt case reviewed with Dr Gay Critical Care Narrative Aggregate critical care time was 45 minutes. Time to perform other separately billable procedures was not included in the critical care time. My time did not include minutes spent treating any other patients simultaneously or on activities that did not directly contribute to the patient's treatment. The services I provided to this patient were to treat and/or prevent clinically significant deterioration that could result in: , decompensation, deterioration I provided critical care services requiring my management, as noted below: Chart data review, documentation time, medication orders and management, vital sign assessments/reviewing monitor data, ordering and reviewing lab tests, ordering and interpreting/reviewing x-rays and diagnostic studies, care of the patient and discussion of the patient with the admitting physicians. Procedures Procedure Narrative Cardioversion with implied emergent consent, verbal consent was given: Patient presented to the emergency room and V. tach, patient was placed on oxygen, cardiac monitors, patient had synchronized cardioversion with 50 J. After cardioversion, patient converted to NSR . Patient tolerated procedure well. Sepsis Criteria SIRS Criteria (2 or more): Heart rate over 90 Diagnosis Primary Impression: Ventricular tachycardia Additional Impressions: Sepsis Hepatic encephalopathy NSTEMI (non-ST elevation myocardial infarction) Admitting Information Admitting Physician Requests: Admit Deya Corral DO Feb 06, 2018 16:02
--- NOTE | 2018-02-06 16:04 | PD ---
Physical Exam Date Seen by Provider: Feb 06, 2018 Time Seen by Provider: 16:02 Narrative Patient is seen by Dr. Corral. Patient has been identified to be in wide-complex tachycardia possibly V. fib. His blood pressure is in the 80 systolic and patient appears to be in moderate respiratory distress. The decision has been made to do a synchronized cardioversion. She asked me to help her with conscious sedation. I performed the procedure. Please refer to my procedure note. Patient took a little longer to emerge out of the anesthesia once the procedure was done. He needed to be put on nonrebreather and constantly verbally and physically stimulated. Currently he is awake and answering questions. He does not need to nonrebreather anymore. Data Data Last Documented VS Vital Signs Date Time Temp Pulse Resp B/P (MAP) Pulse Ox O2 Delivery O2 Flow Rate FiO2 02/06/18 16:45 94 Nasal Cannula 6.00 02/06/18 16:45 98 16 111/67 (82) 02/06/18 15:50 98.4 Orders Orders Electrocardiogram (02/06/18 15:15) B-Type Natriuretic Peptide (02/06/18 15:15) Ckmb (Isoenzyme) Profile (02/06/18 15:15) Complete Blood Count With Diff (02/06/18 15:15) Comprehensive Metabolic Panel (02/06/18 15:15) Magnesium (Mg) (02/06/18 15:15) Prothrombin Time / Inr (Pt) (02/06/18 15:15) Act Partial Throm Time (Ptt) (02/06/18 15:15) Troponin I (02/06/18 15:15) Chest, Single Ap (02/06/18 15:15) Ecg Monitoring (02/06/18 15:15) Bilateral Bp Monitoring (02/06/18 15:15) Iv Access Insert/Monitor (02/06/18 15:15) Oximetry (02/06/18 15:15) Oxygen Administration (02/06/18 15:15) Sodium Chloride 0.9% Flush (Ns Flush) (02/06/18 15:15) Sodium Chlor 0.9% 1000 Ml Inj (Ns 1000 M (02/06/18 15:15) Sodium Chlor 0.9% 1000 Ml Inj (Ns 1000 M (02/06/18 15:15) Lactic Acid Sepsis Protocol (02/06/18 15:16) Urinalysis - C+S If Indicated (02/06/18 15:16) Blood Culture (02/06/18 15:16) Etomidate Inj (Amidate Inj) (02/06/18 15:30) Ammonia (02/06/18 15:43) CKMB (02/06/18 15:15) CKMB% (02/06/18 15:15) Alcohol (Ethanol) (02/06/18 15:53) Sepsis Workup Initiated (02/06/18 ) Vancomycin Inj (Vancomycin Inj) (02/06/18 16:14) Cefepime Inj (Maxipime Inj) (02/06/18 16:14) Sodium Chlorid 0.9% 500 Ml Inj (Ns 500 M (02/06/18 16:15) Aspirin Chew (Aspirin Chew) (02/06/18 16:30) Metoprolol Tartrate (Lopressor) (02/06/18 18:15) Admit Order (Ed Use Only) (02/06/18 18:03) Labs Laboratory Tests Test 02/06/18 15:15 02/06/18 15:35 02/06/18 18:05 White Blood Count 12.6 TH/MM3 Red Blood Count 3.60 MIL/MM3 Hemoglobin 12.0 GM/DL Hematocrit 35.9 % Mean Corpuscular Volume 99.7 FL Mean Corpuscular Hemoglobin 33.2 PG Mean Corpuscular Hemoglobin Concent 33.3 % Red Cell Distribution Width 15.5 % Platelet Count 163 TH/MM3 Mean Platelet Volume 8.6 FL Neutrophils (%) (Auto) 68.4 % Lymphocytes (%) (Auto) 18.6 % Monocytes (%) (Auto) 10.2 % Eosinophils (%) (Auto) 1.8 % Basophils (%) (Auto) 1.0 % Neutrophils # (Auto) 8.7 TH/MM3 Lymphocytes # (Auto) 2.3 TH/MM3 Monocytes # (Auto) 1.3 TH/MM3 Eosinophils # (Auto) 0.2 TH/MM3 Basophils # (Auto) 0.1 TH/MM3 CBC Comment DIFF FINAL Differential Comment Prothrombin Time 12.0 SEC Prothromb Time International Ratio 1.2 RATIO Activated Partial Thromboplast Time 22.8 SEC Blood Urea Nitrogen 15 MG/DL Creatinine 0.98 MG/DL Random Glucose 114 MG/DL Total Protein 7.6 GM/DL Albumin 3.1 GM/DL Calcium Level 8.3 MG/DL Magnesium Level 2.2 MG/DL Alkaline Phosphatase 123 U/L Aspartate Amino Transf (AST/SGOT) 71 U/L Alanine Aminotransferase (ALT/SGPT) 70 U/L Total Bilirubin 1.1 MG/DL Sodium Level 136 MEQ/L Potassium Level 3.6 MEQ/L Chloride Level 104 MEQ/L Carbon Dioxide Level 23.5 MEQ/L Anion Gap 9 MEQ/L Estimat Glomerular Filtration Rate 76 ML/MIN Lactic Acid Level 3.3 mmol/L 1.8 mmol/L Total Creatine Kinase 148 U/L Creatine Kinase MB 7.1 NG/ML Troponin I 0.57 NG/ML B-Type Natriuretic Peptide 203 PG/ML Ammonia 50 MCMOL/L Ethyl Alcohol Level LESS THAN 3 MG/DL MDM Supervised Visit with JAY JAY: No Procedures Procedure Narrative The following procedure was performed as an emergency to facilitate the electrical cardioversion: MODERATE SEDATION: The patient was placed on a quality assurance monitor final and pulse oximetry. An ambu bag and suction was immediately available at bedside. The patient was monitored by the nurse. Oxygen saturation , heart rate and blood pressure were monitored. Procedural sedation was acheived using 10 mg of IV etomidate. The patient was observed until awake and alert. Procedural Sedation time in attendance was 20 minutes. Scripts Prednisone (Prednisone) 10 Mg Tab 10 MG PO DIRECTED for copd for 7 Days, TAB 0 Refills 20mg po daily x 3 days and 10mg po daily x 4 days Prov: Wander Way MD 02/08/18 Metoprolol Tartrate (Metoprolol Tartrate) 25 Mg Tab 25 MG PO Q12HR for svt, #60 TAB Prov: Wander Way MD 02/08/18 [place] Last MD Feb 06, 2018 16:04
[2018-02-06] MEDS ORDERED: VANCOMYCIN INJ 1,000 MG in SODIUM CHLOR 0.9% 250 ML INJ 250 ML IV STA (16:14)
[2018-02-06] MEDS ORDERED: CEFEPIME INJ 2,000 MG in SODIUM CHLORIDE 0.9% INJ 100 ML IV STA (16:14)
[2018-02-06] MEDS ORDERED: SODIUM CHLORID 0.9% 500 ML INJ 500 ML IV ONE (16:15)
--- NOTE | 2018-02-06 16:28 | RADRPT ---
EXAM DATE/TIME: 02/06/2018 15:37 [facility] COMPARISON: CHEST PA & LAT, June 03, 2017, 3:19. CHEST SINGLE AP, January 31, 2018, 14:01. INDICATIONS : Chest pain. MEDICAL HISTORY : Cirrhosis. Hepatitis C. Hypertension. Seizures. Stroke. Melanoma. COPD. SURGICAL HISTORY : Left shoulder. ENCOUNTER: Initial ACUITY: 1 day PAIN SCORE: Non-responsive. LOCATION: Bilateral chest FINDINGS: A single view of the chest demonstrates the lungs to be symmetrically aerated without evidence of mas s, infiltrate or effusion. The cardiomediastinal contours are stable,, but there is increased promin ence of the hilar region bilaterally. The azygos region is also more prominent than on prior examina tion measuring up to 3 cm.. A intact proximal left humeral screws.. CONCLUSION: Findings suggest bilateral hilar and azygos adenopathy. Renny Delcid MD on February 06, 2018 at 16:25 Board Certified Radiologist. This report was verified electronically.
[2018-02-06] MEDS ORDERED: ASPIRIN 81 MG CHEW TAB CHEW ONE (16:30)
[2018-02-06 17:28] LABS: AUTOMATED NEUTROPHIL # 8.7 TH/MM3 (1.8-7.7); BASOPHIL # 0.1 TH/MM3 (0-0.2); EOSINOPHIL # 0.2 TH/MM3 (0-0.4); EOSINOPHIL % 1.8 % (0.0-4.0); HEMATOCRIT 35.9 % (39.0-51.0); LYMPH % 18.6 % (9.0-44.0); LYMPHOCYTE # 2.3 TH/MM3 (1.0-4.8); MEAN CELL VOLUME 99.7 FL (80.0-100.0); MEAN CORPUSCULAR HEMOGLOBIN 33.2 PG (27.0-34.0); MEAN CORPUSCULAR HGB CONC 33.3 % (32.0-36.0); MEAN PLATELET VOLUME 8.6 FL (7.0-11.0); MONO % 10.2 % (0.0-8.0); MONOCYTE # 1.3 TH/MM3 (0-0.9); NEUT % 68.4 % (16.0-70.0); PLATELET COUNT 163 TH/MM3 (150-450); RED CELL DISTRIBUTION WIDTH 15.5 % (11.6-17.2); WHITE BLOOD COUNT 12.6 TH/MM3 (4.0-11.0)
[2018-02-06] MEDS ORDERED: METOPROLOL TARTRATE 25 MG TAB PO ONE (18:15)
[2018-02-06] MEDS ORDERED: MAGNESIUM HYDROXIDE SUSP 30 ML CUP PO PRN (18:30)
[2018-02-06] MEDS ORDERED: CHLORHEXIDINE GLUCONATE 2 % 1 PACK (2 CLOTHS) TOP PRN (18:30)
[2018-02-06] MEDS ORDERED: BISACODYL 10 MG SUPP RECTAL PRN (18:30)
[2018-02-06] MEDS ORDERED: MISCELLANEOUS NURSING INFORMATION XX SCH (18:30)
[2018-02-06] MEDS ORDERED: LACTULOSE SYRUP 20 GM/30 ML CUP PO PRN (18:30)
[2018-02-06] MEDS ORDERED: SODIUM CHLORIDE 0.9% FLUSH 10 ML FLUSH IV FLUSH PRN (18:30)
[2018-02-06] MEDS ORDERED: SENNOSIDES 8.6 MG TAB PO PRN (18:30)
[2018-02-06] MEDS: SODIUM CHLOR 0.9% 1000 ML INJ 1,000 ML IV SCH (19:00)
[2018-02-06] MEDS ORDERED: IOHEXOL 350 MG/ML 10 ML VIAL (for RAD DIAG) IVCONTRAST ONE (19:14)
--- NOTE | 2018-02-06 19:25 | RADRPT ---
EXAM DATE/TIME: 02/06/2018 19:03 [facility] COMPARISON: CT THORAX W CONTRAST, December 13, 2015, 14:09. INDICATIONS : Tachycardia with hypoxia. IV CONTRAST: 65 cc Omnipaque 350 (iohexol) IV RADIATION DOSE: 13.22 CTDIvol (mGy) MEDICAL HISTORY : Hypertension. Cardiovascular disease Chronic obstructive pulmonary disease. SURGICAL HISTORY : None. ENCOUNTER: Initial ACUITY: 1 day PAIN SCALE: 0/10 LOCATION: chest TECHNIQUE: Volumetric scanning of the chest was performed using a pulmonary embolism protocol MIP images were re constructed. Using automated exposure control and adjustment of the mA and/or kV according to patien t size, radiation dose was kept as low as reasonably achievable to obtain optimal diagnostic quality images. DICOM format image data is available electronically for review and comparison. Follow-up recommendations for detected pulmonary nodules are based at a minimum on nodule size and pa tient risk factors according to Fleischner Society Guidelines. FINDINGS: Moderate emphysematous changes in both lungs. No suspicious lung lesions identified There is no axillary adenopathy. There is adenopathy in the right paratracheal region and right infr ahilar region suspicious for neoplastic process. Liver is small and shrunken moderate ascites. CONCLUSION: Abnormal mediastinal adenopathy the largest node measuring approximately 1. 6 cm. There is no suspi cious lung lesion. There is no central pulmonary emboli Small cirrhotic appearing liver with moderate ascites . Raghavendra Hernandez MD FACR on February 06, 2018 at 19:20 Board Certified Radiologist. This report was verified electronically.
[2018-02-06] MEDS ORDERED: HEPARIN-D5W 25,000 U/250 ML 250 ML IV PRN (19:45)
[2018-02-06] MEDS ORDERED: ENOXAPARIN SODIUM 40 MG/0.4 ML SYRINGE SQ SCH (20:00)
[2018-02-06 20:06] LABS: HEMATOCRIT 29.7 % (39.0-51.0); HEMOGLOBIN 9.8 GM/DL (13.0-17.0); MEAN CELL VOLUME 99.1 FL (80.0-100.0); MEAN CORPUSCULAR HEMOGLOBIN 32.8 PG (27.0-34.0); MEAN CORPUSCULAR HGB CONC 33.2 % (32.0-36.0); MEAN PLATELET VOLUME 7.9 FL (7.0-11.0); PLATELET COUNT 107 TH/MM3 (150-450); RED BLOOD COUNT 2.99 MIL/MM3 (4.50-5.90); RED CELL DISTRIBUTION WIDTH 15.2 % (11.6-17.2); WHITE BLOOD COUNT 9.6 TH/MM3 (4.0-11.0)
[2018-02-06 20:18] LABS: INTERNATIONAL NORMALIZED RATIO 1.3 RATIO; PROTHROMBIN TIME - PATIENT 12.7 SEC (9.8-11.6)
[2018-02-06] MEDS ORDERED: AMIODARONE INJ 450 MG in SODIUM CHLOR 0.9% (EXCEL) INJ 241 ML IV PRN (21:00)
[2018-02-06] MEDS ORDERED: AMIODARONE INJ 150 MG in DEXTROSE 5% IN WATER 100ML INJ 97 ML IV ONE ×2 (21:00)
[2018-02-06] MEDS: SODIUM CHLORIDE 0.9% FLUSH 10 ML FLUSH IV FLUSH SCH (23:06)
[2018-02-06] MEDS: FAMOTIDINE 20 MG/2 ML VIAL IV PUSH SCH (23:06)
[2018-02-06] MEDS: DOCUSATE SODIUM 50 MG/SENNA 8.6 MG TAB PO SCH (23:06)
[2018-02-07] VITALS (21 sets, daily range): BP systolic 108–156; BP diastolic 59–85; PULSE 76–91; RESP 16–27; TEMP 98.3–99; O2SAT 91–96
[2018-02-07] MEDS: CHLORHEXIDINE GLUCONATE 2 % 1 PACK (2 CLOTHS) TOP SCH (00:48)
[2018-02-07] MEDS ORDERED: RESP: ALBUTEROL 2.5 MG/IPRATROPIUM 0.5 MG NEB (SCH) NEB STA (01:51)
[2018-02-07] MEDS ORDERED: methylPREDNISolone SOD SUCC 125 MG/2 ML VIAL IV PUSH STA (01:51)
--- NOTE | 2018-02-07 02:08 | HHI.HP ---
HPI Service Critical Care Medicine Primary Care Physician Ramya Blanca MD Admission Diagnosis Ventricular tachycardia, Sepsis, NSTEMI Diagnosis: Travel History International Travel<30 Days: No Contact w/Intl Traveler <30 Da: No Traveled to Known Affected Are: No History of Present Illness History of Present Illness HPI Patient 67-year-old male history of hepatitis C, liver cirrhosis, seizure disorder, hypertension, chronic pain, history of alcohol abuse and dependence, major depressive disorder, OCD and bipolar disorder. Patient presented to the emergency room with his for evaluation of tachycardia. As per patient, home nursing instructed patient to go directly to the emergency room as his heart rate was high and his pulse ox was low. Patient reports that he was recently admitted to the hospital for dehydration with lactic acidosis, patient reports that he was discharged on Sunday and has not been feeling well since his discharge home. Patient reports that he does live by himself, patient reports that he has been eating and drinking but overall has had decreased p.o. intake. Patient at this time complains of rapid heart rate, patient also complains of shortness of breath. Patient is a poor historian at baseline, patient unable to provide past medical history, he is also unable to provide medication list. Patient does repeat to me that he has history of opioid dependence, reports that he put a fentanyl patch on Sunday for about 5 hours and then took it off as he was not feeling well. Denies drinking alcohol. Patient was noted to be in wide complex tachycardia suspected to be V. tach per ER physician and was cardioverted with 50 J at [place] [facility]. He was subsequently transferred to the [facility] for further evaluation. He was noted to have an elevated troponin and is being initiated on heparin drip as well as amiodarone drips. Cardiology has been consulted. [facility] Past Medical History Arthritis: No Asthma: No Autoimmune Disease: No Blood Disorders: No Anxiety: No Depression: Yes Cancer: Yes (MELANOMA RIGHT ARM) Cardiovascular Problems: Yes (AORTIC ATHEROSCLEROSIS &REGURG;LVH;MITRAL REGURG) High Cholesterol: No Chemotherapy: No Cirrhosis: Yes COPD: Yes Cerebrovascular Accident: Yes (2001) Diabetes: No Diminished Hearing: No Endocrine: No GERD: No Genitourinary: No Hepatitis: Yes (C) Hiatal Hernia: No Hypertension: Yes Immune Disorder: No Implanted Vascular Access Dvce: Yes Musculoskeletal: Yes (FX RIGHT PUBIC RAMUS;LEFT SHOULDER ARTHROSIS) Neurologic: Yes (CVA;SEIZURE DISORDER) Psychiatric: Yes (ANXIETY;BIPOLAR;DEPRESSION) Reproductive: No Respiratory: Yes (BRONCHITIS) Immunizations Current: Yes Migraines: No Myocardial Infarction: No Radiation Therapy: No Seizures: Yes (2001) Sleep Apnea: No Thyroid Disease: No Ulcer: Yes PNEUMOCCOCAL Vaccine (Year): 1 ?: Not Past Surgical History Abdominal Surgery: Yes (LIVER BX) AICD: No Body Medical Devices: LEFT SHOULDER HARDWARE Cardiac Surgery: No Ear Surgery: No Endocrine Surgery: No Eye Surgery: No Genitourinary Surgery: No Gynecologic Surgery: No Joint Replacement: No Neurologic Surgery: No Oral Surgery: No Pacemaker: No Thoracic Surgery: No Other Surgery: Yes (LEFT SHOULDER) Social History Alcohol Use: Yes ("A LOT") Tobacco Use: Yes (2 PPD) Substance Use: Yes (OPIOD DEPENDENCE) Allergies-Medications (Allergen,Severity, Reaction): Coded Allergies: nabumetone (Verified Allergy, Severe, Ulcers, 02/06/18) *MDRO Multi-Drug Resistant Organism (Verified Adverse Reaction, Unknown, ) MDR-Streptococcus Pneumoniae blood 12/2015 Uncoded Allergies: "muscle relaxers" (Adverse Reaction, Unknown, stomach issues, 12/31/16) Reported Meds & Prescriptions Reported Meds & Active Scripts Active Lactulose Liq (Lactulose) 10 Gm/15 Ml Soln 30 Ml PO DAILY 10 Days Neurontin (Gabapentin) 400 Mg Cap 400 Mg PO QID Reported Levetiracetam 1,000 Mg Tab 1,000 Mg PO BID [Oxygen] 2 Ferrous Sulfate 325 Mg (65 Mg Iron) Tablet 325 Mg PO BIDPC Aripiprazole 2 Mg Tab 2 Mg PO DAILY Amlodipine (Amlodipine Besylate) 5 Mg Tab 5 Mg PO DAILY Amitriptyline (Amitriptyline HCl) 25 Mg Tab 25 Mg PO HS Risperidone 2 Mg Tab 2 Mg PO HS Review of Systems ROS Limitations: Poor Historian General / Constitutional: No: Fever Eyes: No: Visual changes HENT: No: Headaches Cardiovascular: Positive: Palpitations, Irregular Rhythm, Tachycardia, No: Chest Pain or Discomfort Respiratory: Positive: Shortness of Breath Gastrointestinal: No: Abdominal Pain Genitourinary: No: Dysuria Musculoskeletal: Positive: Weakness, No: Pain Skin: No Rash Neurologic: Positive: Weakness Psychiatric: No: Depression Endocrine: No: Polydipsia Hematologic/Lymphatic: No: Easy Bruising Physical Exam Vital Signs Vital Signs Date Time Temp Pulse Resp B/P (MAP) Pulse Ox O2 Delivery O2 Flow Rate FiO2 02/07/18 00:29 94 Simple Mask 10.00 02/07/18 00:21 88 108/59 02/07/18 00:00 88 02/07/18 00:00 98.3 88 22 108/59 (75) 94 02/06/18 23:07 90 105/59 02/06/18 22:26 98.1 95 20 109/57 (74) 84 02/06/18 21:50 02/06/18 21:30 90 18 97/59 (72) 96 Nasal Cannula 4.00 02/06/18 20:00 92 18 103/59 (74) 95 Nasal Cannula 4.00 02/06/18 19:39 91 18 100/62 (75) 97 Nasal Cannula 4.00 02/06/18 16:45 98 16 111/67 (82) 94 Nasal Cannula 6.00 02/06/18 16:10 91 14 99/72 (81) 97 Nasal Cannula 6.00 02/06/18 16:00 93 14 97 Nasal Cannula 6.00 02/06/18 15:55 94 16 125/83 (97) 96 Nasal Cannula 6.00 02/06/18 15:52 94 6.00 02/06/18 15:50 95 Nasal Cannula 6.00 02/06/18 15:50 98.4 92 16 100/63 (75) 95 Nasal Cannula 6.00 02/06/18 15:44 97 16 94/65 (75) 94 Non-Rebreather 02/06/18 15:41 94 18 91/70 (77) 93 Nasal Cannula 3.00 02/06/18 15:25 142 16 79/42 (54) 89 02/06/18 15:25 158 22 84/60 (68) 95 Nasal Cannula 3.00 02/06/18 15:25 93 Nasal Cannula 3.00 Physical Exam Narrative GENERAL: Elderly male laying in bed with minimal tachypnea/dyspnea SKIN: Focused skin assessment warm/dry. HEAD: Atraumatic. Normocephalic. EYES: Pupils equal and round. No scleral icterus. No injection or drainage. ENT: No nasal bleeding or discharge. Mucous membranes tachy NECK: Trachea midline. No JVD. CARDIOVASCULAR: S1-S2 regular, no gallop or murmur RESPIRATORY: No accessory muscle use. Good air entry bilaterally, bilateral wheezing. No crackles GASTROINTESTINAL: Abdomen soft, non-tender, nondistended. Hepatic and splenic margins not palpable. MUSCULOSKELETAL: No obvious deformities. No clubbing. No cyanosis. No edema. NEUROLOGICAL: Awake and alert. PSYCHIATRIC: Flat mood and affect Laboratory Laboratory Tests Test 02/06/18 15:15 02/06/18 15:35 02/06/18 18:05 02/06/18 19:59 White Blood Count 12.6 9.6 Red Blood Count 3.60 2.99 Hemoglobin 12.0 9.8 Hematocrit 35.9 29.7 Mean Corpuscular Volume 99.7 99.1 Mean Corpuscular Hemoglobin 33.2 32.8 Mean Corpuscular Hemoglobin Concent 33.3 33.2 Red Cell Distribution Width 15.5 15.2 Platelet Count 163 107 Mean Platelet Volume 8.6 7.9 Neutrophils (%) (Auto) 68.4 Lymphocytes (%) (Auto) 18.6 Monocytes (%) (Auto) 10.2 Eosinophils (%) (Auto) 1.8 Basophils (%) (Auto) 1.0 Neutrophils # (Auto) 8.7 Lymphocytes # (Auto) 2.3 Monocytes # (Auto) 1.3 Eosinophils # (Auto) 0.2 Basophils # (Auto) 0.1 CBC Comment DIFF FINAL Differential Comment Prothrombin Time 12.0 12.7 Prothromb Time International Ratio 1.2 1.3 Activated Partial Thromboplast Time 22.8 22.4 Blood Urea Nitrogen 15 Creatinine 0.98 Random Glucose 114 Total Protein 7.6 Albumin 3.1 Calcium Level 8.3 Magnesium Level 2.2 Alkaline Phosphatase 123 Aspartate Amino Transf (AST/SGOT) 71 Alanine Aminotransferase (ALT/SGPT) 70 Total Bilirubin 1.1 Sodium Level 136 Potassium Level 3.6 Chloride Level 104 Carbon Dioxide Level 23.5 Anion Gap 9 Estimat Glomerular Filtration Rate 76 Lactic Acid Level 3.3 1.8 Total Creatine Kinase 148 Creatine Kinase MB 7.1 Troponin I 0.57 B-Type Natriuretic Peptide 203 Ammonia 50 Ethyl Alcohol Level LESS THAN 3 Test 02/06/18 22:30 Date/Time Source Procedure Growth Status 02/06/18 15:35 Blood Peripheral Aerobic Blood Culture Pending Received 02/06/18 15:35 Blood Peripheral Anaerobic Blood Culture Pending Received Result Diagram: 02/06/18195802/06/18 [address] Angiography 02/06/181849 Signed Impressions: Service Date/Time: Tuesday, February 06, 2018 19:03 - CONCLUSION: Abnormal mediastinal adenopathy the largest node measuring approximately 1. 6 cm. There is no suspicious lung lesion. There is no central pulmonary emboli Small cirrhotic appearing liver with moderate ascites . Raghavendra Hernandez MD FACR Chest X-Ray 02/06/181514 Signed Impressions: Service Date/Time: Tuesday, February 06, 2018 15:37 - CONCLUSION: Findings suggest bilateral hilar and azygos adenopathy. Renny Delcid MD Capbrant VTE Risk Assessment Caprini VTE Risk Assessment: Mod/High Risk (score >= 2) Caprini Risk Assessment Model Point Value = 1 Point Value = 2 Point Value = 3 Point Value = 5 Age 41-60 Minor surgery BMI > 25 kg/m2 Swollen legs Varicose veins or History of unexplained or recurrent spontaneous Oral contraceptives or hormone replacement Sepsis (< 1 month) Serious lung disease, including pneumonia (< 1 month) Abnormal pulmonary function Acute myocardial infarction Congestive heart failure (< 1 month) History of inflammatory bowel disease Medical patient at bed rest Age 61-74 Arthroscopic surgery Major open surgery (> 45 min) Laparoscopic surgery (> 45 min) Malignancy Confined to bed (> 72 hours) Immobilizing plaster cast Central venous access Age >= 75 History of VTE Family history of VTE Factor V Leiden Prothrombin [id number] Lupus anticoagulant Anticardiolipin antibodies Elevated serum homocysteine Heparin-induced thrombocytopenia Other congenital or acquired thrombophilia Stroke (< 1 month) Elective arthroplasty Hip, pelvis, or leg fracture Acute spinal cord injury (< 1 month) Prophylaxis Regimen Total Risk Factor Score Risk Level Prophylaxis Regimen 0-1 Low Early ambulation 2 Moderate Order ONE of the following: *Sequential Compression Device (SCD) *Heparin 5000 units SQ BID 3-4 Higher Order ONE of the following medications: *Heparin 5000 units SQ TID *Enoxaparin/Lovenox 40 mg SQ daily (WT < 150 kg, CrCl > 30 mL/min) *Enoxaparin/Lovenox 30 mg SQ daily (WT < 150 kg, CrCl > 10-29 mL/min) *Enoxaparin/Lovenox 30 mg SQ BID (WT < 150 kg, CrCl > 30 mL/min) AND/OR *Sequential Compression Device (SCD) 5 or more Highest Order ONE of the following medications: *Heparin 5000 units SQ TID (Preferred with Epidurals) *Enoxaparin/Lovenox 40 mg SQ daily (WT < 150 kg, CrCl > 30 mL/min) *Enoxaparin/Lovenox 30 mg SQ daily (WT < 150 kg, CrCl > 10-29 mL/min) *Enoxaparin/Lovenox 30 mg SQ BID (WT < 150 kg, CrCl > 30 mL/min) AND *Sequential Compression Device (SCD) Assessment and Plan Assessment and Plan 67-year-old male with: Wide-complex tachycardia: SVT with aberrancy versus V. tach(less likely) status post cardioversion Acute respiratory failure Positive troponin COPD exacerbation Hilar lymphadenopathy cirrhosis Ascites seizure disorder hypertension chronic pain history of alcohol abuse and dependence major depressive disorder OCD bipolar disorder Plan Neuro: Continue pain medications as needed. Follow neuro status. Resume psych meds in a.m. Cardiovascular: Started heparin and amiodarone drips. Was cardioverted earlier at [place] [facility]. Cardiology consult requested for further evaluation of arrhythmia and for further workup. Pulmonary: Supplemental O2, bronchodilators, Solu-Medrol 125 mg IV stat followed by 40 mg IV every 12 hourly. ID: Empiric antibiotic coverage with IV Levaquin. GI/liver: Nothing by mouth for now. Underlying cirrhosis noted. May require paracentesis for further evaluation of ascites. Renal/: IV hydration, strict intake output, monitor and replete electro lites , follow BUN/creatinine. Heme: Follow CBC. Hilar lymphadenopathy noted. Pulmonary being consulted for further evaluation. Endocrine: Watch for hyperglycemia, SSI for glycemic control as needed. Prophylaxis: Pepcid/SCDs. On full anticoagulation with heparin GTT Condition critical. Time spent on critical care excluding procedures 45 minutes Richie Gay MD Feb 07, 2018 02:08
[2018-02-07] MEDS: LEVOFLOXACIN 750 MG PREMIX INJ 150 ML IV SCH (03:30)
[2018-02-07 05:30] LABS: AUTOMATED NEUTROPHIL # 7.5 TH/MM3 (1.8-7.7); BASOPHIL % 0.6 % (0.0-2.0); EOSINOPHIL % 0.3 % (0.0-4.0); HEMATOCRIT 28.9 % (39.0-51.0); HEMOGLOBIN 10.2 GM/DL (13.0-17.0); LYMPH % 3.9 % (9.0-44.0); LYMPHOCYTE # 0.3 TH/MM3 (1.0-4.8); MEAN CELL VOLUME 99.6 FL (80.0-100.0); MEAN CORPUSCULAR HEMOGLOBIN 35.1 PG (27.0-34.0); MEAN CORPUSCULAR HGB CONC 35.2 % (32.0-36.0); MEAN PLATELET VOLUME 8.2 FL (7.0-11.0); MONO % 4.7 % (0.0-8.0); MONOCYTE # 0.4 TH/MM3 (0-0.9); NEUT % 90.5 % (16.0-70.0); PLATELET COUNT 84 TH/MM3 (150-450); RED CELL DISTRIBUTION WIDTH 15.7 % (11.6-17.2); WHITE BLOOD COUNT 8.2 TH/MM3 (4.0-11.0)
[2018-02-07 06:04] LABS: ALBUMIN 2.6 GM/DL (3.4-5.0); AST (GOT) 76 U/L (15-37); BICARBONATE 19.8 MEQ/L (21.0-32.0); BLOOD UREA NITROGEN 13 MG/DL (7-18); CALCIUM 7.5 MG/DL (8.5-10.1); CHLORIDE 108 MEQ/L (98-107); CREATININE 0.67 MG/DL (0.60-1.30); GLOMERULAR FILTRATION RATE 118 ML/MIN (>89); GLUCOSE,RANDOM 152 MG/DL (74-106); MAGNESIUM 1.9 MG/DL (1.5-2.5); SODIUM (NA) 138 MEQ/L (136-145)
[2018-02-07 06:05] LABS: ALT (GPT) 65 U/L (12-78); PHOSPHORUS 2.5 MG/DL (2.5-4.9)
[2018-02-07 06:07] LABS: ALKALINE PHOSPHATASE 87 U/L (45-117); TOTAL BILIRUBIN ADULT 1.2 MG/DL (0.2-1.0); TOTAL PROTEIN 6.4 GM/DL (6.4-8.2)
--- NOTE | 2018-02-07 06:26 | RADRPT ---
EXAM DATE/TIME: 02/07/2018 04:14 [place] COMPARISON: CT PULMONARY ANGIOGRAM, February 06, 2018, 19:03. CT THORAX W CONTRAST, December 13, 2015, 14:09. CHES T SINGLE AP, February 06, 2018, 15:37. INDICATIONS : Shortness of breath, possible pulmonary disease. MEDICAL HISTORY : Cirrhosis. Hepatitis C. Hypertension. Seizures Stroke COPD SURGICAL HISTORY : None. ENCOUNTER: Subsequent ACUITY: 2 days PAIN SCORE: Non-responsive. LOCATION: Bilateral chest FINDINGS: Slight elevation the right diaphragm and minimal parenchymal opacity right base again noted. Central vascular prominence again noted. Heart size within normal limits. CONCLUSION: No significant change David Snider MD on February 07, 2018 at 6:21 Board Certified Radiologist. This report was verified electronically.
[2018-02-07] MEDS: FAMOTIDINE 20 MG/2 ML VIAL IV PUSH SCH (07:33)
[2018-02-07] MEDS: SODIUM CHLORIDE 0.9% FLUSH 10 ML FLUSH IV FLUSH SCH ×2 (07:34→20:58)
[2018-02-07] MEDS: DOCUSATE SODIUM 50 MG/SENNA 8.6 MG TAB PO SCH ×2 (07:34→20:57)
[2018-02-07] MEDS: methylPREDNISolone SOD SUCC 40 MG/1 ML VIAL IV PUSH SCH ×2 (07:34→20:57)
[2018-02-07] MEDS: RESP: ALBUTEROL 2.5 MG/IPRATROPIUM 0.5 MG NEB (SCH) NEB ×3 (08:13→21:06)
--- NOTE | 2018-02-07 08:21 | PD.CONS ---
HPI Consult Requested By Primary Care Physician Ramya Blanca MD History of Present Illness 67-year-old male history of hepatitis C, liver cirrhosis, seizure disorder, hypertension, chronic pain, history of alcohol abuse and dependence, major depressive disorder, OCD and bipolar disorder. The patient states he presented yesterday because he was feeling tired. Apparently has home health nurse was evaluating him and was concerned about tachycardia. Patient denies ever having any symptoms like yesterday (tired, weak) prior. He denies any chest pain, shortness breath, or palpitations. In the ED he was found to have a wide- complex tachycardia and was cardioverted to NSR with 50 J of synchronized energy. He was started on amiodarone and heparin gtt.'s. Pulmonary angiogram showed no PE. Initial troponin was elevated at 0.57. Repeat EKG with no ischemic changes. Review of Systems Negative except as stated in the HPI Past Family Social History Allergies: Coded Allergies: nabumetone (Verified Allergy, Severe, Ulcers, 02/06/18) *MDRO Multi-Drug Resistant Organism (Verified Adverse Reaction, Unknown, ) MDR-Streptococcus Pneumoniae blood 12/2015 Uncoded Allergies: "muscle relaxers" (Adverse Reaction, Unknown, stomach issues, 12/31/16) Past Medical History hepatitis C, liver cirrhosis, seizure disorder, hypertension, chronic pain, history of alcohol abuse and dependence, major depressive disorder, OCD and bipolar disorder. Past Surgical History Biopsy of liver, colonoscopy, EGD, drainage of skin abscess left shoulder, shoulder arthrodesis, throat surgery Reported Medications Reported Meds & Active Scripts Active Lactulose Liq (Lactulose) 10 Gm/15 Ml Soln 30 Ml PO DAILY 10 Days Neurontin (Gabapentin) 400 Mg Cap 400 Mg PO QID Reported Levetiracetam 1,000 Mg Tab 1,000 Mg PO BID [Oxygen] 2 Ferrous Sulfate 325 Mg (65 Mg Iron) Tablet 325 Mg PO BIDPC Aripiprazole 2 Mg Tab 2 Mg PO DAILY Amlodipine (Amlodipine Besylate) 5 Mg Tab 5 Mg PO DAILY Amitriptyline (Amitriptyline HCl) 25 Mg Tab 25 Mg PO HS Risperidone 2 Mg Tab 2 Mg PO HS Active Ordered Medications Current Medications Medications (Trade) Dose Ordered Sig/Guille Route Start Time Stop Time Status Last Admin Sodium Chloride 1,000 ml @ 84 mls/hr [id number] IV 4/4/18 19:00 02/06/18 19:00 (NS Flush) 2 ml UNSCH PRN IV FLUSH 02/06/18 18:30 (NS Flush) 2 ml BID IV FLUSH 02/06/18 21:00 02/07/18 07:34 (Pepcid Inj) 20 mg Q12HR IV PUSH 02/06/18 21:00 02/07/18 07:33 Miscellaneous Information 1 [id number] XX 02/06/18 18:30 02/06/18 22:30 (Chlorhexidine 2% Cloth) 3 pack Taper DAILY@04 TOP 02/07/18 04:00 02/03/19 03:59 02/07/18 00:48 (Chlorhexidine 2% Cloth) 3 pack UNSCH PRN TOP 02/06/18 18:30 (Kaur-Colace) 1 tab BID PO 02/06/18 21:00 02/07/18 07:34 (Milk Of Magnesia Liq) 30 ml Q12H PRN PO 02/06/18 18:30 (Senokot) 17.2 mg Q12H PRN PO 02/06/18 18:30 (Dulcolax Supp) 10 mg DAILY PRN RECTAL 02/06/18 18:30 (Lactulose Liq) 30 ml DAILY PRN PO 02/06/18 18:30 Heparin Sodium/ Dextrose 250 ml @ 9 mls/hr TITRATE PRN IV 02/06/18 19:45 02/06/18 23:09 (SoluMEDROL INJ) 40 mg Q12HR IV PUSH 02/07/18 09:00 02/07/18 07:34 (Duoneb Neb) 1 ampule Q6HR NEB NEB 02/07/18 10:00 Levofloxacin/ Dextrose 150 ml @ 100 mls/hr Q24H IV 02/07/18 02:00 02/07/18 03:30 Family History Family history of leukemia, cirrhosis, esophageal cancer, colon cancer, gastric cancer, heart disease, hyperlipidemia and ulcerative colitis Social History Current tobacco user approximately one pack per day EtOH abuse opioid dependency but Physical Exam Vital Signs Vital Signs Date Time Temp Pulse Resp B/P (MAP) Pulse Ox O2 Delivery O2 Flow Rate FiO2 02/07/18 07:15 77 143/78 02/07/18 07:00 98.9 78 17 156/75 (102) 91 02/07/18 07:00 92 Simple Mask 10.00 02/07/18 06:30 75 146/72 02/07/18 06:00 80 02/07/18 05:50 80 155/75 02/07/18 04:00 82 02/07/18 03:49 92 Simple Mask 10.00 02/07/18 03:00 82 21 124/63 (83) 92 02/07/18 02:00 87 02/07/18 00:29 94 Simple Mask 10.00 02/07/18 00:21 88 108/59 02/07/18 00:00 88 02/07/18 00:00 98.3 88 22 108/59 (75) 94 02/06/18 23:07 90 105/59 02/06/18 22:26 98.1 95 20 109/57 (74) 84 02/06/18 21:50 02/06/18 21:30 90 18 97/59 (72) 96 Nasal Cannula 4.00 02/06/18 20:00 92 18 103/59 (74) 95 Nasal Cannula 4.00 02/06/18 19:39 91 18 100/62 (75) 97 Nasal Cannula 4.00 02/06/18 16:45 98 16 111/67 (82) 94 Nasal Cannula 6.00 02/06/18 16:10 91 14 99/72 (81) 97 Nasal Cannula 6.00 02/06/18 16:00 93 14 97 Nasal Cannula 6.00 02/06/18 15:55 94 16 125/83 (97) 96 Nasal Cannula 6.00 02/06/18 15:52 94 6.00 02/06/18 15:50 95 Nasal Cannula 6.00 02/06/18 15:50 98.4 92 16 100/63 (75) 95 Nasal Cannula 6.00 02/06/18 15:44 97 16 94/65 (75) 94 Non-Rebreather 02/06/18 15:41 94 18 91/70 (77) 93 Nasal Cannula 3.00 02/06/18 15:25 142 16 79/42 (54) 89 02/06/18 15:25 158 22 84/60 (68) 95 Nasal Cannula 3.00 02/06/18 15:25 93 Nasal Cannula 3.00 Physical Exam GENERAL: Well-developed well-nourished. In no acute distress. NECK: No carotid bruits. No JVD. CARDIOVASCULAR: Regular rate and rhythm. No murmur appreciated. RESPIRATORY: No accessory muscle use. Clear to auscultation. Breath sounds equal bilaterally. MUSCULOSKELETAL: No clubbing or cyanosis. No edema. NEUROLOGICAL: Awake and alert. Normal speech. Laboratory Laboratory Tests Test 02/06/18 15:15 02/06/18 15:35 02/06/18 18:05 02/06/18 19:59 White Blood Count 12.6 9.6 Red Blood Count 3.60 2.99 Hemoglobin 12.0 9.8 Hematocrit 35.9 29.7 Mean Corpuscular Volume 99.7 99.1 Mean Corpuscular Hemoglobin 33.2 32.8 Mean Corpuscular Hemoglobin Concent 33.3 33.2 Red Cell Distribution Width 15.5 15.2 Platelet Count 163 107 Mean Platelet Volume 8.6 7.9 Neutrophils (%) (Auto) 68.4 Lymphocytes (%) (Auto) 18.6 Monocytes (%) (Auto) 10.2 Eosinophils (%) (Auto) 1.8 Basophils (%) (Auto) 1.0 Neutrophils # (Auto) 8.7 Lymphocytes # (Auto) 2.3 Monocytes # (Auto) 1.3 Eosinophils # (Auto) 0.2 Basophils # (Auto) 0.1 CBC Comment DIFF FINAL Differential Comment Prothrombin Time 12.0 12.7 Prothromb Time International Ratio 1.2 1.3 Activated Partial Thromboplast Time 22.8 22.4 Blood Urea Nitrogen 15 Creatinine 0.98 Random Glucose 114 Total Protein 7.6 Albumin 3.1 Calcium Level 8.3 Magnesium Level 2.2 Alkaline Phosphatase 123 Aspartate Amino Transf (AST/SGOT) 71 Alanine Aminotransferase (ALT/SGPT) 70 Total Bilirubin 1.1 Sodium Level 136 Potassium Level 3.6 Chloride Level 104 Carbon Dioxide Level 23.5 Anion Gap 9 Estimat Glomerular Filtration Rate 76 Lactic Acid Level 3.3 1.8 Total Creatine Kinase 148 Creatine Kinase MB 7.1 Troponin I 0.57 B-Type Natriuretic Peptide 203 Ammonia 50 Ethyl Alcohol Level LESS THAN 3 Test 02/06/18 22:30 02/07/18 04:25 02/07/18 05:08 Nasal Screen MRSA (PCR) MRSA NOT DETECTED Activated Partial Thromboplast Time 37.2 White Blood Count 8.2 Red Blood Count 2.90 Hemoglobin 10.2 Hematocrit 28.9 Mean Corpuscular Volume 99.6 Mean Corpuscular Hemoglobin 35.1 Mean Corpuscular Hemoglobin Concent 35.2 Red Cell Distribution Width 15.7 Platelet Count 84 Mean Platelet Volume 8.2 Neutrophils (%) (Auto) 90.5 Lymphocytes (%) (Auto) 3.9 Monocytes (%) (Auto) 4.7 Eosinophils (%) (Auto) 0.3 Basophils (%) (Auto) 0.6 Neutrophils # (Auto) 7.5 Lymphocytes # (Auto) 0.3 Monocytes # (Auto) 0.4 Eosinophils # (Auto) 0.0 Basophils # (Auto) 0.0 CBC Comment AUTO DIFF Differential Comment AUTO DIFF CONFIRMED Platelet Estimate LOW Platelet Morphology Comment NORMAL Blood Urea Nitrogen 13 Creatinine 0.67 Random Glucose 152 Total Protein 6.4 Albumin 2.6 Calcium Level 7.5 Phosphorus Level 2.5 Magnesium Level 1.9 Alkaline Phosphatase 87 Aspartate Amino Transf (AST/SGOT) 76 Alanine Aminotransferase (ALT/SGPT) 65 Total Bilirubin 1.2 Sodium Level 138 Potassium Level 3.7 Chloride Level 108 Carbon Dioxide Level 19.8 Anion Gap 10 Estimat Glomerular Filtration Rate 118 Date/Time Source Procedure Growth Status 02/06/18 15:35 Blood Peripheral Aerobic Blood Culture Pending Received 02/06/18 15:35 Blood Peripheral Anaerobic Blood Culture Pending Received Result Diagram: 02/07/18 0508 02/07/18 0508 Imaging Last Impressions Chest X-Ray 02/07/18 0000 Signed Impressions: Service Date/Time: February 04:14 - CONCLUSION: No significant change David Snider MD CT Angiography 02/06/18 1850 Signed Impressions: Service Date/Time: Tuesday, February 06, 2018 19:03 - CONCLUSION: Abnormal mediastinal adenopathy the largest node measuring approximately 1. 6 cm. There is no suspicious lung lesion. There is no central pulmonary emboli Small cirrhotic appearing liver with moderate ascites . Raghavendra Hernandez MD FACR Assessment and Plan Assessment and Plan 67-year-old male history of hepatitis C, liver cirrhosis, seizure disorder, hypertension, chronic pain, history of alcohol abuse and dependence, major depressive disorder, OCD and bipolar disorder. The patient states he presented yesterday because he was feeling tired. Apparently has home health nurse was evaluating him and was concerned about tachycardia. Patient denies ever having any symptoms like yesterday (tired, weak) prior. He denies any chest pain, shortness breath, or palpitations. In the ED he was found to have a wide- complex tachycardia and was cardioverted to NSR with 50 J of synchronized energy. He was started on amiodarone and heparin gtt.'s. Pulmonary angiogram showed no PE. Initial troponin was elevated at 0.57. Repeat EKG with no ischemic changes. Wide-complex tachycardia: SVT with aberrancy versus ventricular tachycardia. No further arrhythmias overnight, DC amiodarone GTT with underlying liver disease. Troponin elevation: Troponin elevated at 0.57, however follow-up EKG with no ischemic changes. Regardless with a question of V. tach, patient will need ischemic evaluation. Platelets decreased from 163 to 84, stop heparin for now and check hit antibody. Jimy Castaneda Feb 07, 2018 08:21
[2018-02-07 09:57] LABS: CHOLESTEROL/ HDL RATIO 1.95 RATIO; HDL CHOLESTEROL 37.8 MG/DL (40.0-60.0)
[2018-02-07] MEDS ORDERED: REGADENOSON INJ 0.4 MG/5 ML SYR ONE (13:31)
--- NOTE | 2018-02-07 14:57 | RADRPT ---
EXAM DATE/TIME: 02/07/2018 13:24 [place] COMPARISON: No previous studies available for comparison. INDICATIONS : Shortness of breath. Abnormal EKG. DOSE: 26.3 mCi Tc99m Myoview at stress. 8.4 mCi Tc99m Myoview at rest. 0.4 mg Lexiscan STRESS SYMPTOMS: Shortness of breath. EJECTION FRACTION: > 70% MEDICAL HISTORY : Hypertension. Cirrhosis. Hepatitis C. Smoker. SURGICAL HISTORY : None. ENCOUNTER: Initial ACUITY: 1 day PAIN SCALE: 3/10 LOCATION: Bilateral chest TECHNIQUE: The patient underwent pharmacologic stress with infusion of prescribed dose. Continuous ECG tracing was monitored during stress. Gated SPECT imaging was performed after stress and conventional SPECT i maging was performed at rest. The examination was performed on a SPECT/CT scanner, both attenuation and non-corrected datasets were reviewed. FINDINGS: Scanning was performed with both arms down. DISTRIBUTION: The maximum perfused segment at stress is in the lateral wall. PERFUSION STUDY: The pattern of perfusion at stress is within normal limits, with utilization of perfusion within 25%. The pattern of perfusion at stress and rest is unchanged. The summed stress score is zero.. GATED STUDY: There is intact wall motion and thickening without hypokinetic or dyskinetic segments. CONCLUSION: 1. No evidence of stress-induced ischemia. 2. Intact wall motion with greater than 70% ejection fraction. RISK CATEGORY: Low (<1% Annual Mortality Rate) Renny Delcdi MD on February 07, 2018 at 14:53 Board Certified Radiologist. This report was verified electronically.
[2018-02-07] MEDS: SODIUM CHLOR 0.9% 1000 ML INJ 1,000 ML IV SCH ×2 (16:29→18:50)
--- NOTE | 2018-02-07 16:59 | ECHRPT ---
Indication: ASSESS LV FUNC CONCLUSIONS Technically very difficult study. Normal left ventricular size. Wall thickness is measured at the upper limits of normal. No definite regional wall motion abnormalities are present. The left ventricular systolic function is normal with an estimated ejection fraction in the range of 55-60%. Right ventricular size may be upper normal or slightly enlarged. Systolic function is normal. The right atrial size is mildly dilated. There is mild tricuspid valve regurgitation. The estimated pulmonary arterial pressure is 68 mmHg. Trace aortic valve regurgitation. BP: 136 / 80 HR: 79 Rhythm: Sinus MEASUREMENTS (Male / Female) Normal Values Technical Quality:Fair 2D ECHO LV Diastolic Diameter PLAX 3.5 cm 4.2 - 5.9 / 3.9 - 5.3 cm LV Systolic Diameter PLAX 2.3 cm IVS Diastolic Thickness 1.1 cm 0.6 - 1.0 / 0.6 - 0.9 cm LVPW Diastolic Thickness 1.1 cm 0.6 - 1.0 / 0.6 - 0.9 cm LV Relative Wall Thickness 0.7 RV Internal Dim ED PLAX 2.7 cm LVOT Diameter 2.2 cm Aortic Root Diameter 4.0 cm LA Systolic Diameter LX 4.2 cm 3.0 - 4.0 / 2.7 - 3.8 cm DOPPLER AV Peak Velocity 183.0 cm/s AV Peak Gradient 13.4 mmHg AV Mean Gradient 7.0 mmHg AV Velocity Time Integral 31.7 cm LVOT Peak Velocity 75.9 cm/s LVOT Peak Gradient 2.3 mmHg LVOT Velocity Time Integral 14.7 cm AV Area Cont Eq vti 1.8 cm AV Area Cont Eq pk 1.6 cm Mitral E Point Velocity 78.0 cm/s Mitral A Point Velocity 39.5 cm/s Mitral E to A Ratio 2.0 LV E' Lateral Velocity 11.8 cm/s Mitral E to LV E' Lateral Ratio 6.6 LV E' Septal Velocity 6.4 cm/s Mitral E to LV E' Septal Ratio 12.1 TR Peak Velocity 383.0 cm/s TR Peak Gradient 58.7 mmHg Right Atrial Pressure 10.0 mmHg Pulmonary Artery Systolic Pressu 68.7 mmHg Right Ventricular Systolic Press 68.7 mmHg PV Peak Velocity 74.4 cm/s PV Peak Gradient 2.2 mmHg FINDINGS LEFT VENTRICLE Normal left ventricular size. Wall thickness is measured at the upper limits of normal. No definite regional wall motion abnormalities are present. The left ventricular systolic function is normal with an estimated ejection fraction in the range of 55-60%. RIGHT VENTRICLE Right ventricular size may be upper normal or slightly enlarged. Systolic function is normal. LEFT ATRIUM The left atrial size is normal. RIGHT ATRIUM The right atrial size is mildly dilated. ATRIAL SEPTUM No atrial level shunt is demonstrated by color flow Doppler interrogation. AORTA The aortic root and proximal ascending aorta are not well visualized. MITRAL VALVE Structurally normal mitral valve. No mitral valve stenosis or regurgitation. AORTIC VALVE Trileaflet aortic valve. No aortic valve stenosis or regurgitation. Trace aortic valve regurgitation. TRICUSPID VALVE There is mild tricuspid valve regurgitation. The estimated pulmonary arterial pressure is 68 mmHg. PULMONARY VALVE The pulmonary valve is not well visualized. VESSELS The inferior vena cava was not well visualized. PERICARDIUM No pericardial effusion. Arsalan Crystal MD (Electronically Signed) Final Date:07 February 2018 16:58
[2018-02-07] MEDS: FAMOTIDINE 20 MG TAB PO SCH (20:57)
[2018-02-07] MEDS ORDERED: ACETAMINOPHEN 325 MG TAB PO ONE (23:45)
[2018-02-08] VITALS: PULSE 89
[2018-02-08] MEDS: LEVOFLOXACIN 750 MG PREMIX INJ 150 ML IV SCH (01:49)
[2018-02-08 03:00] VITALS: BP 148/71; PULSE 89; RESP 17; TEMP 98.6
[2018-02-08] MEDS: CHLORHEXIDINE GLUCONATE 2 % 1 PACK (2 CLOTHS) TOP SCH (03:31)
[2018-02-08 04:00] VITALS: PULSE 85
[2018-02-08] MEDS: RESP: ALBUTEROL 2.5 MG/IPRATROPIUM 0.5 MG NEB (SCH) NEB ×2 (04:30→09:02)
[2018-02-08 08:00] VITALS: PULSE 91; RESP 20
--- NOTE | 2018-02-08 08:14 | PD.CARD.PN ---
Subjective Subjective Remarks Patient reports he wants to go home today. He denies any chest pain, shortness of breath, palpitations. No arrhythmias noted overnight on telemetry. Objective Medications Current Medications Medications (Trade) Dose Ordered Sig/Guille Route Start Time Stop Time Status Last Admin Sodium Chloride 1,000 ml @ 84 mls/hr [id number] IV 02/06/18 19:00 02/07/18 16:29 (NS Flush) 2 ml UNSCH PRN IV FLUSH 02/06/18 18:30 (NS Flush) 2 ml BID IV FLUSH 02/06/18 21:00 02/07/18 20:58 Miscellaneous Information 1 [id number] XX 02/06/18 18:30 02/06/18 22:30 (Chlorhexidine 2% Cloth) 3 pack Taper DAILY@04 TOP 02/07/18 04:00 02/03/19 03:59 02/08/18 03:31 (Chlorhexidine 2% Cloth) 3 pack UNSCH PRN TOP 02/06/18 18:30 (Kaur-Colace) 1 tab BID PO 02/06/18 21:00 02/07/18 20:57 (Milk Of Magnesia Liq) 30 ml Q12H PRN PO 02/06/18 18:30 (Senokot) 17.2 mg Q12H PRN PO 02/06/18 18:30 (Dulcolax Supp) 10 mg DAILY PRN RECTAL 02/06/18 18:30 (Lactulose Liq) 30 ml DAILY PRN PO 02/06/18 18:30 (SoluMEDROL INJ) 40 mg Q12HR IV PUSH 02/07/18 09:00 02/07/18 20:57 (Duoneb Neb) 1 ampule Q6HR NEB NEB 02/07/18 10:00 02/08/18 04:30 Levofloxacin/ Dextrose 150 ml @ 100 mls/hr Q24H IV 02/07/18 02:00 02/08/18 01:49 (Pepcid) 20 mg BID PO 02/07/18 21:00 02/07/18 20:57 (Lopressor) 25 mg Q12HR PO 02/08/18 09:00 UNV Vital Signs / I&O Vital Signs Date Time Temp Pulse Resp B/P (MAP) Pulse Ox O2 Delivery O2 Flow Rate FiO2 02/08/18 04:00 85 02/08/18 03:00 98.6 89 17 148/71 (96) 02/08/18 00:00 89 02/07/18 23:00 99.0 89 18 148/71 (96) 92 02/07/18 21:03 93 Nasal Cannula 2.00 02/07/18 20:00 91 02/07/18 19:00 98.8 91 27 137/79 (98) 96 02/07/18 19:00 94 Nasal Cannula 4.00 02/07/18 18:00 91 02/07/18 18:00 94 Nasal Cannula 4.00 02/07/18 16:00 89 02/07/18 15:00 98.6 90 22 144/85 (104) 92 02/07/18 14:00 90 02/07/18 12:00 80 02/07/18 11:00 98.7 79 16 136/80 (98) 96 02/07/18 10:00 80 02/07/18 08:14 91 Simple Mask 10.00 I/O 02/07/18 02/07/18 02/07/18 02/08/18 02/08/18 02/08/18 07:00 15:00 23:00 07:00 15:00 23:00 Intake Total 1066.8 ml 360 ml 390 ml Output Total 400 ml 400 ml Balance 666.8 ml 360 ml -10 ml Intake Oral 0 ml 360 ml 240 ml IV Total 1066.8 ml 150 ml Output Urine Total 400 ml 400 ml # Voids 1 # Bowel Movements 0 0 1 Physical Exam GENERAL: Well-developed well-nourished. In no acute distress. NECK: No carotid bruits. No JVD. CARDIOVASCULAR: Regular rate and rhythm. No murmur appreciated. RESPIRATORY: No accessory muscle use. Clear to auscultation. Breath sounds equal bilaterally. MUSCULOSKELETAL: No clubbing or cyanosis. No edema. NEUROLOGICAL: Awake and alert. Normal speech. Laboratory Laboratory Tests Test 02/07/18 09:00 02/07/18 15:07 Troponin I 0.39 NG/ML Imaging Last Impressions Myocardial Perfusion Scan Nuc Med 02/07/18 0000 Signed Impressions: Service Date/Time: February 13:24 - CONCLUSION: 1. No evidence of stress-induced ischemia. 2. Intact wall motion with greater than 70%% ejection fraction. RISK CATEGORY: Low (<1%% Annual Mortality Rate) Renny Delcid MD Chest X-Ray 02/07/18 0000 Signed Impressions: Service Date/Time: February 04:14 - CONCLUSION: No significant change David Snider MD CT Angiography 02/06/18 1850 Signed Impressions: Service Date/Time: Tuesday, February 06, 2018 19:03 - CONCLUSION: Abnormal mediastinal adenopathy the largest node measuring approximately 1. 6 cm. There is no suspicious lung lesion. There is no central pulmonary emboli Small cirrhotic appearing liver with moderate ascites . Raghavendra Hernandez MD FACR Assessment and Plan Assessment and Plan 67-year-old male history of hepatitis C, liver cirrhosis, seizure disorder, hypertension, chronic pain, history of alcohol abuse and dependence, major depressive disorder, OCD and bipolar disorder. The patient states he presented yesterday because he was feeling tired. Apparently has home health nurse was evaluating him and was concerned about tachycardia. Patient denies ever having any symptoms like yesterday (tired, weak) prior. He denies any chest pain, shortness breath, or palpitations. In the ED he was found to have a wide- complex tachycardia and was cardioverted to NSR with 50 J of synchronized energy. He was started on amiodarone and heparin gtt.'s. Pulmonary angiogram showed no PE. Initial troponin was elevated at 0.57. Repeat EKG with no ischemic changes. Wide-complex tachycardia: SVT with aberrancy vs ventricular tachycardia. No further arrhythmias noted. Echocardiogram with normal systolic function and EF. Start low-dose metoprolol. Troponin elevation: Troponin elevated at 0.57, likely demand mediated. Checked Lexiscan which shows no evidence of ischemia. No further inpatient cardiology workup indicated at this time and patient is cleared from cardiology perspective for DC. Discussed Condition With Patient, Dr. Gan, Jimy Ramon Feb 08, 2018 08:14
[2018-02-08] MEDS ORDERED: GABAPENTIN 400 MG CAP PO ONE (08:30)
[2018-02-08] MEDS ORDERED: METOPROLOL TARTRATE 25 MG TAB PO SCH (09:00)
[2018-02-08] MEDS ORDERED: ARIPiprazole 2 MG TAB PO ONE (09:00)
[2018-02-08] MEDS: SODIUM CHLORIDE 0.9% FLUSH 10 ML FLUSH IV FLUSH SCH (09:00)
[2018-02-08] MEDS: methylPREDNISolone SOD SUCC 40 MG/1 ML VIAL IV PUSH SCH (09:14)
[2018-02-08] MEDS: DOCUSATE SODIUM 50 MG/SENNA 8.6 MG TAB PO SCH (09:14)
[2018-02-08] MEDS: FAMOTIDINE 20 MG TAB PO SCH (09:14)
--- NOTE | 2018-02-08 09:26 | MB ---
cc: Hugh Harmon MD DATE: 02/07/2018 REASON FOR CONSULTATION: Hilar lymphadenopathy. HISTORY OF PRESENT ILLNESS: The patient is a 67-year-old gentleman who came to the hospital because he was found to have evidence of tachycardia and was found to have wide complex tachycardia. He is currently in the ICU. Upon CT angiogram, he was found to have hilar lymphadenopathy. The patient denied any shortness of breath. He does not have any hemoptysis. He does have a history of multiple medical problems including hepatitis C, liver cirrhosis, seizure disorder, hypertension, history of chronic pain and alcohol abuse. The patient did have a previous CAT scan in 2016 that did not show any abnormal lymphadenopathy. PAST MEDICAL HISTORY: Reviewed in detail. PAST MEDICAL HISTORY: Reviewed in detail. SOCIAL HISTORY: Reviewed in detail. He is a smoker and continues to smoke. He smokes 2 packs per day. ALLERGIES: REVIEWED IN DETAIL. MEDICATIONS: Reviewed in detail. REVIEW OF SYSTEMS: Reviewed as well. Mainly positive for the palpitation, but he denied shortness of breath to me. He does have generalized weakness. PHYSICAL EXAMINATION: GENERAL APPEARANCE: The patient looks comfortable, lying in bed. VITAL SIGNS: Temperature is 98.6, pulse is 91, pulse oximetry is 94%. HEAD AND NECK: Atraumatic, normocephalic. Trachea midline. LUNGS: Clear. HEART: S1, S2. ABDOMEN: Soft. Positive ascites. EXTREMITIES: Trace edema. NEUROLOGIC: Alert, oriented x 3, moves all extremities. LABORATORY DATA: I reviewed all of his labs. IMAGING: I reviewed his CAT scan. The CT angiogram that showed no pulmonary embolism, but he does have mediastinal adenopathy. The largest lymph node is 1.6 cm. ASSESSMENT AND PLAN: 1. Mediastinal lymphadenopathy. 2. History of heavy tobacco abuse. 3. History of hepatitis C. 4. Liver cirrhosis. 5. Alcohol abuse. I had a discussion with the patient and I do believe he will benefit from an outpatient PET scan. I do not believe we need to pursue the workup here as an inpatient. Once he is better and discharged, we will get a PET scan and then we will decide whether we need to do a biopsy or not. I explained this to the patient in detail. This is very important because the patient does have history of heavy tobacco abuse, which will make him a higher risk for lung carcinoma. However, I would like him to be optimized from a cardiac perspective and then we can pursue this workup as an outpatient. Thank you for this consultation. MD CHARITY Dumont/OLIVERIO , 08:15 PM , 08:27 PM
--- NOTE | 2018-02-08 09:32 | HHI.PR ---
Subjective Remarks "I'm going home, I don't care what any doctor says" Objective Vitals oriented heartreg lung cta abd s/nt ext no edema Vital Signs Date Time Temp Pulse Resp B/P (MAP) Pulse Ox O2 Delivery O2 Flow Rate FiO2 02/08/18 04:00 85 02/08/18 03:00 98.6 89 17 148/71 (96) 02/08/18 00:00 89 02/07/18 23:00 99.0 89 18 148/71 (96) 92 02/07/18 21:03 93 Nasal Cannula 2.00 02/07/18 20:00 91 02/07/18 19:00 98.8 91 27 137/79 (98) 96 02/07/18 19:00 94 Nasal Cannula 4.00 02/07/18 18:00 91 02/07/18 18:00 94 Nasal Cannula 4.00 02/07/18 16:00 89 02/07/18 15:00 98.6 90 22 144/85 (104) 92 02/07/18 14:00 90 02/07/18 12:00 80 02/07/18 11:00 98.7 79 16 136/80 (98) 96 02/07/18 10:00 80 Result Diagram: 02/07/18 0508 02/07/18 0508 A/P Problem List: (1) Wide-complex tachycardia ICD Codes: I47.2 - Ventricular tachycardia Status: Acute Plan: Patient was admitted with wct and felt most likely to be svt/aberrancy and not VT He was cardioverted. amio stopped due to cirrhosis lexiscan neg for ischemia Pt was being treated by ICU for copd exacerbation and given abx emperically. Cardiology recommending low dose bb Pt demanding d/c home immediately this AM (2) Thrombocytopenia ICD Codes: D69.6 - Thrombocytopenia, unspecified Status: Chronic (3) Cirrhosis ICD Codes: K74.60 - Unspecified cirrhosis of liver Status: Chronic (4) COPD (chronic obstructive pulmonary disease) ICD Codes: J44.9 - Chronic obstructive pulmonary disease, unspecified Status: Chronic (5) Seizure disorder ICD Codes: G40.909 - Epilepsy, unspecified, not intractable, without status epilepticus Status: Chronic (6) HTN (hypertension) ICD Codes: I10 - Essential (primary) hypertension Status: Chronic Wander Way L MD Feb 08, 2018 09:32
[2018-02-08] MEDS ORDERED: PRED10 PO (09:34)
[2018-02-08] MEDS ORDERED: METO25TA3 PO (09:34)
--- NOTE | 2018-02-08 09:34 | HHI.DCPOC ---
Discharge Care Plan Diagnosis: (1) Wide-complex tachycardia (2) COPD (chronic obstructive pulmonary disease) (3) Cirrhosis (4) Seizure disorder (5) HTN (hypertension) (6) Thrombocytopenia Goals to Promote Your Health * To prevent worsening of your condition and complications * To maintain your health at the optimal level Directions to Meet Your Goals Take your medications as prescribed Follow your dietary instruction Follow activity as directed Keep your appointments as scheduled Take your immunizations and boosters as scheduled If your symptoms worsen call your PCP, if no PCP go to Urgent Care Center or Emergency Room Smoking is Dangerous to Your Health. Avoid second hand smoke Call the 24-hour hour crisis hotline for domestic abuse at [address] MD Feb 08, 2018 09:34
[2018-02-08 10:00] VITALS: BP 110/56; PULSE 76; RESP 22; TEMP 98.4; O2SAT 93
--- NOTE | 2018-02-08 11:29 | HHI.FF ---
Face to Face Verification Diagnosis: (1) Wide-complex tachycardia Physical Therapy Order: Evaluate and Treat, Improve ambulation Home Health Nursing Order: Medical education Signs/symptoms of disease process Medication education-adverse effect Nursing assessment with vital signs I have seen patient Ayush Yuen on 02/08/18. My clinical findings support the need for the requested home health care services because: Deconditioned w/ increased weakness I certify that my clinical findings support that this patient is homebound because: Unsteady gait/balance Wander Way MD Feb 08, 2018 11:29
--- NOTE | 2018-02-08 11:58 | EKG ---
Date Performed: 02/06/2018 Time Performed: 15:39:55 PTAGE: 67 years EKG: Sinus rhythm INDETERMINATE AXIS INCOMPLETE RIGHT BUNDLE BRANCH BLOCK BORDERLINE ECG PREVIOUS TRACING 02/06/18 Since the prior tracing, the left bundle branch block and the wide c omplex tachycardia have resolved. The tracing is now largely within normal limits. Clinical correlati on will be necessary to assess the significance of the intermittent rhythm disturbance. DOCTOR: eBrnadine Melissa Interpretating Date/Time 02/08/2018 11:58:38
--- NOTE | 2018-02-08 11:58 | EKG ---
Date Performed: 02/06/2018 Time Performed: 15:07:14 PTAGE: 67 years EKG: A wide complex tachycardia of uncertain mechanism, but ventricular tachycardia is not exclu ded MARKED LEFT AXIS DEVIATION POSSIBLE ANTERIOR MYOCARDIAL INFARCTION ABNORMAL ECG PREVIOUS TRACING : 01/31/2018 22.15 Since the prior tracing, the wide complex tachycardia is ne w, essentially with a typical left bundle branch configuration. Clinical correlation will be necessar y to assess the serial rhythm change. DOCTOR: Bernadine Melissa Interpretating Date/Time 02/08/2018 11:57:20
[2018-02-08 14:31] LABS: HEPARIN INDUCED PLATELET AB NEGATIVE (NEGATIVE)
== END 2018-02-08 11:45 | disposition home health service (06) | DRG 308 ==
LOC: PHED 15:03 → PHEDA 18:05 → HIMN 22:15
PROVIDERS: ADMIT Hospitalist; ATTEND Hospitalist
PROC: 5A2204Z Restoration of Cardiac Rhythm, Single (ICD-10-PCS; principal; 2018-02-06)
DX: I47.1 Supraventricular tachycardia (principal); J96.01 Acute respiratory failure with hypoxia; D69.6 Thrombocytopenia, unspecified; R18.8 Other ascites; F11.20 Opioid dependence, uncomplicated; J44.1 Chronic obstructive pulmonary disease with (acute) exacerbation; K74.60 Unspecified cirrhosis of liver; G40.909 Epilepsy, unspecified, not intractable, without status epilepticus; I10 Essential (primary) hypertension; G89.29 Other chronic pain; F42.9 Obsessive-compulsive disorder, unspecified; F41.9 Anxiety disorder, unspecified; I70.0 Atherosclerosis of aorta; I34.0 Nonrheumatic mitral (valve) insufficiency; F31.9 Bipolar disorder, unspecified; F10.20 Alcohol dependence, uncomplicated; F17.210 Nicotine dependence, cigarettes, uncomplicated; B19.20 Unspecified viral hepatitis C without hepatic coma; R59.0 Localized enlarged lymph nodes; Z85.820 Personal history of malignant melanoma of skin; Z99.81 Dependence on supplemental oxygen; Z86.73 Personal history of transient ischemic attack (TIA), and cerebral infarction without residual deficits; Z88.8 Allergy status to other drugs, medicaments and biological substances
CPT/HCPCS: 71045; 71275; 78452; 80053; 80061; 80307; 82140; 82550; 82552; 83605; 83735; 83880; 84100; 84484; 85025; 85027; 85610; 85730; 86022; 87040; 87641; 92960; 93005; 93017; 93306; 94640; 94664; 94770; 96361; 96365; 99152; 99153; A9502; J0282; J0692; J1644; J1650; J1956; J2785; J2920; J2930; J3370; J7030; J7040; J7050; Q9967

== ENCOUNTER → 2018-02-22 | Outpatient (CLI) | payer MEDICARE ==
[~2018-02-22] MED LIST changes: +METO25TA3 PO; +PRED10 PO
== END ==
LOC: CLAB 07:45
PROVIDERS: ATTEND Legal Medicine
DX: K74.60 Unspecified cirrhosis of liver (principal)
CPT/HCPCS: 36415; 82140

== ENCOUNTER → 2018-03-20 | Outpatient (CLI) | payer MEDICARE | LOC: CLAB 14:28 | PROVIDERS: ATTEND Specialist | DX: A31.0 Pulmonary mycobacterial infection (principal); B18.2 Chronic viral hepatitis C; F17.200 Nicotine dependence, unspecified, uncomplicated; G89.4 Chronic pain syndrome; G93.41 Metabolic encephalopathy; I10 Essential (primary) hypertension; K59.03 Drug induced constipation; K74.69 Other cirrhosis of liver; R60.1 Generalized edema | CPT/HCPCS: 36415; 82140 ==

== ENCOUNTER → 2018-03-28 | Outpatient (CLI) | payer MEDICARE | LOC: CLAB 15:39 | PROVIDERS: ATTEND Specialist | DX: B18.2 Chronic viral hepatitis C (principal); K59.03 Drug induced constipation; K74.69 Other cirrhosis of liver; I10 Essential (primary) hypertension; A31.0 Pulmonary mycobacterial infection; G89.4 Chronic pain syndrome | CPT/HCPCS: 36415; 82140 ==

== ENCOUNTER → 2018-04-03 | Outpatient (CLI) | payer MEDICARE | LOC: CLAB 11:44 | PROVIDERS: ATTEND Specialist | DX: I95.2 Hypotension due to drugs (principal); A31.0 Pulmonary mycobacterial infection; G89.4 Chronic pain syndrome; B18.2 Chronic viral hepatitis C; Z13.21 Encounter for screening for nutritional disorder; K74.69 Other cirrhosis of liver; G93.41 Metabolic encephalopathy; R60.1 Generalized edema; L57.0 Actinic keratosis; R79.9 Abnormal finding of blood chemistry, unspecified; I10 Essential (primary) hypertension; K59.03 Drug induced constipation; F17.200 Nicotine dependence, unspecified, uncomplicated; Z79.899 Other long term (current) drug therapy; Z20.1 Contact with and (suspected) exposure to tuberculosis | CPT/HCPCS: 36415; 82140 ==

== ENCOUNTER → 2018-04-09 | Outpatient (CLI) | payer MEDICARE | LOC: CLAB 10:09 | PROVIDERS: ATTEND Specialist | DX: J43.9 Emphysema, unspecified (principal); A31.0 Pulmonary mycobacterial infection; G89.4 Chronic pain syndrome; G93.41 Metabolic encephalopathy; R01.1 Cardiac murmur, unspecified; I10 Essential (primary) hypertension; K74.69 Other cirrhosis of liver; K59.03 Drug induced constipation; L57.0 Actinic keratosis; B18.2 Chronic viral hepatitis C; F17.200 Nicotine dependence, unspecified, uncomplicated | CPT/HCPCS: 36415; 82140 ==